=== PATIENT | female | born 1965 | race African-American/Black ===

== ENCOUNTER → 2016-03-22 | Outpatient (CLI) | payer OTHER ==
--- NOTE | 2016-03-24 09:43 | MM ---
Reason for exam: screening (asymptomatic). Last mammogram was performed 1 year and 1 month ago. History: Patient is postmenopausal. Taking hormonal contraceptives for 2 years. Physical Findings: A clinical breast exam by your physician is recommended on an annual basis and results should be correlated with mammographic findings. MG Screening Mammo w CAD Bilateral CC and MLO view(s) were taken. Prior study comparison: February 24, 2015, bilateral MG screening mammo w CAD. May 21, 2013, bilateral digital screening mammo w/CAD. The breast tissue is heterogeneously dense. This may lower the sensitivity of mammography. Stable nodule left breast. No significant changes when compared with prior studies. ASSESSMENT: Benign, BI-RAD 2 RECOMMENDATION: Routine screening mammogram of both breasts in 1 year.
== END | disposition home or self-care (01) ==
LOC: RADMAMWWP 10:51
PROVIDERS: ATTEND Obstetrics & Gynecology
DX: Z12.31 Encounter for screening mammogram for malignant neoplasm of breast (principal)

== ENCOUNTER → 2016-05-25 | Outpatient (CLI) | payer OTHER ==
[2016-05-25 13:43] LABS: Basophils % (A) 1 %; CHCM 28.9; Eosinophils % (A) 1 %; HCT 42.6 % (34.0-46.0); HDW 2.45; HGB 12.5 gm/dL (11.4-16.0); Hypochromasia Marked; Luc # (Auto) 0.17; Luc % (Auto) 4; Lymphocytes # (A) 1.2 k/uL (1.0-4.8); Lymphocytes % (A) 28 %; MCH 24.6 pg (25.0-35.0); MCHC 29.4 g/dL (31.0-37.0); MCV 83.7 fL (80.0-100.0); Mean Platelet Volume 6.4; Monocytes # (A) 0.3 k/uL (0-1.0); Monocytes % (A) 7 %; Neutrophils # (A) 2.7 k/uL (1.3-7.7); Neutrophils % (A) 60 %; RBC 5.09 m/uL (3.80-5.40); RDW 13.6 % (11.5-15.5); WBC 4.5 k/uL (3.8-10.6); WBC (Perox) 4.64
[2016-05-25 13:55] LABS: ALT 41 U/L (9-52); AST 37 U/L (14-36)
== END | disposition home or self-care (01) ==
LOC: LABMAIN 12:52
PROVIDERS: ATTEND Dermatology
DX: B35.1 Tinea unguium (principal)
CPT/HCPCS: 36415; 84450; 84460; 85025

== ENCOUNTER → 2016-07-06 | Outpatient (CLI) | payer OTHER ==
[2016-07-06 13:42] LABS: Basophils % (A) 0 %; CHCM 29.2; Eosinophils % (A) 1 %; HDW 2.47; Hypochromasia Marked; Luc # (Auto) 0.15; Luc % (Auto) 3; Lymphocytes # (A) 1.4 k/uL (1.0-4.8); Lymphocytes % (A) 27 %; MCH 24.5 pg (25.0-35.0); MCHC 29.6 g/dL (31.0-37.0); MCV 82.7 fL (80.0-100.0); Mean Platelet Volume 6.2; Monocytes # (A) 0.4 k/uL (0-1.0); Monocytes % (A) 7 %; Neutrophils # (A) 3.3 k/uL (1.3-7.7); Neutrophils % (A) 62 %; RBC 5.32 m/uL (3.80-5.40); RDW 13.1 % (11.5-15.5); WBC 5.3 k/uL (3.8-10.6); WBC (Perox) 5.23
[2016-07-06 13:50] LABS: ALT 53 U/L (9-52); AST 46 U/L (14-36)
== END | disposition home or self-care (01) ==
LOC: LABMAIN 12:14
PROVIDERS: ATTEND Nurse Practitioner Family
DX: B35.1 Tinea unguium (principal); L65.8 Other specified nonscarring hair loss; L70.0 Acne vulgaris
CPT/HCPCS: 36415; 84450; 84460; 85025

== ENCOUNTER 2016-08-15 20:42 | Observation (INO) | payer OTHER ==
[2016-08-15] MEDS ORDERED: ONDANSETRON 4 MG/2 ML VIAL IVP STA (21:18)
[2016-08-15] MEDS ORDERED: MECLIZINE 12.5 MG TAB PO STA (21:18)
[2016-08-15] MEDS ORDERED: SODIUM CHLORIDE 0.9% 1,000 ML IV STA (21:18)
[2016-08-15] MEDS ORDERED: LORazepam 2 MG/ML SYRINGE IV STA (21:18)
--- NOTE | 2016-08-15 21:18 | ED ---
Dizziness HPI - General Source: patient, RN notes reviewed, old records reviewed Mode of arrival: wheelchair Limitations: no limitations <Jerrica Box - Last Filed: 08/16/16 00:18> <Angelo Kumar - Last Filed: 08/16/16 01:07> - General Chief Complaint: Dizziness Stated Complaint: Heart racing, Dizziness Time Seen by Provider: 08/15/16 21:05 - History of Present Illness Initial Comments: This is a 51-year-old female presenting to the emergency Department chief complaint of 1 day of dizziness and lightheadedness. She also reports that she' s been vomiting. She also states that she feels like her heart is racing. She states that she has some chest discomfort. She denies any fevers or chills. She reports that yesterday she did feel like she would have the initial start of a sinus infection. She states that she did take some Tylenol headache and pain. Patient states that she was feeling somewhat better earlier this morning and then it recurred again tonight. Patient has had a lot of recent stressors in her life including the loss of her son from a tragic accident. Patient's thinks that this could be related to the amount of stress that she's been under. (Jerrica Box) - Related Data Home Medications Medication Instructions Recorded Confirmed No Known Home Medications [No 08/15/16 08/15/16 Known Home Medications] Allergies Allergy/AdvReac Type Severity Reaction Status Date / Time No Known Allergies Allergy Verified 08/15/16 21:23 Review of Systems ROS Other: All systems not noted in ROS Statement are negative. <Jerrica Box - Last Filed: 08/16/16 00:18> ROS Other: All systems not noted in ROS Statement are negative. <Angelo Kumar - Last Filed: 08/16/16 01:07> ROS Statement: Those systems with pertinent positive or pertinent negative responses have been documented in the HPI. Past Medical History Past Medical History: GERD/Reflux, Osteoarthritis (OA) Additional Past Medical History / Comment(s): bilateral knee pain History of Any Multi-Drug Resistant Organisms: None Reported Past Surgical History: Appendectomy, Orthopedic Surgery Additional Past Surgical History / Comment(s): 07/31/15 Laparoscopic Anna Fundoplication. 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 Absent: scleral icterus, conjunctival injection, periorbital swelling ENT exam: Present: normal exam, mucous membranes moist Neck exam: Present: normal inspection. Absent: tenderness, meningismus, lymphadenopathy Respiratory exam: Present: normal lung sounds bilaterally. Absent: respiratory distress, wheezes, rales, rhonchi, stridor Cardiovascular Exam: Present: regular rate, normal rhythm, normal heart sounds. Absent: systolic murmur, diastolic murmur, rubs, gallop, clicks GI/Abdominal exam: Present: soft, normal bowel sounds. Absent: distended, tenderness, guarding, rebound, rigid Extremities exam: Present: normal inspection, full ROM, normal capillary refill. Absent: tenderness, pedal edema, joint swelling, calf tenderness Back exam: Present: normal inspection Neurological exam: Present: alert, oriented X3, CN II-XII intact Psychiatric exam: Present: normal affect, normal mood Skin exam: Present: warm, dry, intact, normal color. Absent: rash <Jerrica Box - Last Filed: 08/16/16 00:18> General appearance: alert, in no apparent distress, anxious Head exam: Present: atraumatic, normocephalic, normal inspection Eye exam: Present: normal appearance, PERRL, EOMI. Absent: scleral icterus, conjunctival injection, periorbital swelling ENT exam: Present: normal exam, mucous membranes moist Neck exam: Present: normal inspection. Absent: tenderness, meningismus, lymphadenopathy Respiratory exam: Present: normal lung sounds bilaterally. Absent: respiratory distress, wheezes, rales, rhonchi, stridor Cardiovascular Exam: Present: regular rate, normal rhythm, normal heart sounds. Absent: systolic murmur, diastolic murmur, rubs, gallop, clicks GI/Abdominal exam: Present: soft, normal bowel sounds. Absent: distended, tenderness, guarding, rebound, rigid Extremities exam: Present: normal inspection, full ROM, normal capillary refill. Absent: tenderness, pedal edema, joint swelling, calf tenderness Back exam: Present: normal inspection Neurological exam: Present: alert, oriented X3, CN II-XII intact Psychiatric exam: Present: normal affect, normal mood Skin exam: Present: warm, dry, intact, normal color. Absent: rash <Angelo Kumar - Last Filed: 08/16/16 01:07> - General Exam Comments Initial Comments: 51-year-old female. Patient does appear to be consistent in some discomfort. ( Jerrica Box) Course <Jerrica Box - Last Filed: 08/16/16 00:18> <Angelo Kumar - Last Filed: 08/16/16 01:07> Vital Signs 08/15/16 08/15/16 08/15/16 20:45 22:24 22:54 Temperature 97 F L Pulse Rate 67 85 82 Respiratory 18 16 16 Rate Blood Pressure 138/84 130/78 145/66 O2 Sat by Pulse 100 95 100 Oximetry 08/15/16 08/16/16 23:54 00:47 Temperature 98 F 97.9 F Pulse Rate 85 87 Respiratory 16 16 Rate Blood Pressure 124/66 118/62 O2 Sat by Pulse 99 100 Oximetry - Reevaluation(s) Reevaluation #1: 08/15/16 23:05 is reevaluated at this time. She is feeling still dizzy. She reports that she sees double. Patient does have some horizontal nystagmus with staring. (Jerrica Box) Medical Decision Making - Lab Data Result diagrams: 08/15/16 22:00 08/15/16 22:00 <Jerrica Box - Last Filed: 08/16/16 00:18> - Lab Data Result diagrams: 08/15/16 22:00 08/15/16 22:00 <Angelo Kumar - Last Filed: 08/16/16 01:07> - Medical Decision Making 51 female in the ER for evaluation of palpitations chest pain, patient has normal EKG, normal troponin will be admitted for cardiac observation (Angelo Kumar) - Lab Data Lab Results 08/15/16 08/15/16 08/15/16 Range/Units 22:00 22:00 22:00 WBC 5.8 (3.8-10.6) k/uL RBC 4.51 (3.80-5.40) m/uL Hgb 11.2 L (11.4-16.0) gm/dL Hct 36.2 (34.0-46.0) % MCV 80.4 (80.0-100.0) fL MCH 24.8 L (25.0-35.0) pg MCHC 30.8 L (31.0-37.0) g/dL RDW 13.9 (11.5-15.5) % Plt Count 185 (150-450) k/uL Neutrophils % 66 % Lymphocytes % 24 % Monocytes % 6 % Eosinophils % 2 % Basophils % 0 % Neutrophils # 3.8 (1.3-7.7) k/uL Lymphocytes # 1.4 (1.0-4.8) k/uL Monocytes # 0.3 (0-1.0) k/uL Eosinophils # 0.1 (0-0.7) k/uL Basophils # 0.0 (0-0.2) k/uL Hypochromasia Moderate PT (9.0-12.0) sec INR (<1.1) Sodium 140 (137-145) mmol/L Potassium 4.2 (3.5-5.1) mmol/L Chloride 108 H (98-107) mmol/L Carbon Dioxide 25 (22-30) mmol/L Anion Gap 7 mmol/L BUN 25 H (7-17) mg/dL Creatinine 0.89 (0.52-1.04) mg/dL Est GFR (MDRD) Af Amer >60 (>60 ml/min/1.73 sqM) Est GFR (MDRD) Non-Af >60 (>60 ml/min/1.73 sqM) Glucose 119 H (74-99) mg/dL Plasma Lactic Acid Ugo 0.8 (0.7-2.0) mmol/L Calcium 9.1 (8.4-10.2) mg/dL Total Bilirubin 0.3 (0.2-1.3) mg/dL AST 37 H (14-36) U/L ALT 34 (9-52) U/L Alkaline Phosphatase 67 (38-126) U/L Troponin I (0.000-0.034) ng/mL Total Protein 6.7 (6.3-8.2) g/dL Albumin 3.9 (3.5-5.0) g/dL Urine Color Urine Appearance (Clear) Urine pH (5.0-8.0) Ur Specific [place] (1.001-1.035) Urine Protein (Negative) Urine Glucose (UA) (Negative) Urine Ketones (Negative) Urine Blood (Negative) Urine Nitrite (Negative) Urine Bilirubin (Negative) Urine Urobilinogen (<2.0) mg/dL Ur Leukocyte Esterase (Negative) Urine RBC (0-5) /hpf Urine WBC (0-5) /hpf 08/15/16 08/15/16 08/15/16 Range/Units 22:00 22:00 22:00 WBC (3.8-10.6) k/uL RBC (3.80-5.40) m/uL Hgb (11.4-16.0) gm/dL Hct (34.0-46.0) % MCV (80.0-100.0) fL MCH (25.0-35.0) pg MCHC (31.0-37.0) g/dL RDW (11.5-15.5) % Plt Count (150-450) k/uL Neutrophils % % Lymphocytes % % Monocytes % % Eosinophils % % Basophils % % Neutrophils # (1.3-7.7) k/uL Lymphocytes # (1.0-4.8) k/uL Monocytes # (0-1.0) k/uL Eosinophils # (0-0.7) k/uL Basophils # (0-0.2) k/uL Hypochromasia PT 10.2 (9.0-12.0) sec INR 1.0 (<1.1) Sodium (137-145) mmol/L Potassium (3.5-5.1) mmol/L Chloride (98-107) mmol/L Carbon Dioxide (22-30) mmol/L Anion Gap mmol/L BUN (7-17) mg/dL Creatinine (0.52-1.04) mg/dL Est GFR (MDRD) Af Amer (>60 ml/min/1.73 sqM) Est GFR (MDRD) Non-Af (>60 ml/min/1.73 sqM) Glucose (74-99) mg/dL Plasma Lactic Acid Ugo (0.7-2.0) mmol/L Calcium (8.4-10.2) mg/dL Total Bilirubin (0.2-1.3) mg/dL AST (14-36) U/L ALT (9-52) U/L Alkaline Phosphatase (38-126) U/L Troponin I <0.012 (0.000-0.034) ng/mL Total Protein (6.3-8.2) g/dL Albumin (3.5-5.0) g/dL Urine Color Yellow Urine Appearance Clear (Clear) Urine pH 6.5 (5.0-8.0) Ur Specific [place] 1.018 (1.001-1.035) Urine Protein Negative (Negative) Urine Glucose (UA) Negative (Negative) Urine Ketones Negative (Negative) Urine Blood Moderate H (Negative) Urine Nitrite Negative (Negative) Urine Bilirubin Negative (Negative) Urine Urobilinogen <2.0 (<2.0) mg/dL Ur Leukocyte Esterase Negative (Negative) Urine RBC 53 H (0-5) /hpf Urine WBC 1 (0-5) /hpf 08/15/16 21:56 EKG shows normal sinus rhythm. No evidence of atrial or ventricular arrhythmias. Endocrine 60 beats per minute. NM normal 94 ms. QRS ratio 80 ms. QT/QTc is 400/425 ms. No evidence of ST elevation or T-wave inversion. No evidence of atrial or ventricular arrhythmias. (Jerrica Box) Critical Care Time Critical Care Time: Yes Total Critical Care Time: 31 <Angelo Kumar - Last Filed: 08/16/16 01:07> Disposition Time of Disposition: 00:19 <Jerrica Box - Last Filed: 08/16/16 00:18> <Angelo Kumar - Last Filed: 08/16/16 01:07> Clinical Impression: Chest pain, Dizziness Disposition: ADMITTED IP TO THIS HOSP Condition: Good Instructions: Dizziness (ED) Referrals: Jasbir Smalls MD [Primary Care Provider] - 1-2 days
[2016-08-15 22:16] LABS: Basophils % (A) 0 %; CH 24.6; CHCM 30.8; Eosinophils # (A) 0.1 k/uL (0-0.7); Eosinophils % (A) 2 %; HCT 36.2 % (34.0-46.0); HDW 2.66; HGB 11.2 gm/dL (11.4-16.0); Hypochromasia Moderate; Luc # (Auto) 0.15; Luc % (Auto) 3; Lymphocytes # (A) 1.4 k/uL (1.0-4.8); Lymphocytes % (A) 24 %; MCH 24.8 pg (25.0-35.0); MCHC 30.8 g/dL (31.0-37.0); MCV 80.4 fL (80.0-100.0); Mean Platelet Volume 6.8; Monocytes # (A) 0.3 k/uL (0-1.0); Monocytes % (A) 6 %; Neutrophils # (A) 3.8 k/uL (1.3-7.7); Neutrophils % (A) 66 %; RBC 4.51 m/uL (3.80-5.40); RDW 13.9 % (11.5-15.5); WBC 5.8 k/uL (3.8-10.6); WBC (Perox) 5.59
[2016-08-15 22:18] LABS: Prothrombin Time 10.2 sec (9.0-12.0)
[2016-08-15 22:20] LABS: ALT 34 U/L (9-52); AST 37 U/L (14-36); Alkaline Phosphatase 67 U/L (38-126); Anion Gap 7 mmol/L; Blood Urea Nitrogen 25 mg/dL (7-17); Calcium 9.1 mg/dL (8.4-10.2); Carbon Dioxide 25 mmol/L (22-30); Chloride 108 mmol/L (98-107); Glucose 119 mg/dL (74-99); Non-African American GFR(MDRD) >60 (>60 ml/min/1.73 sqM); Potassium 4.2 mmol/L (3.5-5.1); Sodium 140 mmol/L (137-145); Total Bilirubin 0.3 mg/dL (0.2-1.3); Total Protein 6.7 g/dL (6.3-8.2)
[2016-08-15 22:25] VITALS: RESP 16
[2016-08-15 22:41] LABS: Appearance,Urine Clear (Clear); Bilirubin,Urine Negative (Negative); Glucose,Urine (UA) Negative (Negative); Ketones,Urine Negative (Negative); Leukocyte Esterase,Urine Negative (Negative); Nitrite,Urine Negative (Negative); PH, Urine 6.5 (5.0-8.0); Particle Count 611; Protein,Urine Negative (Negative); RBC,Urine 53 /hpf (0-5); Specific Gravity,Urine 1.018 (1.001-1.035); UA Billing (MACRO vs. MICRO) MICRO; Urobilinogen,Urine <2.0 mg/dL (<2.0); WBC,Urine 1 /hpf (0-5)
--- NOTE | 2016-08-15 22:52 | XR ---
EXAM: XR Chest, 2 Views CLINICAL HISTORY: Reason: Pain TECHNIQUE: Frontal and lateral views of the chest. COMPARISON: 04/09/15 FINDINGS: Lungs: Low lung volumes. Lungs are otherwise clear. Pleural space: Unremarkable. No pneumothorax. Heart: Unremarkable. No cardiomegaly. Mediastinum: Unremarkable. Bones/joints: Unremarkable. IMPRESSION: No acute findings.
[2016-08-16] MEDS ORDERED: ASPIRIN 325 MG TAB PO STA (00:18)
[2016-08-16] MEDS ORDERED: ACETAMINOPHEN TAB 325 MG TAB PO PRN (00:19)
[2016-08-16] MEDS ORDERED: NALOXONE 0.4 MG/ML 1 ML VIAL IV PRN (00:19)
[2016-08-16] MEDS ORDERED: IBUPROFEN 400 MG TAB PO PRN (00:19)
[2016-08-16] MEDS ORDERED: ONDANSETRON 4 MG/2 ML VIAL IVP PRN (00:19)
[2016-08-16] MEDS ORDERED: SODIUM CHLORIDE 0.9% 1,000 ML IV SCH (00:30)
[2016-08-16 02:01] VITALS: BMI 31.4
[2016-08-16] MEDS ORDERED: guaiFENesin SYRUP 100MG/5ML 200 MG/10 ML CUP PO PRN (02:11)
[2016-08-16 08:16] LABS: Creatine Kinase 412 U/L (30-135)
[2016-08-16 08:27] LABS: Troponin I <0.012 ng/mL (0.000-0.034)
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
[2016-08-16 08:33] LABS: Creatine Kinase MB 2.8 ng/mL (0.0-2.4)
[2016-08-16] MEDS ORDERED: PANTOPRAZOLE 40 MG/10 ML VIAL IV SCH (09:00)
[2016-08-16 10:35] LABS: Creatine Kinase 379 U/L (30-135)
[2016-08-16 10:48] LABS: Creatine Kinase MB 2.4 ng/mL (0.0-2.4); Troponin I <0.012 ng/mL (0.000-0.034)
[2016-08-16 12:27] VITALS: BP 118/61; PULSE 65; TEMP 98.4
[2016-08-16] MEDS ORDERED: MECLIZINE 12.5 MG TAB PO PRN (12:27)
--- NOTE | 2016-08-16 12:58 | ECHOF ---
Referral Reason:Chest pain and cardiomyopathy MEASUREMENTS -------- HEIGHT: 175.3 cm WEIGHT: 96.2 kg BP: 130/60 IVSd: 0.9 cm (0.6 - 1.1) LVIDd: 4.4 cm (3.9 - 5.3) LVPWd: 1.0 cm (0.6 - 1.1) IVSs: 1.4 cm LVIDs: 2.5 cm LVPWs: 1.7 cm LAESV Index (A-L): 29.79 ml/m Ao Diam: 3.4 cm (2.0 - 3.7) AV Cusp: 2.2 cm (1.5 - 2.6) LA Diam: 3.0 cm (2.7 - 3.8) MV EXCURSION: 13.883 mm (> 18.000) MV EF SLOPE: 104 mm/s (70 - 150) EPSS: 0.2 cm MV E Freeman: 0.76 m/s MV DecT: 296 ms MV A [place]: 0.85 m/s MV E/A Ratio: 0.89 RAP: 5.00 mmHg RVSP: 28.93 mmHg FINDINGS -------- Sinus rhythm. This was a technically good study. Left ventricular wall thickness is normal. Overall left ventricular systolic function is normal with, an EF between 55 - 60 %. The right ventricle is normal in size and function. LA is midly dilated 29-33ml/m2. The right atrium is normal in size. The aortic valve is trileaflet, and appears structurally normal. No aortic stenosis or regurgitation. Mild mitral regurgitation is present. Mild tricuspid regurgitation present. The right ventricular systolic pressure, as measured by Doppler, is 28.93mmHg. Pulmonic valve appears structurally normal. The aortic root size is normal. The pericardium is normal. CONCLUSIONS -------- 1. Sinus rhythm. 2. Mild tricuspid regurgitation present. 3. The right ventricular systolic pressure, as measured by Doppler, is 28.93mmHg. 4. Pulmonic valve appears structurally normal. 5. The aortic root size is normal. 6. The pericardium is normal. 7. This was a technically good study. 8. Left ventricular wall thickness is normal. 9. Overall left ventricular systolic function is normal with, an EF between 55 - 60 %. 10. The right ventricle is normal in size and function. 11. LA is midly dilated 29-33ml/m2. 12. The right atrium is normal in size. 13. The aortic valve is trileaflet, and appears structurally normal. No aortic stenosis or regurgitation. 14. Mild mitral regurgitation is present. DEVELOPMENTAL THERAPIST: Kimberly Garcia RDCS
--- NOTE | 2016-08-24 10:19 | HP ---
COMBINATION H&P AND DISCHARGE SUMMARY CHIEF COMPLAINTS: Chest pain and dizziness. HISTORY OF PRESENT ILLNESS: This 51-year-old woman with a past medical history of multiple medical problems such as GERD, DJD, was admitted with chest pain, dizziness. The patient is also undergoing several stressors. The patient also was vomiting, with multiple symptomatology. The patient had a headache as well. There is no history of any fever, rigor or chills. No history of loss of consciousness, seizures. No hematochezia, melena. PAST MEDICAL HISTORY: 1. GERD. 2. DJD. 3. History of bilateral knee pain. MEDICATIONS: None. ALLERGIES: NONE. FAMILY HISTORY: No history of heart disease or strokes in the family. SOCIAL HISTORY: No history of smoking. No history of alcohol intake. REVIEW OF SYSTEMS: ENT: No diminished hearing. No diminished vision. CARDIOVASCULAR SYSTEM: No angina. RESPIRATORY SYSTEM: As mentioned earlier. GI: As mentioned earlier. : No dysuria, retention. NERVOUS SYSTEM: No numbness, weakness. ALLERGY/IMMUNOLOGY: No asthma, hayfever. MUSCULOSKELETAL: As mentioned earlier. HEMATOLOGY/ONCOLOGY: No history of anemia. ENDOCRINE: No history of diabetes or hypothyroidism. CONSTITUTIONAL: As mentioned earlier. DERMATOLOGIC: Negative. RHEUMATOLOGIC: Negative. PSYCHIATRY: As mentioned earlier. PHYSICAL EXAMINATION: Patient is alert and oriented x3. Pulse is 69, blood pressure 130/87 respiration 20, temperature normal, pulse ox 97% on room air. HEENT: Conjunctivae normal. NECK: No jugular venous congestion. CARDIAC: S1, S2 muffled. RESPIRATORY: Breath sounds diminished at the bases. No rhonchi. No crackles. ABDOMEN: Soft. Non-tender. No mass palpable. LEGS: No edema. No swelling. NERVOUS SYSTEM: Higher functions as mentioned earlier. Cranial nerves 2 through 12 grossly intact. Moves all 4 limbs. No signs of cerebellar dysfunction. No focal motor neurologic deficit. LYMPHATICS: No lymph node palpable in neck, axillae or groin. SKIN: Normal. JOINTS: No active deforming arthropathy. LABS: WBC 5.8, hemoglobin 11.2. Creatine kinase 412. Troponins are normal. ASSESSMENT: 1. Chest pain, possibly musculoskeletal, possibly reflux esophagitis. 2. Dizziness. 3. History of degenerative joint disease. 4. History of gastroesophageal reflux disease. 5. Appendectomy. RECOMMENDATIONS AND DISCUSSION: In this 51-year-old woman who presented with multiple medical problems, we will monitor the patient closely. Cardiology has recommended discharge at this time. No evidence of any acute coronary event. Recommend outpatient followup with Cardiology. Otherwise, Antivert has been recommended. See order for further details. Prognosis guarded. Closely follow with primary physician. [place]
== END 2016-08-16 15:25 | disposition home or self-care (01) ==
LOC: EC 20:42 → 3OBS 08-16 01:07
PROVIDERS: ADMIT Internal Medicine; ATTEND Internal Medicine
DX: R07.89 Other chest pain (principal); R42 Dizziness and giddiness; R00.2 Palpitations; R51 Headache; R11.2 Nausea with vomiting, unspecified; R20.0 Anesthesia of skin; K21.0 Gastro-esophageal reflux disease with esophagitis; M19.90 Unspecified osteoarthritis, unspecified site
CPT/HCPCS: 96361 ×2; 96375 ×2; 96374; 99291; 36415; 93005; 93306; 80053; 82550; 82553; 83605; 84484 ×2; 85025; 85610; 81001; 71020; G0378; J2060; J2405; C9113

== ENCOUNTER 2018-02-19 16:48 | Inpatient (IN) | payer BC, OTHER ==
[2018-02-19] MEDS ORDERED: ONDANSETRON 4 MG/2 ML VIAL IVP STA (17:18)
[2018-02-19] MEDS ORDERED: SODIUM CHLORIDE 0.9% 1,000 ML IV STA (17:18)
[2018-02-19] MEDS ORDERED: DIAZEPAM 5 MG/ML 2 ML INJ IVP STA (17:18)
--- NOTE | 2018-02-19 17:26 | ED ---
Dizziness HPI <Blake Jones - Last Filed: 02/19/18 19:16> - General Source: patient Mode of arrival: wheelchair Limitations: no limitations <Marimar Gonzales - Last Filed: 02/19/18 19:24> - General Chief Complaint: Dizziness Stated Complaint: Dizzy, Heartburn Time Seen by Provider: 02/19/18 17:10 - History of Present Illness Initial Comments: 53-year-old female patient presents to the emergency department today with complaints of dizziness, chest pain, racing heart, and headache. Patient states that for the last 2 days she has had dizziness at rest, she states the dizziness is worse when she stands or bends forward. States it feels like the room is spinning. She has been nauseated and did have several episodes of dry heaves. She denies any ear pain, nasal congestion, sore throat, cough. States that she has been having chest pain on and off for the last year since her son . States she feels it is related to anxiety. She does report some intermittent shortness of breath with this. States she is having a frontal headache but denies any blurred vision or double vision. Denies any numbness or tingling to her extremities. Denies any weakness to extremities. Patient denies any recent rash, fever, chills, abdominal pain, diarrhea, constipation, back pain, hematuria, dysuria, urinary urgency, urinary frequency, or any other complaints. (Marimar Gonzales) - Related Data Home Medications Medication Instructions Recorded Confirmed Calcium Carbonate [Tums] 500 mg PO BID PRN 02/19/18 02/19/18 Ibuprofen [Motrin Ib] 400 mg PO Q6H PRN 02/19/18 02/19/18 [place]-3 Fatty Acids/Fish Oil [Fish 1 cap PO DAILY 02/19/18 02/19/18 Oil 1,000 mg Softgel] Allergies Allergy/AdvReac Type Severity Reaction Status Date / Time No Known Allergies Allergy Verified 02/19/18 17:39 Review of Systems ROS Other: All systems not noted in ROS Statement are negative. <Blake Jones - Last Filed: 02/19/18 19:16> ROS Other: All systems not noted in ROS Statement are negative. <Marimar Gonzales - Last Filed: 02/19/18 19:24> ROS Statement: Those systems with pertinent positive or pertinent negative responses have been documented in the HPI. Past Medical History Past Medical History: GERD/Reflux, Osteoarthritis (OA), Syncope Additional Past Medical History / Comment(s): bilateral knee pain History of Any Multi-Drug Resistant Organisms: None Reported Past Surgical History: Appendectomy, Orthopedic Surgery Additional Past Surgical History / Comment(s): 07/31/15 Laparoscopic Anna Fundoplication. 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 Vital signs upon presentation are temperature 97.9F, pulse 61, respirations 16, blood pressure 141/86, pulse ox 100% on room air.) Eye exam: Present: normal appearance, PERRL, EOMI. Absent: scleral icterus, conjunctival injection, periorbital swelling ENT exam: Present: normal exam, normal oropharynx, mucous membranes moist Respiratory exam: Present: normal lung sounds bilaterally. Absent: respiratory distress, wheezes, rales, rhonchi, stridor Cardiovascular Exam: Present: regular rate, normal rhythm, normal heart sounds. Absent: systolic murmur, diastolic murmur, rubs, gallop, clicks GI/Abdominal exam: Present: soft, normal bowel sounds. Absent: distended, tenderness, guarding, rebound, rigid Neurological exam: Present: alert, oriented X3, CN II-XII intact Psychiatric exam: Present: normal affect, normal mood Skin exam: Present: warm, dry, intact, normal color. Absent: rash <Marimar Gonzales - Last Filed: 02/19/18 19:24> Course <Blake Jones - Last Filed: 02/19/18 19:16> <Marimar Gonzales - Last Filed: 02/19/18 19:24> Vital Signs 02/19/18 02/19/18 17:02 18:14 Temperature 97.9 F Pulse Rate 61 63 Respiratory 16 18 Rate Blood Pressure 141/86 131/80 O2 Sat by Pulse 100 100 Oximetry - Reevaluation(s) Reevaluation #1: 02/19/18 19:16 N P supervision: I proceeded [id number] evaluation the patient did discuss the findings with her. She has had chest pain "for some time" today she has midsternal chest pain somewhat sharp in nature. No cough or phlegm production no fevers chills or sweats. She will be admitted for evaluation of chest pain. EKG was reviewed showing no acute findings. The case is discussed with Dr. rosado who is covering Dr. Smalls (Blake Jones) EKG Findings - EKG Comments: EKG Findings:: EKG obtained at 1753 shows normal sinus rhythm with a sinus arrhythmia. Ventricular rate is 63, CO interval 202, QRS duration 96, QTC 414, QTC 423. No evidence of ST elevation or depression. <Marimar Gonzales - Last Filed: 02/19/18 19:24> Medical Decision Making - Lab Data Result diagrams: 02/19/18 17:41 02/19/18 17:41 <Blake Jones - Last Filed: 02/19/18 19:16> - Lab Data Result diagrams: 02/19/18 17:41 02/19/18 17:41 - Radiology Data Radiology results: report reviewed, image reviewed <Marimar Gonzales - Last Filed: 02/19/18 19:24> - Medical Decision Making 53-year-old female patient presented to the emergency department today for complaints of dizziness and chest pain. Physical examination is relatively unremarkable. Pain was not reproducible upon palpation. Patient was quite anxious upon arrival, crying and tearful. Labs reviewed and are unremarkable. Patient was given 5 mg of Valium IV push, upon reevaluation she reports dizziness has resolved however she is still complaining of substernal chest pain. This could be related to anxiety as well however given patient's age and risk factors we'll admit for overnight observation and serial troponins. We will start heparin and consult cardiology. Did discuss findings, results, and plan with the patient, she is agreeable. (Marimar Gonzales) - Lab Data Lab Results 02/19/18 02/19/18 02/19/18 Range/Units 17:41 17:41 17:41 WBC 4.3 (3.8-10.6) k/uL RBC 5.07 (3.80-5.40) m/uL Hgb 12.0 (11.4-16.0) gm/dL Hct 40.1 (34.0-46.0) % MCV 79.0 L (80.0-100.0) fL MCH 23.7 L (25.0-35.0) pg MCHC 30.0 L (31.0-37.0) g/dL RDW 13.5 (11.5-15.5) % Plt Count 144 L (150-450) k/uL Neutrophils % 61 % Lymphocytes % 28 % Monocytes % 6 % Eosinophils % 1 % Basophils % 0 % Neutrophils # 2.6 (1.3-7.7) k/uL Lymphocytes # 1.2 (1.0-4.8) k/uL Monocytes # 0.3 (0-1.0) k/uL Eosinophils # 0.1 (0-0.7) k/uL Basophils # 0.0 (0-0.2) k/uL Hypochromasia Marked PT (9.0-12.0) sec INR (<1.2) APTT (22.0-30.0) sec Sodium 139 (137-145) mmol/L Potassium 4.4 (3.5-5.1) mmol/L Chloride 107 (98-107) mmol/L Carbon Dioxide 26 (22-30) mmol/L Anion Gap 6 mmol/L BUN 20 H (7-17) mg/dL Creatinine 0.80 (0.52-1.04) mg/dL Est GFR (CKD-EPI)AfAm >90 (>60 ml/min/1.73 sqM) Est GFR (CKD-EPI)NonAf 84 (>60 ml/min/1.73 sqM) Glucose 100 H (74-99) mg/dL Calcium 9.7 (8.4-10.2) mg/dL Magnesium 2.0 (1.6-2.3) mg/dL Total Bilirubin 0.3 (0.2-1.3) mg/dL AST 31 (14-36) U/L ALT 34 (9-52) U/L Alkaline Phosphatase 52 (38-126) U/L Total Creatine Kinase 254 H (30-135) U/L CK-MB (CK-2) <0.2 (0.0-2.4) ng/mL CK-MB (CK-2) Rel Index Troponin I (0.000-0.034) ng/mL Total Protein 7.2 (6.3-8.2) g/dL Albumin 4.1 (3.5-5.0) g/dL Urine Color Urine Appearance (Clear) Urine pH (5.0-8.0) Ur Specific [place] (1.001-1.035) Urine Protein (Negative) Urine Glucose (UA) (Negative) Urine Ketones (Negative) Urine Blood (Negative) Urine Nitrite (Negative) Urine Bilirubin (Negative) Urine Urobilinogen (<2.0) mg/dL Ur Leukocyte Esterase (Negative) Urine RBC (0-5) /hpf Urine WBC (0-5) /hpf Ur Squamous Epith Cells (0-4) /hpf Urine Bacteria (None) /hpf Urine Mucus (None) /hpf 02/19/18 02/19/18 02/19/18 Range/Units 17:41 17:41 18:43 WBC (3.8-10.6) k/uL RBC (3.80-5.40) m/uL Hgb (11.4-16.0) gm/dL Hct (34.0-46.0) % MCV (80.0-100.0) fL MCH (25.0-35.0) pg MCHC (31.0-37.0) g/dL RDW (11.5-15.5) % Plt Count (150-450) k/uL Neutrophils % % Lymphocytes % % Monocytes % % Eosinophils % % Basophils % % Neutrophils # (1.3-7.7) k/uL Lymphocytes # (1.0-4.8) k/uL Monocytes # (0-1.0) k/uL Eosinophils # (0-0.7) k/uL Basophils # (0-0.2) k/uL Hypochromasia PT 10.0 (9.0-12.0) sec INR 0.9 (<1.2) APTT 22.9 (22.0-30.0) sec Sodium (137-145) mmol/L Potassium (3.5-5.1) mmol/L Chloride (98-107) mmol/L Carbon Dioxide (22-30) mmol/L Anion Gap mmol/L BUN (7-17) mg/dL Creatinine (0.52-1.04) mg/dL Est GFR (CKD-EPI)AfAm (>60 ml/min/1.73 sqM) Est GFR (CKD-EPI)NonAf (>60 ml/min/1.73 sqM) Glucose (74-99) mg/dL Calcium (8.4-10.2) mg/dL Magnesium (1.6-2.3) mg/dL Total Bilirubin (0.2-1.3) mg/dL AST (14-36) U/L ALT (9-52) U/L Alkaline Phosphatase (38-126) U/L Total Creatine Kinase (30-135) U/L CK-MB (CK-2) (0.0-2.4) ng/mL CK-MB (CK-2) Rel Index Troponin I <0.012 (0.000-0.034) ng/mL Total Protein (6.3-8.2) g/dL Albumin (3.5-5.0) g/dL Urine Color Light Yellow Urine Appearance Clear (Clear) Urine pH 6.0 (5.0-8.0) Ur Specific [place] 1.015 (1.001-1.035) Urine Protein Negative (Negative) Urine Glucose (UA) Negative (Negative) Urine Ketones Negative (Negative) Urine Blood Negative (Negative) Urine Nitrite Negative (Negative) Urine Bilirubin Negative (Negative) Urine Urobilinogen <2.0 (<2.0) mg/dL Ur Leukocyte Esterase Moderate H (Negative) Urine RBC 2 (0-5) /hpf Urine WBC <1 (0-5) /hpf Ur Squamous Epith Cells 2 (0-4) /hpf Urine Bacteria Rare H (None) /hpf Urine Mucus Rare H (None) /hpf - Radiology Data Two-view x-ray of the chest is obtained. Report was reviewed in its entirety. Impression by Dr. Elias shows no active cardiopulmonary disease. No change. (Marimar Gonzales) Disposition <Blake Jones - Last Filed: 02/19/18 19:16> Decision to Admit Reason: Admit from EC Decision Date: 02/19/18 Decision Time: 19:24 <Marimar Gonzales - Last Filed: 02/19/18 19:24> Clinical Impression: Chest pain Disposition: ADMITTED IP TO THIS [facility] Condition: Serious Referrals: Jasbir Smalls MD [Primary Care Provider] - 1-2 days
[2018-02-19 18:00] LABS: Basophils % (A) 0 %; Eosinophils # (A) 0.1 k/uL (0-0.7); Eosinophils % (A) 1 %; HCT 40.1 % (34.0-46.0); Hypochromasia Marked; Lymphocytes # (A) 1.2 k/uL (1.0-4.8); Lymphocytes % (A) 28 %; MCH 23.7 pg (25.0-35.0); Mean Platelet Volume 6.3; Monocytes # (A) 0.3 k/uL (0-1.0); Monocytes % (A) 6 %; Neutrophils # (A) 2.6 k/uL (1.3-7.7); Neutrophils % (A) 61 %; Platelet Count 144 k/uL (150-450); RBC 5.07 m/uL (3.80-5.40); RDW 13.5 % (11.5-15.5); WBC 4.3 k/uL (3.8-10.6)
[2018-02-19 18:10] LABS: INR 0.9 (<1.2); Partial Thromboplastin Time 22.9 sec (22.0-30.0)
[2018-02-19 18:13] LABS: Creatine Kinase 254 U/L (30-135)
[2018-02-19 18:15] LABS: ALT 34 U/L (9-52); AST 31 U/L (14-36); Albumin 4.1 g/dL (3.5-5.0); Alkaline Phosphatase 52 U/L (38-126); Anion Gap 6 mmol/L; Blood Urea Nitrogen 20 mg/dL (7-17); Calcium 9.7 mg/dL (8.4-10.2); Carbon Dioxide 26 mmol/L (22-30); Chloride 107 mmol/L (98-107); Glucose 100 mg/dL (74-99); Potassium 4.4 mmol/L (3.5-5.1); Sodium 139 mmol/L (137-145); Total Bilirubin 0.3 mg/dL (0.2-1.3); Total Protein 7.2 g/dL (6.3-8.2)
--- NOTE | 2018-02-19 18:19 | XR ---
EXAMINATION TYPE: XR chest 2V DATE OF EXAM: 02/19/2018 COMPARISON: 08/15/2016 HISTORY: Dizziness TECHNIQUE: Frontal and lateral views of the chest are obtained. FINDINGS: There is no heart failure nor confluent pneumonic infiltrate. Costophrenic angles are mamadou r. Bony thorax is intact. IMPRESSION: No active cardiopulmonary disease. No change.
[2018-02-19 18:23] LABS: Creatine Kinase MB <0.2 ng/mL (0.0-2.4)
[2018-02-19 19:00] LABS: Appearance,Urine Clear (Clear); Bacteria,Urine Rare /hpf; Bilirubin,Urine Negative (Negative); Blood,Urine Negative (Negative); Color,Urine Light Yellow; Glucose,Urine (UA) Negative (Negative); Ketones,Urine Negative (Negative); Leukocyte Esterase,Urine Moderate (Negative); Mucus,Urine Rare /hpf; Nitrite,Urine Negative (Negative); Protein,Urine Negative (Negative); RBC,Urine 2 /hpf (0-5); Specific Gravity,Urine 1.015 (1.001-1.035); Squamous Epithelial Cell,Urine 2 /hpf (0-4); Urobilinogen,Urine <2.0 mg/dL (<2.0); WBC,Urine <1 /hpf (0-5)
[2018-02-19] MEDS ORDERED: NITROGLYCERIN SL TABS 0.4 MG TAB SUBLINGUAL PRN (19:15)
[2018-02-19] MEDS ORDERED: SODIUM CHLORIDE 0.9% 1,000 ML IV SCH (19:15)
[2018-02-19] MEDS ORDERED: HEPARIN SOD,PORK IN 0.45% NACL 25,000 UNIT in 0.45% NACL 1 250ML.BAG IV SCH (19:15)
[2018-02-19] MEDS ORDERED: HEPARIN SODIUM,PORCINE 5,000 UNIT/ML 1 ML VIAL IV ONE (19:15)
[2018-02-19 21:12] VITALS: BMI 31.6
[2018-02-19] MEDS ORDERED: LORazepam 0.5 MG TAB PO PRN (21:29)
[2018-02-19] MEDS ORDERED: MELATONIN 5 MG TABLET PO SCH (21:30)
[2018-02-19] MEDS ORDERED: CALCIUM CARBONATE 500 MG CHEWABLE PO PRN (21:45)
[2018-02-19] MEDS ORDERED: ACETAMINOPHEN TAB 500 MG TAB PO PRN (21:46)
[2018-02-19] MEDS ORDERED: ALPRAZolam 0.25 MG TAB PO PRN (21:46)
[2018-02-19] MEDS ORDERED: TEMAZEPAM 15 MG CAP PO PRN (21:46)
--- NOTE | 2018-02-19 22:23 | HP ---
HISTORY AND PHYSICAL I am covering for Dr. Smalls. DATE OF SERVICE: 02/19/2018 CHIEF COMPLAINT: Chest pain. HISTORY OF PRESENT ILLNESS: This 53-year-old woman with a past medical history of multiple medical problems, including GERD surgery, previous history of DJD, history of syncope, bilateral knee pain, being followed by Dr. Smalls in the outpatient setting, was under tremendous stress. The patient's son passed recently apparently. The patient was complaining of chest pain which radiated from the upper part to the lower part which was heavy in character, with some dizziness, nausea and vomiting. The patient came to [facility] and was admitted for further evaluation and treatment. There is no history of any fever, rigor or chills. No history of headache, loss of consciousness, seizures at this time. PAST MEDICAL HISTORY: 1. History of GERD surgery. 2. History of DJD. 3. History of syncope. 4. Bilateral knee pain. 5. DJD. 6. Laparoscopic Anna fundoplication. HOME MEDICATIONS: 1. Vitamin E one p.o. daily. 2. Fish oil 1 p.o. daily. 3. Motrin 400 mg q.6 p.r.n. 4. Tums 500 mg b.i.d. ALLERGIES: NONE. FAMILY HISTORY: No history heart disease or strokes in the family. SOCIAL HISTORY: No history of smoking. No history of alcohol intake. REVIEW OF SYSTEMS: ENT: No diminished hearing. No diminished vision. CARDIOVASCULAR SYSTEM: As mentioned earlier. RESPIRATORY SYSTEM: As mentioned earlier. GI: As mentioned earlier. : No dysuria or retention. NERVOUS SYSTEM: No numbness, weakness. ALLERGY/IMMUNOLOGY: No asthma, hayfever. MUSCULOSKELETAL: As mentioned earlier. HEMATOLOGY/ONCOLOGY: No history of anemia. ENDOCRINE: No history of diabetes, hypothyroidism. CONSTITUTIONAL: As mentioned earlier. DERMATOLOGY: Negative. RHEUMATOLOGY: Negative. PSYCHIATRY: As mentioned earlier. PHYSICAL EXAMINATION: Patient alert and oriented x3. Pulse 58, blood pressure 133/84, respiration 16, temperature 97.4, pulse ox 99% on room air. HEENT: Conjunctivae normal. NECK: No jugular venous distention. CARDIOVASCULAR SYSTEM: S1, S2 muffled. RESPIRATORY SYSTEM: Breath sounds diminished at the bases. No rhonchi. No crackles. ABDOMEN: Soft, non-tender. No mass palpable. LEGS: No edema. No swelling. NERVOUS SYSTEM: Higher functions as mentioned earlier. Moves all 4 limbs. No focal motor or sensory deficit. LYMPHATICS: No lymph node palpable in neck, axillae or groin. SKIN: No ulcer, rash, bleeding. LABS: WBC 4.3, hemoglobin 12. Sodium 139, potassium 4.4. ASSESSMENT: 1. Chest pain, possible unstable angina, possible gastroesophageal reflux disease. 2. History of gastroesophageal reflux disease as well as Anna fundoplication. 3. Degenerative joint disease. 4. History of syncope. 5. History of bilateral knee pain. 6. Social stressors. RECOMMENDATIONS AND DISCUSSION: In this 53-year-old woman who presented with multiple complex medical issues., we will monitor the patient closely, continue the current medications, proton pump inhibitors. Cardiology and surgery consultations. Guarded prognosis because of multiple complex medical issues. Further recommendations to follow. MMODL / IJN: [id number] /
[2018-02-19] MEDS: PANTOPRAZOLE 40 MG/10 ML VIAL IVP SCH (22:24)
[2018-02-19] MEDS: HYDROcodone/APAP 5-325MG 1 EACH TAB PO PRN (22:49)
[2018-02-20 00:09] LABS: Creatine Kinase 239 U/L (30-135)
[2018-02-20 00:23] LABS: Creatine Kinase MB 0.9 ng/mL (0.0-2.4); Troponin I <0.012 ng/mL (0.000-0.034)
[2018-02-20 08:17] VITALS: RESP 16
[2018-02-20 08:21] LABS: Basophils % (A) 0 %; Eosinophils # (A) 0.1 k/uL (0-0.7); Eosinophils % (A) 2 %; HCT 41.4 % (34.0-46.0); HGB 12.2 gm/dL (11.4-16.0); Hypochromasia Marked; Lymphocytes # (A) 1.3 k/uL (1.0-4.8); Lymphocytes % (A) 37 %; MCH 23.8 pg (25.0-35.0); MCHC 29.4 g/dL (31.0-37.0); MCV 80.9 fL (80.0-100.0); Mean Platelet Volume 7.3; Monocytes # (A) 0.2 k/uL (0-1.0); Monocytes % (A) 6 %; Neutrophils # (A) 1.8 k/uL (1.3-7.7); Neutrophils % (A) 52 %; Platelet Count 133 k/uL (150-450); RBC 5.12 m/uL (3.80-5.40); RDW 13.7 % (11.5-15.5); WBC 3.5 k/uL (3.8-10.6)
[2018-02-20 08:26] LABS: Anion Gap 7 mmol/L; Blood Urea Nitrogen 15 mg/dL (7-17); Calcium 9.1 mg/dL (8.4-10.2); Carbon Dioxide 25 mmol/L (22-30); Chloride 112 mmol/L (98-107); Cholesterol 192 mg/dL (<200); Glucose 87 mg/dL (74-99); HDL Cholesterol 57 mg/dL (40-60); LDL Cholesterol,Calculated 130 mg/dL (0-99); Potassium 4.5 mmol/L (3.5-5.1); Sodium 144 mmol/L (137-145); Triglycerides 24 mg/dL (<150)
[2018-02-20 08:42] LABS: Creatine Kinase 218 U/L (30-135)
[2018-02-20 08:56] LABS: Troponin I <0.012 ng/mL (0.000-0.034)
[2018-02-20] MEDS ORDERED: ASPIRIN 325 MG TAB PO SCH (09:00)
--- NOTE | 2018-02-20 10:45 | P.CRDCN ---
History of Present Illness Consult date: 02/20/18 Requesting physician: Keith Alvarez Consult reason: chest pain Chief complaint: Chest pain History of present illness: This is a pleasant 53-year-old -[place] female with no prior documented history of hypertension, no diabetes, no hyperlipidemia, nonsmoker. She does have history of GERD and hiatal hernia for which she underwent surgery approximately [address] Fuentes. Approximately a year ago, she unfortunately lost her son who had a motorcycle accident. His been dealing with a lot of stress recently and has been grieving. She presents to the hospital on this occasion with symptoms of chest discomfort, patient also states that she's had significant dizziness lately. According to the patient if she turns her head one way or the other or bends forward she becomes extremely dizzy and feels like the room is spinning around her. This makes her also quite nauseated although she's had no episodes of any vomiting. Over this past year since her son has passed she does get intermittent chest discomfort, she states that the pain reminds her of what she had prior to her surgery for her hiatal hernia and GERD. Patient was in the hospital on August 2016, she had an echocardiogram with Doppler study performed at that time which revealed an ejection fraction of 55-60%. Chest x-ray this admission did not reveal any active cardiopulmonary disease. EKG shows a normal sinus rhythm with no acute changes. Blood cell count 3.5, hemoglobin 12.2, platelet count 133. Sodium 144 , potassium 4.5, BUN 15, creatinine 0.8. Troponins have been negative 3. Cholesterol 192, LDL 130, HDL 57, triglycerides 24. Blood pressure this morning 107/67 with a heart rate in the 50s, 100% on room air. She is afebrile. The time of my examination this morning, patient is quite teary, has significant tenderness in the mid epigastric area. Past Medical History Past Medical History: GERD/Reflux, Osteoarthritis (OA), Syncope Additional Past Medical History / Comment(s): bilateral knee pain History of Any Multi-Drug Resistant Organisms: None Reported Past Surgical History: Appendectomy, Orthopedic Surgery Additional Past Surgical History / Comment(s): 07/31/15 Laparoscopic Anna Fundoplication. 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, EGDs Past Anesthesia/Blood Transfusion Reactions: No Reported Reaction Smoking Status: Never smoker - Past Family History Mother Family Medical History: No Reported History Medications and Allergies Home Medications Medication Instructions Recorded Confirmed Type Calcium Carbonate [Tums] 500 mg PO BID PRN 02/19/18 02/19/18 History Ibuprofen [Motrin Ib] 400 mg PO Q6H PRN 02/19/18 02/19/18 History [place]-3 Fatty Acids/Fish Oil [Fish 1 cap PO DAILY 02/19/18 02/19/18 History Oil 1,000 mg Softgel] Vitamin E 1 tab PO DAILY 02/19/18 02/19/18 History Allergies Allergy/AdvReac Type Severity Reaction Status Date / Time No Known Allergies Allergy Verified 02/19/18 21:02 Physical Exam Vitals: Vital Signs Temp Pulse Pulse Resp BP BP Pulse Ox 02/20/18 08:00 98.2 F 52 L 16 107/67 100 02/20/18 04:00 98.2 F 59 L 18 118/68 99 02/20/18 03:31 18 02/19/18 23:26 18 02/19/18 23:11 98.4 F 69 18 95/53 99 02/19/18 20:00 97.4 F L 58 L 18 133/84 99 02/19/18 19:49 97.9 F 02/19/18 19:40 60 18 142/96 100 02/19/18 18:14 63 18 131/80 100 02/19/18 17:02 97.9 F 61 16 141/86 100 Intake and Output 02/19/18 02/20/18 02/20/18 22:59 06:59 14:59 Other: # Voids 1 1 Weight 97 kg PHYSICAL EXAMINATION: GENERAL: 53-year-old -[place] female in no acute distress at the time of my examination HEENT: Head is atraumatic, normocephalic. Pupils equal, round. Sclera anicteric. Conjunctiva are clear. Mucous membranes of the mouth are moist. Neck is supple. There is no elevated jugular venous pressure. No carotid bruit is heard. HEART EXAMINATION: Heart S1, S2 normal. No murmur or gallop heard. CHEST EXAMINATION: Lungs are clear to auscultation and precussion. Positive chest wall tenderness is noted on palpation at the mid epigastric area . ABDOMEN: Soft, nontender. Bowel sounds are heard. No organomegaly noted. EXTREMITIES: 2+ peripheral pulses with no evidence of peripheral edema and no calf tenderness noted. NEUROLOGIC patient is awake, alert and oriented 3 . . Results 02/20/18 07:13 02/20/18 07:13 Cardiac Enzymes 02/19/18 02/19/18 02/19/18 Range/Units 17:41 17:41 17:41 AST 31 (14-36) U/L CK-MB (CK-2) <0.2 (0.0-2.4) ng/mL Troponin I <0.012 (0.000-0.034) ng/mL 02/19/18 02/20/18 Range/Units 23:34 07:13 AST (14-36) U/L CK-MB (CK-2) 0.9 1.0 (0.0-2.4) ng/mL Troponin I <0.012 <0.012 (0.000-0.034) ng/mL Coagulation 02/19/18 02/20/18 Range/Units 17:41 07:44 PT 10.0 (9.0-12.0) sec APTT 22.9 51.3 H (22.0-30.0) sec Lipids 02/20/18 Range/Units 07:13 Triglycerides 24 (<150) mg/dL Cholesterol 192 (<200) mg/dL HDL Cholesterol 57 (40-60) mg/dL CBC 02/19/18 02/20/18 Range/Units 17:41 07:13 WBC 4.3 3.5 L (3.8-10.6) k/uL RBC 5.07 5.12 (3.80-5.40) m/uL Hgb 12.0 12.2 (11.4-16.0) gm/dL Hct 40.1 41.4 (34.0-46.0) % Plt Count 144 L 133 L (150-450) k/uL Comprehensive Metabolic Panel 02/19/18 02/20/18 Range/Units 17:41 07:13 Sodium 139 144 (137-145) mmol/L Potassium 4.4 4.5 (3.5-5.1) mmol/L Chloride 107 112 H (98-107) mmol/L Carbon Dioxide 26 25 (22-30) mmol/L BUN 20 H 15 (7-17) mg/dL Creatinine 0.80 0.80 (0.52-1.04) mg/dL Glucose 100 H 87 (74-99) mg/dL Calcium 9.7 9.1 (8.4-10.2) mg/dL AST 31 (14-36) U/L ALT 34 (9-52) U/L Alkaline Phosphatase 52 (38-126) U/L Total Protein 7.2 (6.3-8.2) g/dL Albumin 4.1 (3.5-5.0) g/dL Current Medications Generic Name Dose Route Start Last Admin Trade Name Freq PRN Reason Stop Dose Admin Acetaminophen 500 mg 02/19/18 21:46 02/20/18 02:29 Tylenol Tab PO 500 mg Q6HR PRN Administration Fever and/ or MILD Pain Hydrocodone Bitart/Acetaminophen 1 each 02/19/18 21:46 02/19/18 22:49 [place] 5-325 PO 1 each Q6HR PRN Administration MODERATE Pain Aspirin 325 mg 02/20/18 09:00 Aspirin PO DAILY ADRIANNA Calcium Carbonate/Glycine 500 mg 02/19/18 21:45 Tums PO BID PRN GI UPSET Heparin Sodium/Sodium Chloride 250 mls @ 9.99 mls/hr 02/19/18 19:15 02/19/18 19:37 25,000 unit/ Sodium Chloride IV 10.3 units/kg/hr .Q24H ADRIANNA 9.99 mls/hr Administration Protocol 10.3 UNITS/KG/HR Sodium Chloride 1,000 mls @ 20 mls/hr 02/19/18 19:15 02/19/18 19:35 Saline 0.9% IV 20 mls/hr .Q24H ADRIANNA Administration Lorazepam 0.5 mg 02/19/18 21:29 Ativan PO TID PRN Anxiety Melatonin 5 mg 02/19/18 21:30 02/19/18 21:46 Melatonin PO 5 mg HS ADRIANNA Administration Nitroglycerin 0.4 mg 02/19/18 19:15 Nitrostat SUBLINGUAL Q5M PRN Chest Pain Pantoprazole Sodium 40 mg 02/19/18 22:00 02/19/18 22:24 Protonix IVP 40 mg BID ADRIANNA Administration Temazepam 15 mg 02/19/18 21:46 02/20/18 02:33 Restoril PO 15 mg HS PRN Administration Insomnia Intake and Output 02/19/18 02/20/18 02/20/18 22:59 06:59 14:59 Other: # Voids 1 1 Weight 97 kg 02/20/18 07:13 02/20/18 07:13 EKG Interpretations (text) EKG shows normal sinus rhythm with no acute changes Assessment and Plan Plan: Assessment and plan #1 chest pain, atypical for acute coronary syndrome. Significant chest wall tenderness at the mid epigastric area. She does have history of laparoscopic Anna fundoplication 2 years ago. Troponins are negative 3. EKG shows normal sinus rhythm with no acute changes. #2 dizziness, suggestive of possible vertigo #3 history of GERD #4 significant social stressors Plan We will repeat an echocardiogram with Doppler study. Although the patient's pain is very atypical for acute coronary syndrome we would recommend that she undergo stress testing. Also recommend starting the patient on some Antivert for her symptoms of dizziness suggestive of vertigo. Further recommendations to follow. DNP note has been reviewed, I agree with a documented findings and plan of care. Patient was seen and examined.
[2018-02-20] MEDS ORDERED: MECLIZINE 12.5 MG TAB PO SCH (11:00)
[2018-02-20 12:20] VITALS: BP 115/75; PULSE 56; TEMP 97.7
--- NOTE | 2018-02-20 12:22 | P.GSCN ---
History of Present Illness Consult date: 02/20/18 Reason for Consult: GERD History of present illness: This a 53-year-old female known to myself. Patient has a history of hiatal hernia and reflux. Patient was admitted to the hospital for workup of chest pain. She states that she may be going home today. Her GERD has been a chronic problem. Past Medical History Past Medical History: GERD/Reflux, Osteoarthritis (OA), Syncope Additional Past Medical History / Comment(s): bilateral knee pain History of Any Multi-Drug Resistant Organisms: None Reported Past Surgical History: Appendectomy, Orthopedic Surgery Additional Past Surgical History / Comment(s): 07/31/15 Laparoscopic Anna Fundoplication. 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, EGDs Past Anesthesia/Blood Transfusion Reactions: No Reported Reaction Smoking Status: Never smoker - Past Family History Mother Family Medical History: No Reported History Medications and Allergies Home Medications Medication Instructions Recorded Confirmed Type Calcium Carbonate [Tums] 500 mg PO BID PRN 02/19/18 02/19/18 History Ibuprofen [Motrin Ib] 400 mg PO Q6H PRN 02/19/18 02/19/18 History [place]-3 Fatty Acids/Fish Oil [Fish 1 cap PO DAILY 02/19/18 02/19/18 History Oil 1,000 mg Softgel] Vitamin E 1 tab PO DAILY 02/19/18 02/19/18 History Acetaminophen Tab [Tylenol] 500 mg PO Q6HR PRN tab 02/20/18 Rx Pantoprazole Sodium [Protonix] 40 mg PO BID #60 tablet. 02/20/18 Rx Allergies Allergy/AdvReac Type Severity Reaction Status Date / Time No Known Allergies Allergy Verified 02/19/18 21:02 Surgical - Exam Vital Signs Temp Pulse Resp BP Pulse Ox 97.9 F 61 16 141/86 100 02/19/18 17:02 02/19/18 17:02 02/19/18 17:02 02/19/18 17:02 02/19/18 17:02 - General well developed, well nourished, no distress - Eyes PERRL - ENT normal pinna - Neck no masses - Respiratory normal expansion - Cardiovascular Rhythm: regular - Abdomen Abdomen: soft, non tender Results - Labs 02/20/18 07:13 02/20/18 07:13 Abnormal Lab Results - Last 24 Hours (Table) 02/19/18 02/19/18 02/19/18 Range/Units 17:41 17:41 17:41 WBC (3.8-10.6) k/uL MCV 79.0 L (80.0-100.0) fL MCH 23.7 L (25.0-35.0) pg MCHC 30.0 L (31.0-37.0) g/dL Plt Count 144 L (150-450) k/uL APTT (22.0-30.0) sec Chloride (98-107) mmol/L BUN 20 H (7-17) mg/dL Glucose 100 H (74-99) mg/dL Total Creatine Kinase 254 H (30-135) U/L LDL Cholesterol, Calc (0-99) mg/dL Ur Leukocyte Esterase (Negative) Urine Bacteria (None) /hpf Urine Mucus (None) /hpf 02/19/18 02/19/18 02/20/18 Range/Units 18:43 23:34 07:13 WBC (3.8-10.6) k/uL MCV (80.0-100.0) fL MCH (25.0-35.0) pg MCHC (31.0-37.0) g/dL Plt Count (150-450) k/uL APTT (22.0-30.0) sec Chloride (98-107) mmol/L BUN (7-17) mg/dL Glucose (74-99) mg/dL Total Creatine Kinase 239 H 218 H (30-135) U/L LDL Cholesterol, Calc (0-99) mg/dL Ur Leukocyte Esterase Moderate H (Negative) Urine Bacteria Rare H (None) /hpf Urine Mucus Rare H (None) /hpf 02/20/18 02/20/18 02/20/18 Range/Units 07:13 07:13 07:44 WBC 3.5 L (3.8-10.6) k/uL MCV (80.0-100.0) fL MCH 23.8 L (25.0-35.0) pg MCHC 29.4 L (31.0-37.0) g/dL Plt Count 133 L (150-450) k/uL APTT 51.3 H (22.0-30.0) sec Chloride 112 H (98-107) mmol/L BUN (7-17) mg/dL Glucose (74-99) mg/dL Total Creatine Kinase (30-135) U/L LDL Cholesterol, Calc 130 H (0-99) mg/dL Ur Leukocyte Esterase (Negative) Urine Bacteria (None) /hpf Urine Mucus (None) /hpf Diabetes panel 02/19/18 02/20/18 Range/Units 17:41 07:13 Sodium 139 144 (137-145) mmol/L Potassium 4.4 4.5 (3.5-5.1) mmol/L Chloride 107 112 H (98-107) mmol/L Carbon Dioxide 26 25 (22-30) mmol/L BUN 20 H 15 (7-17) mg/dL Creatinine 0.80 0.80 (0.52-1.04) mg/dL Glucose 100 H 87 (74-99) mg/dL Calcium 9.7 9.1 (8.4-10.2) mg/dL AST 31 (14-36) U/L ALT 34 (9-52) U/L Alkaline Phosphatase 52 (38-126) U/L Total Protein 7.2 (6.3-8.2) g/dL Albumin 4.1 (3.5-5.0) g/dL Triglycerides 24 (<150) mg/dL HDL Cholesterol 57 (40-60) mg/dL Calcium panel 02/19/18 02/20/18 Range/Units 17:41 07:13 Calcium 9.7 9.1 (8.4-10.2) mg/dL Albumin 4.1 (3.5-5.0) g/dL Pituitary panel 02/19/18 02/20/18 Range/Units 17:41 07:13 Sodium 139 144 (137-145) mmol/L Potassium 4.4 4.5 (3.5-5.1) mmol/L Chloride 107 112 H (98-107) mmol/L Carbon Dioxide 26 25 (22-30) mmol/L BUN 20 H 15 (7-17) mg/dL Creatinine 0.80 0.80 (0.52-1.04) mg/dL Glucose 100 H 87 (74-99) mg/dL Calcium 9.7 9.1 (8.4-10.2) mg/dL Adrenal panel 02/19/18 02/20/18 Range/Units 17:41 07:13 Sodium 139 144 (137-145) mmol/L Potassium 4.4 4.5 (3.5-5.1) mmol/L Chloride 107 112 H (98-107) mmol/L Carbon Dioxide 26 25 (22-30) mmol/L BUN 20 H 15 (7-17) mg/dL Creatinine 0.80 0.80 (0.52-1.04) mg/dL Glucose 100 H 87 (74-99) mg/dL Calcium 9.7 9.1 (8.4-10.2) mg/dL Total Bilirubin 0.3 (0.2-1.3) mg/dL AST 31 (14-36) U/L ALT 34 (9-52) U/L Alkaline Phosphatase 52 (38-126) U/L Total Protein 7.2 (6.3-8.2) g/dL Albumin 4.1 (3.5-5.0) g/dL Assessment and Plan Assessment: History of GERD. Patient will undergo esophagram and EGD. This may be done as an inpatient or an outpatient depending on her discharge status. If she is discharged home today. She will see myself in the office next week.
[2018-02-20] MEDS: HYDROcodone/APAP 5-325MG 1 EACH TAB PO PRN (12:28)
[2018-02-20] MEDS: PANTOPRAZOLE 40 MG/10 ML VIAL IVP SCH (12:28)
--- NOTE | 2018-02-21 10:03 | DS ---
DISCHARGE SUMMARY DATE OF SERVICE: 02/20/2018 FINAL DIAGNOSES: 1. Chest pain, possible gastroesophageal reflux disease, myocardial infarction ruled. 2. Gastroesophageal reflux disease as well as Anan fundoplication. 3. Degenerative joint disease. 4. History of syncope. 5. History of bilateral knee pain. 6. Social stressor. HISTORY OF PRESENT ILLNESS: This 53-year-old woman with past medical history of multiple medical problems, presented with chest pain, myocardial infarction ruled out. Cardiology saw the patient and recommended followup. Dr. Porras for surgery also saw the patient and recommended outpatient followup. On exam, vital signs are stable. Cardiovascular: S1, S2. Abdomen soft. Nervous system: No focal deficits. DIET: Cardiac. FOLLOWUP: Follow up with Dr. Smalls in 1-2 days, follow up with Dr. Porras as recommended. Follow up with cardiology as recommended. MEDICATIONS ARE: 1. Tums 500 mg b.i.d. p.r.n. 2. Motrin 400 mg p.r.n. 3. [place]-3 1 p.o. daily. 4. Vitamin E 100 daily. 5. Tylenol 500 mg q.6h p.r.n. 6. Protonix 40 mg p.o. b.i.d. Patient discharged in stable condition with guarded prognosis. MMODL / IJN: [id number] /
--- NOTE | 2018-02-21 17:02 | ECHOF ---
Referral Reason:chest pain MEASUREMENTS -------- HEIGHT: 175.3 cm WEIGHT: 96.6 kg BP: 118/68 RVIDd: 3.0 cm (< 3.3) IVSd: 1.4 cm (0.6 - 1.1) LVIDd: 3.9 cm (3.9 - 5.3) LVPWd: 1.4 cm (0.6 - 1.1) IVSs: 1.6 cm LVIDs: 2.9 cm LVPWs: 1.6 cm LA Diam: 3.8 cm (2.7 - 3.8) LAESV Index (A-L): 30.91 ml/m Ao Diam: 3.0 cm (2.0 - 3.7) AV Cusp: 1.4 cm (1.5 - 2.6) EPSS: 1.0 cm MV E Freeman: 0.68 m/s MV DecT: 236 ms MV A Freeman: 0.70 m/s MV E/A Ratio: 0.98 RAP: 5.00 mmHg RVSP: 19.81 mmHg MV EF SLOPE: 47.50 mm/s (70 - 150) MV EXCURSION: 0.86 cm (> 18.000) FINDINGS -------- Sinus rhythm. This was a technically good study. The left ventricular size is normal. There is moderate concentric left ventricular hypertrophy. O verall left ventricular systolic function is normal with, an EF between 60 - 65 %. The right ventricle is normal in size. LA is midly dilated 29-33ml/m2. The right atrium is normal in size. Aneurysmal Interatrial septum. The aortic valve is trileaflet and appears structurally normal. There is trace to mild mitral regurgitation. Mild tricuspid regurgitation present. Right ventricular systolic pressure is normal at < 35 mmHg. Trace/mild (physiologic) pulmonic regurgitation. The aortic root size is normal. Normal inferior vena cava with normal inspiratory collapse consistent with estimated right atrial pre ssure of 5 mmHg. The inferior vena cava is mildly dilated. There is no pericardial effusion. CONCLUSIONS -------- 1. Sinus rhythm. 2. This was a technically good study. 3. The left ventricular size is normal. 4. There is moderate concentric left ventricular hypertrophy. 5. Overall left ventricular systolic function is normal with, an EF between 60 - 65 %. 6. The right ventricle is normal in size. 7. LA is midly dilated 29-33ml/m2. 8. The right atrium is normal in size. 9. Aneurysmal Interatrial septum. 10. The aortic valve is trileaflet and appears structurally normal. 11. There is trace to mild mitral regurgitation. 12. Mild tricuspid regurgitation present. 13. Right ventricular systolic pressure is normal at < 35 mmHg. 14. Trace/mild (physiologic) pulmonic regurgitation. 15. The aortic root size is normal. 16. Normal inferior vena cava with normal inspiratory collapse consistent with estimated right atrial pressure of 5 mmHg. 17. The inferior vena cava is mildly dilated. 18. There is no pericardial effusion. RACK PUNCHER: KARLO Deluna
== END 2018-02-20 14:56 | disposition home or self-care (01) | DRG 392 ==
LOC: EC 16:48 → OBSVTOIN 19:24 → 1SOBS 19:24 → UNDODISOB 02-20 14:56
PROVIDERS: ADMIT Internal Medicine; ATTEND Internal Medicine
DX: K21.9 Gastro-esophageal reflux disease without esophagitis (principal); F43.29 Adjustment disorder with other symptoms; M19.90 Unspecified osteoarthritis, unspecified site; M25.561 Pain in right knee; M25.562 Pain in left knee; M20.001 Unspecified deformity of right finger(s); R42 Dizziness and giddiness; Z79.899 Other long term (current) drug therapy; Z90.49 Acquired absence of other specified parts of digestive tract
CPT/HCPCS: 36415; 71046; 80048; 80053; 80061; 81001; 82550; 82553; 83735; 84484; 85025; 85610; 85730; 93005; 93306; 96361; 96365; 96375; 96376; 99285

== ENCOUNTER → 2018-03-01 | Outpatient (CLI) | payer BC ==
--- NOTE | 2018-03-01 10:40 | FL ---
EXAMINATION TYPE: FL barium swallow DATE OF EXAM: 03/01/2018 CLINICAL HISTORY: Gastroesophageal reflux, persistent after Anna fundoplication in 2016. TECHNIQUE: A single contrast esophagram is performed utilizing air and barium. A total of 1 minute and 29 seconds of fluoroscopic time was utilized during procedure. 34 fluoroscopic images were saved. COMPARISON: None FINDINGS: There is a new small persistent hiatal hernia seen throughout the examination with distal e sophageal and gastric fundal right lateral small diverticula. There is moderate gastroesophageal refl ux from the hiatal hernia sac to the midthoracic esophagus without Valsalva maneuver. Focal narrowing at the Anna fundoplication site is seen that is nonobstructive. No tertiary contractions are seen on the examination. The patient swallowed contrast without difficulty. IMPRESSION: Small hiatal hernia as well as small gastric and distal esophageal diverticula with narro wing of the prior Anna fundoplication site all contributing to moderate gastroesophageal reflux.
== END | disposition home or self-care (01) ==
LOC: RADFLWHC 09:27
PROVIDERS: ATTEND Surgery
DX: K44.9 Diaphragmatic hernia without obstruction or gangrene (principal); K21.9 Gastro-esophageal reflux disease without esophagitis; K22.2 Esophageal obstruction; Q39.6 Congenital diverticulum of esophagus
CPT/HCPCS: 74220

== ENCOUNTER 2018-03-08 09:55 | Day surgery (SDC) | payer BC ==
[2018-03-05 08:21] VITALS: BMI 31.1
[~2018-03-08 09:55] MED LIST: LACTATED RINGERS 1,000 ML IV SCH
[2018-03-08 10:15] VITALS: TEMP 97.4
[2018-03-08] MEDS ORDERED: LIDOCAINE 1% 20 ML VIAL (10MG/ML) FOR IV START INTRADERMA ONE (10:30)
[2018-03-08] MEDS ORDERED: PROPOFOL 10 MG/ML 20 ML VIAL IV ONE (11:47)
--- NOTE | 2018-03-08 11:49 | P.GSHP ---
History of Present Illness H&P Date: 03/08/18 Chief Complaint: GERD This is a 53-year-old female who has complaints. Dysphagia. Patient presents today for EGD. Past Medical History Past Medical History: GERD/Reflux, Osteoarthritis (OA), Syncope Additional Past Medical History / Comment(s): bilateral knee pain. was obv -02/20/18 for chest pain History of Any Multi-Drug Resistant Organisms: None Reported Past Surgical History: Appendectomy, Hernia Repair, Orthopedic Surgery Additional Past Surgical History / Comment(s): 07/31/15 Laparoscopic Anna Fundoplication. 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, EGDs Past Anesthesia/Blood Transfusion Reactions: No Reported Reaction Smoking Status: Never smoker - Past Family History Mother Family Medical History: No Reported History Medications and Allergies Home Medications Medication Instructions Recorded Confirmed Type Calcium Carbonate [Tums] 500 mg PO BID PRN 02/19/18 03/08/18 History Ibuprofen [Motrin Ib] 400 mg PO Q6H PRN 02/19/18 03/08/18 History [place]-3 Fatty Acids/Fish Oil [Fish 1 cap PO DAILY 02/19/18 03/08/18 History Oil 1,000 mg Softgel] Vitamin E 1 tab PO DAILY 02/19/18 03/08/18 History Acetaminophen Tab [Tylenol] 500 mg PO Q6HR PRN tab 02/20/18 03/08/18 Rx Pantoprazole Sodium [Protonix] 40 mg PO BID #60 tablet. 02/20/18 03/08/18 Rx Allergies Allergy/AdvReac Type Severity Reaction Status Date / Time No Known Allergies Allergy Verified 03/05/18 08:17 Surgical - Exam Vital Signs Temp Pulse Resp BP Pulse Ox 97.4 F L 67 18 136/80 97 03/08/18 10:14 03/08/18 10:14 03/08/18 10:14 03/08/18 10:14 03/08/18 10:14 - General well developed, no distress - Eyes PERRL - ENT normal pinna - Neck no masses - Respiratory normal expansion - Cardiovascular Rhythm: regular - Abdomen Abdomen: soft, non tender Assessment and Plan Assessment: GERD. We'll perform EGD.
--- NOTE | 2018-03-08 12:00 | P.OP ---
Date of Procedure: 03/08/18 Preoperative Diagnosis: GERD Dysphagia Postoperative Diagnosis: Antral gastritis Hiatal hernia Esophagitis Procedure(s) Performed: EGD Anesthesia: MAC Surgeon: Duke Porras Pathology: other (Antrum, esophagus) Condition: stable Disposition: PACU Description of Procedure: The patient's placed on the endoscopy table in the lateral position. She received IV sedation. The gastroscope placed oropharynx passed in the esophagus into the stomach. Scope was then placed through the pylorus. The first and second portion of the duodenum appeared normal. The scope was then brought back the antrum this. Mildly inflamed. A biopsies performed. The scope was then retroflexed the remainder of the stomach appeared normal. There was a hiatal hernia seen. The GE junction was at 38 7 is. The distal esophagus appeared inflamed and a biopsies performed. The proximal esophagus appeared normal. Scope was withdrawn for patient.
[2018-03-08 12:23] VITALS: BP 137/85
[2018-03-08 13:16] VITALS: PULSE 65; RESP 16
== END 2018-03-08 13:03 | disposition home or self-care (01) ==
LOC: ORWHC2ENDO 09:55
PROVIDERS: ATTEND Surgery
DX: K29.50 Unspecified chronic gastritis without bleeding (principal); K21.0 Gastro-esophageal reflux disease with esophagitis; K44.9 Diaphragmatic hernia without obstruction or gangrene; M19.90 Unspecified osteoarthritis, unspecified site; Z79.899 Other long term (current) drug therapy
CPT/HCPCS: 88305; 43239; J2704

== ENCOUNTER 2018-03-22 08:00 | Inpatient (IN) | payer BC ==
[~2018-03-22 08:00] MED LIST changes: +DEXAMETHASONE SOD PHOSPHATE 10 MG/ML 1 ML VIAL IV ONE; +HEPARIN SODIUM,PORCINE 5,000 UNIT/ML 1 ML VIAL SQ ONE; +HYDROmorphone 0.5 MG/0.5 ML SYRINGE IVP PRN; -LACTATED RINGERS 1,000 ML IV SCH; +MIDAZOLAM (PF) 2 MG/2 ML VIAL IV PRN; +ONDANSETRON 4 MG/2 ML VIAL IVP ONE; +SCOPOLAMINE 1.5MG/72HR PATCH TRANSDERM ONE; +ceFAZolin IN SWFI 2 GM/20 ML SYRINGE IVP ONE
[2018-03-22] MEDS ORDERED: LIDOCAINE 1% 20 ML VIAL (10MG/ML) FOR IV START INTRADERMA ONE (09:54)
[2018-03-22] MEDS: LACTATED RINGERS 1,000 ML IV SCH (09:55)
--- NOTE | 2018-03-22 10:22 | P.GSHP ---
History of Present Illness H&P Date: 03/22/18 Chief Complaint: GERD, hiatal hernia This a 53-year-old female who is developed recurrent GERD symptoms due to a recurrent hiatal hernia. Patient is today for laparoscopic repair of recurrent hiatal hernia. Past Medical History Past Medical History: Chest Pain / Angina, GERD/Reflux, Osteoarthritis (OA) Additional Past Medical History / Comment(s): bilateral knee pain History of Any Multi-Drug Resistant Organisms: None Reported Past Surgical History: Appendectomy, Orthopedic Surgery Additional Past Surgical History / Comment(s): 07/31/15 Laparoscopic Anna Fundoplication. 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 Past Anesthesia/Blood Transfusion Reactions: No Reported Reaction Past Psychological History: No Psychological Hx Reported Smoking Status: Never smoker Past Alcohol Use History: None Reported Past Drug Use History: None Reported - Past Family History Mother Family Medical History: No Reported History Medications and Allergies Home Medications Medication Instructions Recorded Confirmed Type Calcium Carbonate [Tums] 500 mg PO BID PRN 02/19/18 03/22/18 History [place]-3 Fatty Acids/Fish Oil [Fish 1 cap PO DAILY 02/19/18 03/22/18 History Oil 1,000 mg Softgel] Acetaminophen Tab [Tylenol] 500 mg PO Q6HR PRN tab 02/20/18 03/22/18 Rx ALPRAZolam [Xanax] 0.5 mg PO DAILY 03/17/18 03/22/18 History Biotin 20,000 mcg PO DAILY 03/17/18 03/22/18 History Melatonin. 1 tab PO HS 03/17/18 03/22/18 History Multivitamins, Thera [Multivitamin 1 tab PO DAILY 03/17/18 03/22/18 History (formulary)] Naproxen(Unknown Dose) 1 tab PO DAILY PRN 03/17/18 03/22/18 History Phentermine HCl 37.5 mg PO AC-BRKFST 03/17/18 03/22/18 History Allergies Allergy/AdvReac Type Severity Reaction Status Date / Time No Known Allergies Allergy Verified 03/22/18 09:46 Surgical - Exam Vital Signs Temp Pulse Resp BP Pulse Ox 97.8 F 72 17 134/78 100 03/22/18 09:50 03/22/18 09:50 03/22/18 09:50 03/22/18 09:50 03/22/18 09:50 - General well developed, well nourished, no distress - Eyes PERRL - ENT normal pinna - Neck no masses - Respiratory normal expansion - Cardiovascular Rhythm: regular - Abdomen Abdomen: soft, non tender Assessment and Plan Assessment: GERD Recurrent hiatal hernia We'll perform laparoscopic hiatal hernia repair.
[2018-03-22] MEDS ORDERED: ROCURONIUM BROMIDE 10 MG/ML 10 ML VIAL IV ONE (10:45)
[2018-03-22] MEDS ORDERED: GLYCOPYRROLATE 0.2 MG/ML 2 ML VIAL ONE (10:45)
[2018-03-22] MEDS ORDERED: LIDOCAINE 1% INJ 10MG/ML (20 ML MDV) ONE (10:45)
[2018-03-22] MEDS ORDERED: HYDROmorphone (PF) 1 MG/ML ONE (10:45)
[2018-03-22] MEDS ORDERED: SUCCINYLCHOLINE CHLORIDE 100 MG/5 ML SYR IV ONE (10:45)
[2018-03-22] MEDS ORDERED: NEOSTIGMINE 1 MG/ML 10 ML VIAL ONE (10:45)
[2018-03-22] MEDS ORDERED: PROPOFOL 10 MG/ML 20 ML VIAL IV ONE (10:45)
[2018-03-22] MEDS ORDERED: KETOROLAC 30 MG/ML 1 ML VIAL ONE (10:45)
[2018-03-22] MEDS ORDERED: fentaNYL (PF) 50 MCG/ML 2 ML AMP ONE (10:45)
[2018-03-22] MEDS ORDERED: MIDAZOLAM 2 MG/2 ML VIAL ONE (10:45)
[2018-03-22] MEDS ORDERED: BUPIVACAIN-EPI 0.5%-1:200,000 30 ML VIAL SQ ONE (11:04)
--- NOTE | 2018-03-22 12:03 | P.OP ---
Date of Procedure: 03/22/18 Preoperative Diagnosis: GERD. Dysphagia Postoperative Diagnosis: GERD Dysphagia Procedure(s) Performed: Laparoscopic repair of recurrent hiatal hernia. Laparoscopic 180 fundoplication Laparoscopic lysis of adhesions Anesthesia: YOLIS Surgeon: Duke Porras Pathology: none sent Condition: stable Disposition: PACU Description of Procedure: The patient's placed on the operative table in supine position. She received Lasix. Her abdomen was prepped and draped in usual sterile fashion. The skin incision sites were anesthetized 1% local Xylocaine. Using 11 blade the skin was incised in the left periumbilical area. Using a 5 mm optical trocar under direct visualization the peritoneal cavity is entered. The abdomen was then insufflated. After adequate insufflation the laparoscope placed back into the peritoneal cavity. Next a 5 mm trochars placed in the left upper quadrant, right upper quadrant, right lateral and left lateral position. The left lateral lobe liver was retracted. There were adhesions to the stomach and the liver and these were lysed using sharp dissection. The fundoplication wrap was taken down using sharp dissection. Care was taken to identify and preserve the gastric wall. The recurrent hiatal hernia was visualized. Using Harmonic scissors and sharp dissection the hiatus was dissected. A complete 360 dissection of the hiatus was performed. The esophagus was mobilized brought back into the peritoneal cavity. The crural defect was repaired using 2-0 Ethibond suture. A 58-Yemeni bougie dilator was placed in the esophagus to ensure that the crura was not too tight. Next 180 fundoplication wrap was performed. This was secured with 2-0 Ethibond suture. There is no evidence of any injury to the stomach or esophagus. The rug clipper scope was then removed. The abdomen was desufflated. The liver retractor was removed. The skin was closed with interrupted 3-0 Monocryl suture. Dermabond was applied. Patient was sent to recovery in stable condition.
[2018-03-22] MEDS ORDERED: LACTATED RINGERS 1,000 ML IV ONE ×2 (12:30)
[2018-03-22] MEDS: METOCLOPRAMIDE 5 MG/ML 2 ML VIAL IVP SCH ×3 (14:16→23:31)
[2018-03-22] MEDS: D5-0.45% NACL WITH KCL 20MEQ/L 1,000 ML IV SCH ×2 (15:03→23:31)
[2018-03-22] MEDS: HYDROmorphone 1 MG/ML 1 ML SYRINGE IVP PRN ×2 (16:08→23:30)
[2018-03-23] MEDS: LACTATED RINGERS 1,000 ML IV SCH (05:40)
[2018-03-23] MEDS: D5-0.45% NACL WITH KCL 20MEQ/L 1,000 ML IV SCH ×2 (05:57→14:01)
[2018-03-23] MEDS: METOCLOPRAMIDE 5 MG/ML 2 ML VIAL IVP SCH ×2 (05:58→11:43)
[2018-03-23 07:40] VITALS: BP 118/66; PULSE 67; RESP 14; TEMP 97.9
--- NOTE | 2018-03-23 08:43 | FL ---
Single contrast esophagram EXAMINATION TYPE: FL esophagus cervic/pharynx DATE OF EXAM: 03/23/2018 8:37 AM COMPARISON: NONE 39 sec fluoro 5 images submitted. CLINICAL HISTORY: Status post Stephane fundoplication The patient ingested contrast without difficulty or delay. Noted are changes of Stephane fundoplicatio n. There is no evidence for leak or obstruction. Small amount of residual contrast within the distal esophagus. IMPRESSION: Post-surgical change of Stephane fundoplication without evidence for leak or obstruction.
[2018-03-23] MEDS ORDERED: ENOXAPARIN 40 MG/0.4 ML SYRINGE SQ SCH (09:00)
[2018-03-23] MEDS: HYDROmorphone 1 MG/ML 1 ML SYRINGE IVP PRN (09:36)
[2018-03-23 11:22] VITALS: BMI 31.0
[2018-03-23] MEDS ORDERED: HYDROcodone/APAP 7.5-325MG 1 EACH TAB PO PRN (11:34)
[2018-03-23] MEDS ORDERED: HYDROmorphone 0.5 MG/0.5 ML SYRINGE IVP PRN (11:36)
--- NOTE | 2018-03-23 14:32 | P.DS ---
Providers Date of admission: 03/22/18 09:27 Expected date of discharge: 03/23/18 Attending physician: Duke Porras Consults: 03/22/18 11:54 Consult Physician Routine Consulting Provider: Jasbir Smalls Consult Reason/Comments: Medical management Do you want consulting provider notified?: Yes Primary care physician: Jasbir Smalls Hospital Course: 53-year-old -Thai female who underwent laparoscopic repair of recurrent hiatal hernia and laparoscopic 180 fundoplication with lysis of adhesions. The patient is doing well postoperatively without any immediate complications. Her pain is tolerable. She is tolerating clear liquid diet. Her vital signs are stable. She is stable for discharge home today. Please see EMR for further hospital course details. DISCHARGE DIAGNOSIS: 1. GERD 2. Recurrent hiatal hernia 3. Status post laparoscopic repair of recurrent hiatal hernia and laparoscopic 180 fundoplication with lysis of adhesions Nurse practitioner note has been reviewed by physician. Signing provider agrees with the documented findings, assessment, and plan of care. Plan - Discharge Summary Discharge Rx Participant: Yes New Discharge Prescriptions: No Action Calcium Carbonate [Tums] 500 mg PO BID PRN PRN Reason: GI UPSET [place]-3 Fatty Acids/Fish Oil [Fish Oil 1,000 mg Softgel] 1 cap PO DAILY Acetaminophen Tab [Tylenol] 500 mg PO Q6HR PRN tab PRN Reason: Fever and/ or MILD Pain Multivitamins, Thera [Multivitamin (formulary)] 1 tab PO DAILY Melatonin. 1 tab PO HS Biotin 20,000 mcg PO DAILY Naproxen(Unknown Dose) 1 tab PO DAILY PRN PRN Reason: Pain ALPRAZolam [Xanax] 0.5 mg PO DAILY Phentermine HCl 37.5 mg PO AC-BRKFST Discharge Medication List Calcium Carbonate [Tums] 500 mg PO BID PRN 02/19/18 [History] [place]-3 Fatty Acids/Fish Oil [Fish Oil 1,000 mg Softgel] 1 cap PO DAILY [History] Acetaminophen Tab [Tylenol] 500 mg PO Q6HR PRN tab 02/20/18 [Rx] ALPRAZolam [Xanax] 0.5 mg PO DAILY 03/17/18 [History] Biotin 20,000 mcg PO DAILY 03/17/18 [History] Melatonin. 1 tab PO HS 03/17/18 [History] Multivitamins, Thera [Multivitamin (formulary)] 1 tab PO DAILY 03/17/18 [History ] Naproxen(Unknown Dose) 1 tab PO DAILY PRN 03/17/18 [History] Phentermine HCl 37.5 mg PO AC-BRKFST 03/17/18 [History]
== END 2018-03-23 15:20 | disposition home or self-care (01) | DRG 328 ==
LOC: 2ORMAIN 09:27 → 4SSUR 12:13
PROVIDERS: ADMIT Surgery; ATTEND Surgery
PROC: 0BQT4ZZ Repair Diaphragm, Percutaneous Endoscopic Approach (ICD-10-PCS; principal; 2018-03-22 10:40)
DX: K44.9 Diaphragmatic hernia without obstruction or gangrene (principal); K21.9 Gastro-esophageal reflux disease without esophagitis; R13.10 Dysphagia, unspecified; M19.90 Unspecified osteoarthritis, unspecified site; Z79.899 Other long term (current) drug therapy; Z90.49 Acquired absence of other specified parts of digestive tract
CPT/HCPCS: 74210

== ENCOUNTER 2018-08-25 17:35 | Emergency (ER) | payer BC ==
[2018-08-25 17:41] VITALS: TEMP 98.3
[2018-08-25] MEDS ORDERED: ONDANSETRON 4 MG/2 ML VIAL IVP STA (18:16)
[2018-08-25] MEDS ORDERED: LORazepam 2 MG/ML INJ IV STA ×2 (18:16→20:10)
[2018-08-25 18:40] LABS: Basophils % (A) 0 %; Eosinophils # (A) 0.1 k/uL (0-0.7); Eosinophils % (A) 2 %; HCT 41.2 % (34.0-46.0); HGB 12.7 gm/dL (11.4-16.0); Hypochromasia Slight; Lymphocytes # (A) 1.2 k/uL (1.0-4.8); Lymphocytes % (A) 28 %; MCH 24.1 pg (25.0-35.0); MCHC 30.8 g/dL (31.0-37.0); MCV 78.3 fL (80.0-100.0); Mean Platelet Volume 6.5; Monocytes # (A) 0.3 k/uL (0-1.0); Monocytes % (A) 7 %; Neutrophils # (A) 2.5 k/uL (1.3-7.7); Neutrophils % (A) 60 %; Platelet Count 201 k/uL (150-450); RBC 5.26 m/uL (3.80-5.40); RDW 14.2 % (11.5-15.5); WBC 4.2 k/uL (3.8-10.6)
[2018-08-25 18:46] LABS: Albumin 4.4 g/dL (3.5-5.0); Calcium 9.9 mg/dL (8.4-10.2); Magnesium 2.1 mg/dL (1.6-2.3); Potassium 4.1 mmol/L (3.5-5.1); Total Bilirubin 0.3 mg/dL (0.2-1.3); Total Protein 7.5 g/dL (6.3-8.2)
[2018-08-25 18:48] LABS: INR 0.9 (<1.2); Partial Thromboplastin Time 22.8 sec (22.0-30.0); Prothrombin Time 9.9 sec (9.0-12.0)
--- NOTE | 2018-08-25 18:50 | XR ---
EXAMINATION TYPE: XR chest 2V DATE OF EXAM: 08/25/2018 COMPARISON: 02/19/2018 HISTORY: Chest tightness TECHNIQUE: Frontal and lateral views of the chest are obtained. FINDINGS: Heart and mediastinum are normal. Lungs are clear. Diaphragm is normal. Bony thorax appear s normal. There are chest leads. IMPRESSION: Normal chest. No adverse change compared to old exam.
--- NOTE | 2018-08-25 19:00 | ED ---
General Adult HPI - General Chief complaint: Chest Pain Stated complaint: dizziness, nausea, heart racing Time Seen by Provider: 08/25/18 17:40 Source: patient, RN notes reviewed Mode of arrival: wheelchair Limitations: no limitations - History of Present Illness Initial comments: This is a 53-year-old female presents emergency department stating that she's been extremely depressed and anxious ever since her son almost 2 years ago. Patient states over the last couple of weeks symptoms of gotten much worse she can't stop crying. Patient states she can't see her grand children from that son because it depresses her so much she can't stop crying. Patient states she has a lot of nausea and she feels lightheaded on occasion. Patient states when she gets like this sometimes she feels like she can't get a full breath and she has to breathe fast. Patient denies any actual chest pressure or pain she says sometimes it does feel little tight but not currently. Patient denies any abdominal pain patient denies any vomiting. Patient denies any recent fever or chills. Patient denies any headache patient denies numbness or weakness. - Related Data Home Medications Medication Instructions Recorded Confirmed Phentermine HCl 37.5 mg PO AC-BRKFST 03/17/18 08/25/18 Celecoxib [CeleBREX] 200 mg PO DAILY 08/25/18 08/25/18 Terbinafine [LamISIL] 250 mg PO DAILY 08/25/18 08/25/18 Allergies Allergy/AdvReac Type Severity Reaction Status Date / Time No Known Allergies Allergy Verified 08/25/18 19:04 Review of Systems ROS Statement: Those systems with pertinent positive or pertinent negative responses have been documented in the HPI. ROS Other: All systems not noted in ROS Statement are negative. Past Medical History Past Medical History: Chest Pain / Angina, GERD/Reflux, Osteoarthritis (OA) Additional Past Medical History / Comment(s): bilateral knee pain History of Any Multi-Drug Resistant Organisms: None Reported Past Surgical History: Appendectomy, Orthopedic Surgery Additional Past Surgical History / Comment(s): 07/31/15 Laparoscopic Anna Fundoplication. 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 Past Anesthesia/Blood Transfusion Reactions: No Reported Reaction Past Psychological History: No Psychological Hx Reported Smoking Status: Never smoker Past Alcohol Use History: None Reported Past Drug Use History: None Reported - Past Family History Mother Family Medical History: No Reported History General Exam - General Exam Comments Initial Comments: GENERAL: Patient is well-developed and well-nourished. Patient is nontoxic and well- hydrated and patient is very anxious and tearful throughout the interview ENT: Neck is soft and supple. No significant lymphadenopathy is noted. Oropharynx is clear. Moist mucous membranes. Neck has full range of motion without eliciting any pain. EYES: The sclera were anicteric and conjunctiva were pink and moist. Extraocular movements were intact and pupils were equal round and reactive to light. Eyelids were unremarkable. PULMONARY: Unlabored respirations. Good breath sounds bilaterally. No audible rales rhonchi or wheezing was noted. CARDIOVASCULAR: There is a regular rate and rhythm without any murmurs gallops or rubs. ABDOMEN: Soft and nontender with normal bowel sounds. SKIN: Skin is clear with no lesions or rashes and otherwise unremarkable. NEUROLOGIC: Patient is alert and oriented x3. Cranial nerves II through XII are grossly intact. Motor and sensory are also intact. Normal speech, volume and content. Symmetrical smile. MUSCULOSKELETAL: Normal extremities with adequate strength and full range of motion. LYMPHATICS: No significant lymphadenopathy is noted PSYCHIATRIC: Patient states she is depressed and very anxious and tearful. Patient is not suicidal Limitations: no limitations Course Vital Signs 08/25/18 08/25/18 17:38 18:41 Temperature 98.3 F Pulse Rate 61 64 Respiratory 16 18 Rate Blood Pressure 146/98 147/91 O2 Sat by Pulse 100 100 Oximetry Medical Decision Making - Medical Decision Making EKG shows normal sinus rhythm at 66 bpm OR interval 170 QRS is under QT interval 396 QTC is 4:15. Patient's EKG shows no ST segment elevation or depression or T wave abnormalities are noted. Patient got 1 of Ativan stated she felt considerably better and she was asking for something for her lower back pain which she always has. Patient states she will follow-up with Dr. Smalls for her anxiety. - Lab Data Result diagrams: 08/25/18 18:01 08/25/18 18:01 Lab Results 08/25/18 08/25/18 08/25/18 Range/Units 18:01 18:01 18:01 WBC 4.2 (3.8-10.6) k/uL RBC 5.26 (3.80-5.40) m/uL Hgb 12.7 (11.4-16.0) gm/dL Hct 41.2 (34.0-46.0) % MCV 78.3 L (80.0-100.0) fL MCH 24.1 L (25.0-35.0) pg MCHC 30.8 L (31.0-37.0) g/dL RDW 14.2 (11.5-15.5) % Plt Count 201 (150-450) k/uL Neutrophils % 60 % Lymphocytes % 28 % Monocytes % 7 % Eosinophils % 2 % Basophils % 0 % Neutrophils # 2.5 (1.3-7.7) k/uL Lymphocytes # 1.2 (1.0-4.8) k/uL Monocytes # 0.3 (0-1.0) k/uL Eosinophils # 0.1 (0-0.7) k/uL Basophils # 0.0 (0-0.2) k/uL Hypochromasia Slight PT 9.9 (9.0-12.0) sec INR 0.9 (<1.2) APTT 22.8 (22.0-30.0) sec Sodium 140 (137-145) mmol/L Potassium 4.1 (3.5-5.1) mmol/L Chloride 105 (98-107) mmol/L Carbon Dioxide 24 (22-30) mmol/L Anion Gap 11 mmol/L BUN 18 H (7-17) mg/dL Creatinine 0.88 (0.52-1.04) mg/dL Est GFR (CKD-EPI)AfAm 86 (>60 ml/min/1.73 sqM) Est GFR (CKD-EPI)NonAf 75 (>60 ml/min/1.73 sqM) Glucose 84 (74-99) mg/dL Calcium 9.9 (8.4-10.2) mg/dL Magnesium 2.1 (1.6-2.3) mg/dL Total Bilirubin 0.3 (0.2-1.3) mg/dL AST 35 (14-36) U/L ALT 32 (9-52) U/L Alkaline Phosphatase 72 (38-126) U/L Troponin I (0.000-0.034) ng/mL Total Protein 7.5 (6.3-8.2) g/dL Albumin 4.4 (3.5-5.0) g/dL 08/25/18 Range/Units 18:01 WBC (3.8-10.6) k/uL RBC (3.80-5.40) m/uL Hgb (11.4-16.0) gm/dL Hct (34.0-46.0) % MCV (80.0-100.0) fL MCH (25.0-35.0) pg MCHC (31.0-37.0) g/dL RDW (11.5-15.5) % Plt Count (150-450) k/uL Neutrophils % % Lymphocytes % % Monocytes % % Eosinophils % % Basophils % % Neutrophils # (1.3-7.7) k/uL Lymphocytes # (1.0-4.8) k/uL Monocytes # (0-1.0) k/uL Eosinophils # (0-0.7) k/uL Basophils # (0-0.2) k/uL Hypochromasia PT (9.0-12.0) sec INR (<1.2) APTT (22.0-30.0) sec Sodium (137-145) mmol/L Potassium (3.5-5.1) mmol/L Chloride (98-107) mmol/L Carbon Dioxide (22-30) mmol/L Anion Gap mmol/L BUN (7-17) mg/dL Creatinine (0.52-1.04) mg/dL Est GFR (CKD-EPI)AfAm (>60 ml/min/1.73 sqM) Est GFR (CKD-EPI)NonAf (>60 ml/min/1.73 sqM) Glucose (74-99) mg/dL Calcium (8.4-10.2) mg/dL Magnesium (1.6-2.3) mg/dL Total Bilirubin (0.2-1.3) mg/dL AST (14-36) U/L ALT (9-52) U/L Alkaline Phosphatase (38-126) U/L Troponin I <0.012 (0.000-0.034) ng/mL Total Protein (6.3-8.2) g/dL Albumin (3.5-5.0) g/dL Disposition Clinical Impression: Anxiety Disposition: HOME SELF-CARE Condition: Good Instructions (If sedation given, give patient instructions): Anxiety (ED) Is patient prescribed a controlled substance at d/c from ED?: No Referrals: Jasbir Smalls MD [Primary Care Provider] - 1-2 days Time of Disposition: 20:10
[2018-08-25] MEDS ORDERED: KETOROLAC 60 MG/2 ML VIAL IVP STA (20:10)
[2018-08-25 20:31] VITALS: BP 151/88; PULSE 78; RESP 15
== END 2018-08-25 20:51 | disposition home or self-care (01) ==
LOC: EC 17:35
DX: F41.9 Anxiety disorder, unspecified (principal); F32.9 Major depressive disorder, single episode, unspecified; R42 Dizziness and giddiness; M54.5 Low back pain; R11.0 Nausea; M19.90 Unspecified osteoarthritis, unspecified site; Z79.899 Other long term (current) drug therapy
CPT/HCPCS: 99285; 96374; 96375 ×2; 96376; 36415; 93005; 80053; 83735; 84484; 85025; 85610; 85730; 71046; J2060; J2405; J1885

== ENCOUNTER → 2018-08-31 | Outpatient (CLI) | payer BC ==
--- NOTE | 2018-09-01 11:09 | MM ---
Reason for exam: screening (asymptomatic). Last mammogram was performed 2 years and 5 months ago. History: Patient is postmenopausal. Taking hormonal contraceptives for 2 years. Physical Findings: A clinical breast exam by your physician is recommended on an annual basis and results should be correlated with mammographic findings. MG Screening Mammo w CAD Bilateral CC and MLO view(s) were taken. Prior study comparison: March 22, 2016, bilateral MG screening mammo w CAD. February 24, 2015, bilateral MG screening mammo w CAD. The breast tissue is heterogeneously dense. This may lower the sensitivity of mammography. There is chronic nodularity in the right breast. No significant changes when compared with prior studies. ASSESSMENT: Benign, BI-RAD 2 RECOMMENDATION: Routine screening mammogram of both breasts in 1 year.
== END | disposition home or self-care (01) ==
LOC: RADMAMWWP 09:07
PROVIDERS: ATTEND Family Medicine
DX: Z12.31 Encounter for screening mammogram for malignant neoplasm of breast (principal)
CPT/HCPCS: 77067

== ENCOUNTER → 2018-11-15 | Outpatient (CLI) | payer BC | END | disposition home or self-care (01) | LOC: LABWHC1 08:38 | PROVIDERS: ATTEND Dermatology | DX: L70.0 Acne vulgaris (principal); B35.1 Tinea unguium; L65.8 Other specified nonscarring hair loss | CPT/HCPCS: 36415; 84702 ==

== ENCOUNTER 2019-01-12 11:24 | Emergency (ER) | payer BC ==
[2019-01-12] MEDS ORDERED: SODIUM CHLORIDE 0.9% 1,000 ML IV STA ×2 (12:14)
[2019-01-12] MEDS ORDERED: ONDANSETRON 4 MG/2 ML VIAL IVP STA (12:14)
[2019-01-12] MEDS ORDERED: KETOROLAC 30 MG/ML 1 ML VIAL IVP STA (12:14)
--- NOTE | 2019-01-12 12:20 | ED ---
Abdominal Pain HPI - General Chief Complaint: Abdominal Pain Stated Complaint: rt sided abd pain Time Seen by Provider: 01/12/19 11:40 Source: patient, RN notes reviewed, old records reviewed Mode of arrival: ambulatory Limitations: no limitations - History of Present Illness Initial Comments: Patient is a 54-year-old female presents emergency department today with chief complaint of generalized abdominal pain since yesterday. Patient reports that she woke up complaining of worsening pain towards the right side. She's had a history of appendectomy when she was younger. Patient states that she's had no changes in urination. She does report constipation. She denies any vomiting but complains of nausea. Patient states that she's had no other complaints. - Related Data Home Medications Medication Instructions Recorded Confirmed Phentermine HCl 37.5 mg PO AC-BRKFST 03/17/18 01/12/19 Biotin 10,000 mcg PO DAILY 01/12/19 01/12/19 Celecoxib [CeleBREX] 200 mg PO DAILY 01/12/19 01/12/19 Cyclobenzaprine [Flexeril] 10 mg PO TID 01/12/19 01/12/19 ISOtretinoin [Claravis] 40 mg PO DAILY 01/12/19 01/12/19 Melatonin Gummy(Unknown Dose) 1 tab PO HS 01/12/19 01/12/19 Multivitamin [Multivitamins Adult 1 tab PO DAILY 01/12/19 01/12/19 Gummies] [place]-3S/Dha/Epa/Fish Oil/D3 [Fish 1 tab PO DAILY 01/12/19 01/12/19 Oil Gummies] Allergies Allergy/AdvReac Type Severity Reaction Status Date / Time No Known Allergies Allergy Verified 01/12/19 16:35 Review of Systems ROS Statement: Those systems with pertinent positive or pertinent negative responses have been documented in the HPI. ROS Other: All systems not noted in ROS Statement are negative. Past Medical History Past Medical History: Chest Pain / Angina, GERD/Reflux, Osteoarthritis (OA) Additional Past Medical History / Comment(s): bilateral knee pain History of Any Multi-Drug Resistant Organisms: None Reported Past Surgical History: Appendectomy, Orthopedic Surgery Additional Past Surgical History / Comment(s): 07/31/15 Laparoscopic Anna Fundoplication. 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 Past Anesthesia/Blood Transfusion Reactions: No Reported Reaction Past Psychological History: No Psychological Hx Reported Smoking Status: Never smoker Past Alcohol Use History: None Reported Past Drug Use History: None Reported - Past Family History Mother Family Medical History: No Reported History General Exam - General Exam Comments Initial Comments: 54-year-old female. Alert and oriented. No distress. Limitations: no limitations General appearance: alert, in no apparent distress Head exam: Present: atraumatic, normocephalic, normal inspection Eye exam: Present: normal appearance, PERRL, EOMI. Absent: scleral icterus, conjunctival injection, periorbital swelling ENT exam: Present: normal exam, mucous membranes moist Neck exam: Present: normal inspection. Absent: tenderness, meningismus, lymphadenopathy Respiratory exam: Present: normal lung sounds bilaterally. Absent: respiratory distress, wheezes, rales, rhonchi, stridor Cardiovascular Exam: Present: regular rate, normal rhythm, normal heart sounds. Absent: systolic murmur, diastolic murmur, rubs, gallop, clicks GI/Abdominal exam: Present: soft, tenderness (RUQ pain), normal bowel sounds. Absent: distended, guarding, rebound, rigid Extremities exam: Present: normal inspection, full ROM, normal capillary refill. Absent: tenderness, pedal edema, joint swelling, calf tenderness Back exam: Present: normal inspection, full ROM Neurological exam: Present: alert, oriented X3, CN II-XII intact Psychiatric exam: Present: normal affect, normal mood Skin exam: Present: warm, dry, intact, normal color Course Vital Signs 01/12/19 01/12/19 01/12/19 11:31 12:32 14:06 Temperature 97.8 F Pulse Rate 66 75 Respiratory 18 16 18 Rate Blood Pressure 158/105 165/107 O2 Sat by Pulse 96 100 Oximetry 01/12/19 16:51 Temperature 97.0 F L Pulse Rate 76 Respiratory 18 Rate Blood Pressure 146/96 O2 Sat by Pulse 98 Oximetry Medical Decision Making - Medical Decision Making This patient's a 54-year-old female, presents emergency room today for right- sided abdominal pain. Symptoms worsening today, but Starting last night. She complianed of intermittent constipation. She notes some right-sided abdominal tenderness, and initial exam to me concern for some guarding. Computed tomography scan was ordered. This showed concern for stone in the gallbladder neck. There is evidence of appendicitis. Motor was reviewed and unremarkable. She is a mildly elevated lipase at 148. Patient's had an ultrasound of her gallbladder. There is no sign of gallbladder wall thickening or retained stones. I discussed the seems the Patient is having dramatic biliary colic. Discussed the Patient follow-up with surgeon that she is quite anxious to go home. Patient states she was quite hungry and wanted to eat multiple times while in emergency department. I discussed that this is appropriate for her to follow-up with her primary care doctor and drops return if there is any fever or chills or worsening complaints. Patient is agreeable to treatment plan. - Lab Data Result diagrams: 01/12/19 11:51 01/12/19 11:51 Lab Results 01/12/19 01/12/19 01/12/19 Range/Units 11:51 11:51 11:51 WBC 4.0 (3.8-10.6) k/uL RBC 5.51 H (3.80-5.40) m/uL Hgb 13.3 (11.4-16.0) gm/dL Hct 43.9 (34.0-46.0) % MCV 79.7 L (80.0-100.0) fL MCH 24.2 L (25.0-35.0) pg MCHC 30.3 L (31.0-37.0) g/dL RDW 13.5 (11.5-15.5) % Plt Count 169 (150-450) k/uL Neutrophils % 61 % Lymphocytes % 26 % Monocytes % 8 % Eosinophils % 1 % Basophils % 1 % Neutrophils # 2.5 (1.3-7.7) k/uL Lymphocytes # 1.1 (1.0-4.8) k/uL Monocytes # 0.3 (0-1.0) k/uL Eosinophils # 0.0 (0-0.7) k/uL Basophils # 0.0 (0-0.2) k/uL Hypochromasia Slight PT 9.8 (9.0-12.0) sec INR 0.9 (<1.2) APTT 22.4 (22.0-30.0) sec Sodium 141 (137-145) mmol/L Potassium 4.3 (3.5-5.1) mmol/L Chloride 105 (98-107) mmol/L Carbon Dioxide 29 (22-30) mmol/L Anion Gap 7 mmol/L BUN 19 H (7-17) mg/dL Creatinine 0.76 (0.52-1.04) mg/dL Est GFR (CKD-EPI)AfAm >90 (>60 ml/min/1.73 sqM) Est GFR (CKD-EPI)NonAf 89 (>60 ml/min/1.73 sqM) Glucose 81 (74-99) mg/dL Calcium 10.7 H (8.4-10.2) mg/dL Total Bilirubin 0.4 (0.2-1.3) mg/dL AST 44 H (14-36) U/L ALT 46 (9-52) U/L Alkaline Phosphatase 60 (38-126) U/L Total Protein 8.0 (6.3-8.2) g/dL Albumin 4.7 (3.5-5.0) g/dL Amylase 158 H (30-110) U/L Lipase 54 (23-300) U/L Urine Color Urine Appearance (Clear) Urine pH (5.0-8.0) Ur Specific [place] (1.001-1.035) Urine Protein (Negative) Urine Glucose (UA) (Negative) Urine Ketones (Negative) Urine Blood (Negative) Urine Nitrite (Negative) Urine Bilirubin (Negative) Urine Urobilinogen (<2.0) mg/dL Ur Leukocyte Esterase (Negative) 01/12/19 Range/Units 11:51 WBC (3.8-10.6) k/uL RBC (3.80-5.40) m/uL Hgb (11.4-16.0) gm/dL Hct (34.0-46.0) % MCV (80.0-100.0) fL MCH (25.0-35.0) pg MCHC (31.0-37.0) g/dL RDW (11.5-15.5) % Plt Count (150-450) k/uL Neutrophils % % Lymphocytes % % Monocytes % % Eosinophils % % Basophils % % Neutrophils # (1.3-7.7) k/uL Lymphocytes # (1.0-4.8) k/uL Monocytes # (0-1.0) k/uL Eosinophils # (0-0.7) k/uL Basophils # (0-0.2) k/uL Hypochromasia PT (9.0-12.0) sec INR (<1.2) APTT (22.0-30.0) sec Sodium (137-145) mmol/L Potassium (3.5-5.1) mmol/L Chloride (98-107) mmol/L Carbon Dioxide (22-30) mmol/L Anion Gap mmol/L BUN (7-17) mg/dL Creatinine (0.52-1.04) mg/dL Est GFR (CKD-EPI)AfAm (>60 ml/min/1.73 sqM) Est GFR (CKD-EPI)NonAf (>60 ml/min/1.73 sqM) Glucose (74-99) mg/dL Calcium (8.4-10.2) mg/dL Total Bilirubin (0.2-1.3) mg/dL AST (14-36) U/L ALT (9-52) U/L Alkaline Phosphatase (38-126) U/L Total Protein (6.3-8.2) g/dL Albumin (3.5-5.0) g/dL Amylase (30-110) U/L Lipase (23-300) U/L Urine Color Yellow Urine Appearance Clear (Clear) Urine pH 7.0 (5.0-8.0) Ur Specific [place] 1.016 (1.001-1.035) Urine Protein Negative (Negative) Urine Glucose (UA) Negative (Negative) Urine Ketones Negative (Negative) Urine Blood Negative (Negative) Urine Nitrite Negative (Negative) Urine Bilirubin Negative (Negative) Urine Urobilinogen <2.0 (<2.0) mg/dL Ur Leukocyte Esterase Negative (Negative) 01/12/19 13:04 EKG shows normal sinus rhythm, right atrial enlargement. Borderline EKG. Ventricular rate of 66 bpm. I will 184 ms. QS duration is 80 ms. QT QTc is 400/419 ms. - Radiology Data Radiology results: report reviewed CT shows possible gallstone at the neck of the gallbladder. Right renal cyst noted. I Dr. Johnson. Ultrasound of the gallbladder shows limited exam. No gallstones seen. No dilated ducts. Right renal cortical cyst. No adverse changes compared old exam. Nonspecific abdomen. Disposition Clinical Impression: Biliary colic Disposition: HOME SELF-CARE Condition: Good Instructions (If sedation given, give patient instructions): Biliary Colic (ED), Abdominal Pain (ED) Additional Instructions: Patient should have Motrin and Tylenol for pain. Avoid fatty greasy foods. Follow-up with surgeon. Return if there is any fevers or worsening pain. Is patient prescribed a controlled substance at d/c from ED?: No Referrals: Jasbir Smalls MD [Primary Care Provider] - 1-2 days Gianna Weiner MD [STAFF PHYSICIAN] - 1-2 days Time of Disposition: 16:49
[2019-01-12 12:38] LABS: Appearance,Urine Clear (Clear); Bilirubin,Urine Negative (Negative); Blood,Urine Negative (Negative); Color,Urine Yellow; Glucose,Urine (UA) Negative (Negative); Ketones,Urine Negative (Negative); Leukocyte Esterase,Urine Negative (Negative); Nitrite,Urine Negative (Negative); Protein,Urine Negative (Negative); Specific Gravity,Urine 1.016 (1.001-1.035); Urobilinogen,Urine <2.0 mg/dL (<2.0)
[2019-01-12 12:39] LABS: Basophils % (A) 1 %; Eosinophils % (A) 1 %; HCT 43.9 % (34.0-46.0); HGB 13.3 gm/dL (11.4-16.0); Hypochromasia Slight; Lymphocytes # (A) 1.1 k/uL (1.0-4.8); Lymphocytes % (A) 26 %; MCH 24.2 pg (25.0-35.0); MCHC 30.3 g/dL (31.0-37.0); MCV 79.7 fL (80.0-100.0); Mean Platelet Volume 6.4; Monocytes # (A) 0.3 k/uL (0-1.0); Monocytes % (A) 8 %; Neutrophils # (A) 2.5 k/uL (1.3-7.7); Neutrophils % (A) 61 %; Platelet Count 169 k/uL (150-450); RBC 5.51 m/uL (3.80-5.40); RDW 13.5 % (11.5-15.5)
[2019-01-12 12:46] LABS: ALT 46 U/L (9-52); AST 44 U/L (14-36); African American GFR (CKD) >90 (>60 ml/min/1.73 sqM); Albumin 4.7 g/dL (3.5-5.0); Alkaline Phosphatase 60 U/L (38-126); Amylase 158 U/L (30-110); Anion Gap 7 mmol/L; Blood Urea Nitrogen 19 mg/dL (7-17); Calcium 10.7 mg/dL (8.4-10.2); Carbon Dioxide 29 mmol/L (22-30); Chloride 105 mmol/L (98-107); Glucose 81 mg/dL (74-99); INR 0.9 (<1.2); Non-African American GFR(CKD) 89 (>60 ml/min/1.73 sqM); Partial Thromboplastin Time 22.4 sec (22.0-30.0); Potassium 4.3 mmol/L (3.5-5.1); Prothrombin Time 9.8 sec (9.0-12.0); Sodium 141 mmol/L (137-145); Total Bilirubin 0.4 mg/dL (0.2-1.3)
--- NOTE | 2019-01-12 13:07 | XR ---
EXAMINATION TYPE: XR KUB DATE OF EXAM: 01/12/2019 COMPARISON: None INDICATION: Abdomen pain lower abdomen TECHNIQUE: Single view abdomen upright view FINDINGS: There is a normal bowel gas pattern. Psoas margins are normal. No organomegaly is present. No free air is evident. No differential air-fluid levels are present. Scoliosis with convexity to the right is evident. IMPRESSION: 1. Nonspecific abdomen.
[2019-01-12 14:07] VITALS: RESP 18
--- NOTE | 2019-01-12 15:23 | CT ---
EXAMINATION TYPE: CT abdomen pelvis w con DATE OF EXAM: 01/12/2019 COMPARISON: None INDICATION: Right lower abdominal pain DLP: 1170 mGycm, Automated exposure control for dose reduction was used. CONTRAST: 100 mL of Isovue 300. Study performed without Oral Contrast TECHNIQUE: Axial images were obtained from above the diaphragm to the pubic rami in the axial plane a t 5 mm thick sections. Reconstructed images are reviewed on the computer in the coronal plane. FINDINGS: Limited CT sections are obtained the lung bases. The lung bases are clear. CT ABDOMEN: Liver: Normal Spleen: Normal Pancreas: Normal Adrenal glands: The adrenal glands are normal. Gallbladder: Small gallstones not excluded from the gallbladder neck. Series 201 image 20 Kidneys: No masses are evident. No hydronephrosis is present. There is a cyst on the anterior right mid to lower pole kidney measuring 1.6 cm and 9 Hounsfield units. Delayed images were obtained thro ugh the kidneys, which remain unremarkable. Aorta: Vascular calcification is within the aorta. Inferior vena cava: Normal. CT PELVIS: Loops of bowel within the abdomen and pelvis are normal. There are loops of bowel which are incom pletely distended or lack oral contrast limiting their evaluation. Appendix: Normal as visualized. Urinary bladder: Normal. Genitourinary structures: Uterus appears unremarkable. Adnexal regions are clear. No free fluid is wi thin the pelvis. Osseous structures: No suspicious lytic or sclerotic lesions. Facet degenerative changes present thro ugh the lower lumbar spine. Some scalloping of the lumbar spine and posterior ulloa may be present. D egenerative disc changes are within the lumbar spine region. IMPRESSIONS: 1. Possible gallstone at the neck of the gallbladder. 2. Right renal cyst.
--- NOTE | 2019-01-12 16:39 | US ---
EXAMINATION TYPE: US gallbladder DATE OF EXAM: 01/12/2019 COMPARISON: CT & US March 21, 2015 CLINICAL HISTORY: pain. Pt states ABD pain EXAM MEASUREMENTS: Liver Length: 14.8 cm Gallbladder Wall: 0.2 cm CBD: 0.4 cm Right Kidney: 9.9 x 4.2 x 4.2 cm Limited exam, pt unable to take breath in and hold it Pancreas: 2mm duct visualized, tail obscured by overlying bowel gas Liver: Limited visualized portions appeared wnl Gallbladder: Unable to visualize possible gallstones seen on CT, pt unable to take breath in and hol d it, difficult to visualize, GB wall not thickened Evidence for sonographic Rajput's sign: Yes CBD: wnl Right Kidney: Cyst mid= 2.1 x 1.4 x 1.4 cm IMPRESSION: Limited exam. No gallstones seen. No dilated ducts. Small right renal cortical cyst. No adverse lares e compared to old exam.
[2019-01-12 16:52] VITALS: BP 146/96; PULSE 76; TEMP 97
== END 2019-01-12 16:57 | disposition home or self-care (01) ==
LOC: EC 11:24
DX: K80.50 Calculus of bile duct without cholangitis or cholecystitis without obstruction (principal); K37 Unspecified appendicitis; R74.8 Abnormal levels of other serum enzymes; I25.2 Old myocardial infarction; M19.90 Unspecified osteoarthritis, unspecified site; K21.9 Gastro-esophageal reflux disease without esophagitis; Z79.899 Other long term (current) drug therapy; Z98.890 Other specified postprocedural states
CPT/HCPCS: 36415; 93005; 80053; 82150; 83690; 85025; 85610; 85730; 81003; 74018; 76705; 74177; 99285; 96374; 96375; 96361 ×4; J2405; J1885; Q9967

== ENCOUNTER 2019-03-10 08:04 | Day surgery (SDC) | payer BC ==
[2019-03-08 11:12] VITALS: BMI 30.2
--- NOTE | 2019-03-09 17:58 | P.GSHP ---
History of Present Illness H&P Date: 03/10/19 CHIEF COMPLAINT: GERD and colon screen HISTORY OF PRESENT ILLNESS: The patient is a 54-year-old female who presents with gastroesophageal reflux disease and need for colon screen. Upper and lower endoscopy were offered for further evaluation and management. PAST MEDICAL HISTORY: Please see list. PAST SURGICAL HISTORY: Please see list. MEDICATIONS: Please see list. ALLERGIES: Please see list. SOCIAL HISTORY: No illicit drug use FAMILY HISTORY: No reports of Crohn disease or ulcerative colitis. REVIEW OF ORGAN SYSTEMS: CONSTITUTIONAL: No reports of fevers or chills. GI: Denies any blood in stools or constipation. PHYSICAL EXAM: VITAL SIGNS: Stable GENERAL: Well-developed pleasant in no acute distress. HEENT: No scleral icterus. Extraocular movements grossly intact. Moist buccal mucosa. NECK: Supple without lymphadenopathy. CHEST: Unlabored respirations. Equal bilateral excursions. CARDIOVASCULAR: Regular rate and rhythm. Distal 2+ pulses. ABDOMEN: Soft, nondistended. MUSCULOSKELETAL: No clubbing, cyanosis, or edema. ASSESSMENT: 1. Gastroesophageal reflux disease 2. Colon screen. PLAN: 1. Recommend proceeding with an upper and lower endoscopy Past Medical History Past Medical History: GERD/Reflux, Osteoarthritis (OA) Additional Past Medical History / Comment(s): states abdominal pain, frequent constipation History of Any Multi-Drug Resistant Organisms: None Reported Past Surgical History: Appendectomy, Orthopedic Surgery Additional Past Surgical History / Comment(s): 07/31/15 Laparoscopic Anna Fun doplication. 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 Past Anesthesia/Blood Transfusion Reactions: No Reported Reaction Past Psychological History: No Psychological Hx Reported Additional Psychological History / Comment(s): . Smoking Status: Never smoker Past Alcohol Use History: None Reported Past Drug Use History: None Reported - Past Family History Mother Family Medical History: No Reported History Medications and Allergies Home Medications Medication Instructions Recorded Confirmed Type Phentermine HCl 37.5 mg PO AC-BRKFST 03/17/18 03/08/19 History Biotin 10,000 mcg PO DAILY 01/12/19 03/08/19 History Melatonin Gummy(Unknown Dose) 1 tab PO HS 01/12/19 03/08/19 History Multivitamin [Multivitamins Adult 1 tab PO DAILY 01/12/19 03/08/19 History Gummies] [place]-3S/Dha/Epa/Fish Oil/D3 [Fish 1 tab PO DAILY 01/12/19 03/08/19 History Oil Gummies] Allergies Allergy/AdvReac Type Severity Reaction Status Date / Time No Known Allergies Allergy Verified 03/08/19 11:08
[~2019-03-10 08:04] MED LIST changes: -DEXAMETHASONE SOD PHOSPHATE 10 MG/ML 1 ML VIAL IV ONE; -HEPARIN SODIUM,PORCINE 5,000 UNIT/ML 1 ML VIAL SQ ONE; -HYDROmorphone 0.5 MG/0.5 ML SYRINGE IVP PRN; +LACTATED RINGERS 1,000 ML IV SCH; +LIDOCAINE 1% 20 ML VIAL (10MG/ML) FOR IV START INTRADERMA PRN; -MIDAZOLAM (PF) 2 MG/2 ML VIAL IV PRN; -ONDANSETRON 4 MG/2 ML VIAL IVP ONE; -SCOPOLAMINE 1.5MG/72HR PATCH TRANSDERM ONE; -ceFAZolin IN SWFI 2 GM/20 ML SYRINGE IVP ONE
[2019-03-10 08:40] VITALS: TEMP 97.6
[2019-03-10] MEDS ORDERED: LIDOCAINE 1% INJ 10MG/ML (20 ML MDV) ONE (08:44)
[2019-03-10] MEDS ORDERED: PROPOFOL 10 MG/ML 20 ML VIAL IV ONE (08:44)
[2019-03-10] MEDS ORDERED: GLYCOPYRROLATE 0.2 MG/ML 2 ML VIAL ONE (08:44)
--- NOTE | 2019-03-10 09:01 | P.PCN ---
Date of Procedure: 03/10/19 Description of Procedure: PREOPERATIVE DIAGNOSIS: Gastroesophageal reflux disease. History of Anna fundoplasty POSTOPERATIVE DIAGNOSIS: Gastroesophageal reflux disease. History of Anna fundoplasty Superficial gastric ulcers, acute gastritis Recurrent diaphragmatic hiatal hernia OPERATION: Esophagogastroduodenoscopy with biopsies along antrum. SURGEON: Gianna Weiner MD ANESTHESIA: MAC. INDICATIONS: The patient is a 54-year-old female who presents with a history of reflux disease. Benefits and risks of the procedure were described. Informed consent was obtained. DESCRIPTION: The patient was brought into the endoscopy suite and laid in the left lateral decubitus position. An Olympus gastroscope was passed along the posterior oropharynx down to the distal esophagus where the squamocolumnar junction was encountered at 36 cm from the incisors. The stomach was entered and no bile reflux was found. Additional findings are listed below. Biopsies with cold forceps were obtained of the antrum. The first through third portion of the duodenum was examined and unremarkable. Retroflexion of the scope confirmed Hill grade 2 lower esophageal valve. The squamocolumnar junction demonstrated LA grade B erosive esophagitis. The stomach was desufflated. The patient tolerated the procedure well. FINDINGS: Squamocolumnar junction 36 cm from the incisors. Diaphragmatic hiatus at 38 cm. Hiatal hernia, 2 cm Hill grade 2 lower esophageal valve. LA grade B erosive esophagitis. No active duodenitis. Acute superficial gastric ulcers and gastritis RECOMMENDATIONS: Proton pump inhibitor for 2 weeks
--- NOTE | 2019-03-10 09:19 | P.PCN ---
Date of Procedure: 03/10/19 Description of Procedure: PREOPERATIVE DIAGNOSIS: Colonoscopy screening, first POSTOPERATIVE DIAGNOSIS: Colonoscopy screening, first Diverticulosis, scattered. OPERATION: Colonoscopy to the ileocecal valve and appendiceal orifice. SURGEON: Gianna Weiner MD. ANESTHESIA: MAC. INDICATIONS: The patient is a 54-year-old female who presents for her first colonoscopy screening. Benefits and risks were described and informed consent was obtained. DESCRIPTION OF PROCEDURE: The patient had undergone Suprep. She had been brought into the operating room and laid in the left lateral decubitus position. After adequate intravenous sedation, the rectum was examined with 2% lidocaine jelly. No external hemorrhoids were encountered. The rectal tone was within normal limits. No lesions were palpated in the rectal vault. An Olympus colonoscope was advanced until the ileocecal valve and appendiceal orifice were clearly viewed. The prep was excellent with clear visualization of the mucosal folds. The scope was removed with visualization of each mucosal fold. Scattered diverticulosis was encountered. No colonic polyps were found. No evidence of focal colitis was found. Retroflexion of the scope demonstrated grade 1 internal hemorrhoids without active bleeding or inflammation. The colon was desufflated. The patient had tolerated the procedure well. Withdrawal time was over 6 minutes. FINDINGS: Aronchick preparation quality scale 1 (1-5) Internal hemorrhoids, grade 1 No external prolapsed hemorrhoids. No arteriovenous malformations. No adenomatous polyps. No focal colitis. Scattered diverticulosis RECOMMENDATIONS: Lower endoscopy in 10 years, 2030 or Cologaurd Plan - Discharge Summary Discharge Rx Participant: No New Discharge Prescriptions: New Omeprazole [PriLOSEC] 40 mg PO DAILY #14 cap No Action Phentermine HCl 37.5 mg PO AC-BRKFST [place]-3S/Dha/Epa/Fish Oil/D3 [Fish Oil Gummies] 1 tab PO DAILY Melatonin Gummy(Unknown Dose) 1 tab PO HS Biotin 10,000 mcg PO DAILY Multivitamin [Multivitamins Adult Gummies] 1 tab PO DAILY Discharge Medication List Phentermine HCl 37.5 mg PO AC-BRKFST 03/17/18 [History] Biotin 10,000 mcg PO DAILY 01/12/19 [History] Melatonin Gummy(Unknown Dose) 1 tab PO HS 01/12/19 [History] Multivitamin [Multivitamins Adult Gummies] 1 tab PO DAILY 01/12/19 [History] [place]-3S/Dha/Epa/Fish Oil/D3 [Fish Oil Gummies] 1 tab PO DAILY 01/12/19 [History] Omeprazole [PriLOSEC] 40 mg PO DAILY #14 cap 03/10/19 [Rx] Follow up Appointment(s)/Referral(s): Gianna Weiner MD [STAFF PHYSICIAN] - 03/22/19 Patient Instructions/Handouts: Peptic Ulcer (DC), Hiatal Hernia (DC), Diverticulosis Diet (GEN), Diverticulosis (DC) Activity/Diet/Wound Care/Special Instructions: Repeat colonoscopy in 10 years, 2030 Discharge Disposition: HOME SELF-CARE
[2019-03-10 09:32] VITALS: PULSE 93
[2019-03-10 10:00] VITALS: BP 126/74; RESP 18
== END 2019-03-10 10:14 | disposition home or self-care (01) ==
LOC: ORWHC2ENDO 08:04
PROVIDERS: ATTEND Surgery Plastic and Reconstructive Surgery
DX: Z12.11 Encounter for screening for malignant neoplasm of colon (principal); K57.90 Diverticulosis of intestine, part unspecified, without perforation or abscess without bleeding; K64.0 First degree hemorrhoids; K29.50 Unspecified chronic gastritis without bleeding; K44.9 Diaphragmatic hernia without obstruction or gangrene; K29.00 Acute gastritis without bleeding; K21.0 Gastro-esophageal reflux disease with esophagitis; M19.90 Unspecified osteoarthritis, unspecified site; Z90.49 Acquired absence of other specified parts of digestive tract; Z98.890 Other specified postprocedural states; Z79.899 Other long term (current) drug therapy; Z89.021 Acquired absence of right finger(s)
CPT/HCPCS: 88305; 43239; J2001; J2704; G0121

== ENCOUNTER 2019-04-25 19:43 | Emergency (ER) | payer BC ==
[2019-04-25] MEDS ORDERED: KETOROLAC 30 MG/ML 1 ML VIAL IVP STA (20:57)
[2019-04-25] MEDS ORDERED: ONDANSETRON 4 MG/2 ML VIAL IVP STA (20:57)
[2019-04-25] MEDS ORDERED: SODIUM CHLORIDE 0.9% 1,000 ML IV ONE (20:57)
--- NOTE | 2019-04-25 21:18 | ED ---
Fever HPI - General Chief Complaint: Fever Stated Complaint: body aches/chills Time Seen by Provider: 04/25/19 20:40 Source: patient, RN notes reviewed, old records reviewed Mode of arrival: ambulatory Limitations: no limitations - History of Present Illness Initial Comments: Patient 4 rolled female presents emergency today with 3 days of fevers chills b josé aches. He complained of back pain. She denies any cough or runny nose. She states that her body just aches. She denies any travel history. She does run a daycare. She denies any history of sick contacts at her daycare. Patient reports that she's had no other significant complaints. - Related Data Home Medications Medication Instructions Recorded Confirmed Phentermine HCl 37.5 mg PO AC-BRKFST 03/17/18 03/10/19 Biotin 10,000 mcg PO DAILY 01/12/19 03/10/19 Melatonin Gummy(Unknown Dose) 1 tab PO HS 01/12/19 03/10/19 Multivitamin [Multivitamins Adult 1 tab PO DAILY 01/12/19 03/10/19 Gummies] [place]-3S/Dha/Epa/Fish Oil/D3 [Fish 1 tab PO DAILY 01/12/19 03/10/19 Oil Gummies] Previous Rx's Medication Instructions Recorded Omeprazole [PriLOSEC] 40 mg PO DAILY #14 cap 03/10/19 Allergies Allergy/AdvReac Type Severity Reaction Status Date / Time No Known Allergies Allergy Verified 04/25/19 19:46 Review of Systems ROS Statement: Those systems with pertinent positive or pertinent negative responses have been documented in the HPI. ROS Other: All systems not noted in ROS Statement are negative. Past Medical History Past Medical History: GERD/Reflux, Osteoarthritis (OA) Additional Past Medical History / Comment(s): states abdominal pain, frequent constipation History of Any Multi-Drug Resistant Organisms: None Reported Past Surgical History: Appendectomy, Orthopedic Surgery Additional Past Surgical History / Comment(s): 07/31/15 Laparoscopic Anna Fundoplication. 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 Past Anesthesia/Blood Transfusion Reactions: No Reported Reaction Past Psychological History: No Psychological Hx Reported Smoking Status: Never smoker Past Alcohol Use History: None Reported Past Drug Use History: None Reported - Past Family History Mother Family Medical History: No Reported History General Exam - General Exam Comments Initial Comments: 54 rolled female. Alert and oriented. No distress. Limitations: no limitations General appearance: alert, in no apparent distress Head exam: Present: atraumatic, normocephalic, normal inspection Eye exam: Present: normal appearance, PERRL, EOMI. Absent: scleral icterus, conjunctival injection, periorbital swelling ENT exam: Present: normal exam, mucous membranes moist Neck exam: Present: normal inspection. Absent: tenderness, meningismus, lymp hadenopathy Respiratory exam: Present: normal lung sounds bilaterally. Absent: respiratory distress, wheezes, rales, rhonchi, stridor Cardiovascular Exam: Present: regular rate, normal rhythm, normal heart sounds. Absent: systolic murmur, diastolic murmur, rubs, gallop, clicks GI/Abdominal exam: Present: soft, normal bowel sounds. Absent: distended, tenderness, guarding, rebound, rigid Extremities exam: Present: normal inspection, full ROM, normal capillary refill. Absent: tenderness, pedal edema, joint swelling, calf tenderness Back exam: Present: normal inspection Neurological exam: Present: alert, oriented X3, CN II-XII intact Psychiatric exam: Present: normal affect, normal mood Skin exam: Present: warm, dry, intact, normal color. Absent: rash Course Vital Signs 04/25/19 04/25/19 04/25/19 19:46 22:06 23:49 Temperature 100.7 F H 100.9 F H 98.9 F Pulse Rate 53 L 90 86 Respiratory 22 18 20 Rate Blood Pressure 142/89 125/55 116/62 O2 Sat by Pulse 100 97 100 Oximetry Medical Decision Making - Medical Decision Making 54-year-old female presents with fever chills body aches for symptoms to 3 days. Clinical concern for viral syndrome. She is given IV fluids, Toradol. She does report she has improvement of her pains and aches and dentures and down. Patient has negative influenza swab. Patient's labwork was reviewed and otherwise unremarkable. Chest x-ray shows atelectasis but no pneumonia. She denies any other significant symptoms besides fever and aches. Discussed that Patient needs follow-up with her primary care doctor. Discussed alternate Motrin and Tylenol. All questions answered. - Lab Data Result diagrams: 04/25/19 21:15 04/25/19 21:15 Lab Results 04/25/19 04/25/19 04/25/19 Range/Units 20:46 21:15 21:15 WBC 9.5 (3.8-10.6) k/uL RBC 5.18 (3.80-5.40) m/uL Hgb 12.5 (11.4-16.0) gm/dL Hct 41.3 (34.0-46.0) % MCV 79.6 L (80.0-100.0) fL MCH 24.1 L (25.0-35.0) pg MCHC 30.3 L (31.0-37.0) g/dL RDW 13.3 (11.5-15.5) % Plt Count 182 (150-450) k/uL Neutrophils % 83 % Lymphocytes % 8 % Monocytes % 5 % Eosinophils % 1 % Basophils % 0 % Neutrophils # 7.9 H (1.3-7.7) k/uL Lymphocytes # 0.8 L (1.0-4.8) k/uL Monocytes # 0.5 (0-1.0) k/uL Eosinophils # 0.1 (0-0.7) k/uL Basophils # 0.0 (0-0.2) k/uL Hypochromasia Moderate Sodium (137-145) mmol/L Potassium (3.5-5.1) mmol/L Chloride (98-107) mmol/L Carbon Dioxide (22-30) mmol/L Anion Gap mmol/L BUN (7-17) mg/dL Creatinine (0.52-1.04) mg/dL Est GFR (CKD-EPI)AfAm (>60 ml/min/1.73 sqM) Est GFR (CKD-EPI)NonAf (>60 ml/min/1.73 sqM) Glucose (74-99) mg/dL Calcium (8.4-10.2) mg/dL AST (14-36) U/L ALT (4-34) U/L Urine Color Yellow Urine Appearance Clear (Clear) Urine pH 6.5 (5.0-8.0) Ur Specific [place] 1.019 (1.001-1.035) Urine Protein Negative (Negative) Urine Glucose (UA) Negative (Negative) Urine Ketones Negative (Negative) Urine Blood Trace H (Negative) Urine Nitrite Negative (Negative) Urine Bilirubin Negative (Negative) Urine Urobilinogen <2.0 (<2.0) mg/dL Ur Leukocyte Esterase Negative (Negative) Urine RBC 3 (0-5) /hpf Urine WBC <1 (0-5) /hpf Ur Squamous Epith Cells 2 (0-4) /hpf Urine Mucus Rare H (None) /hpf Influenza Type A RNA Not Detected (Not Detectd) Influenza Type B (PCR) Not Detected (Not Detectd) 04/25/19 Range/Units 21:15 WBC (3.8-10.6) k/uL RBC (3.80-5.40) m/uL Hgb (11.4-16.0) gm/dL Hct (34.0-46.0) % MCV (80.0-100.0) fL MCH (25.0-35.0) pg MCHC (31.0-37.0) g/dL RDW (11.5-15.5) % Plt Count (150-450) k/uL Neutrophils % % Lymphocytes % % Monocytes % % Eosinophils % % Basophils % % Neutrophils # (1.3-7.7) k/uL Lymphocytes # (1.0-4.8) k/uL Monocytes # (0-1.0) k/uL Eosinophils # (0-0.7) k/uL Basophils # (0-0.2) k/uL Hypochromasia Sodium 134 L (137-145) mmol/L Potassium 5.0 (3.5-5.1) mmol/L Chloride 103 (98-107) mmol/L Carbon Dioxide 21 L (22-30) mmol/L Anion Gap 10 mmol/L BUN 18 H (7-17) mg/dL Creatinine 0.69 (0.52-1.04) mg/dL Est GFR (CKD-EPI)AfAm >90 (>60 ml/min/1.73 sqM) Est GFR (CKD-EPI)NonAf >90 (>60 ml/min/1.73 sqM) Glucose 96 (74-99) mg/dL Calcium 9.6 (8.4-10.2) mg/dL AST 53 H (14-36) U/L ALT 35 H (4-34) U/L Urine Color Urine Appearance (Clear) Urine pH (5.0-8.0) Ur Specific [place] (1.001-1.035) Urine Protein (Negative) Urine Glucose (UA) (Negative) Urine Ketones (Negative) Urine Blood (Negative) Urine Nitrite (Negative) Urine Bilirubin (Negative) Urine Urobilinogen (<2.0) mg/dL Ur Leukocyte Esterase (Negative) Urine RBC (0-5) /hpf Urine WBC (0-5) /hpf Ur Squamous Epith Cells (0-4) /hpf Urine Mucus (None) /hpf Influenza Type A RNA (Not Detectd) Influenza Type B (PCR) (Not Detectd) - Radiology Data Radiology results: report reviewed Mild subsegmental atelectasis in the right lung base is new compared old exam. Normal heart. Disposition Clinical Impression: Myalgia, Fever, Back pain Disposition: HOME SELF-CARE Condition: Good Instructions (If sedation given, give patient instructions): Fever in Adults (ED) Additional Instructions: Alternate Motrin and Tylenol for fever and pain. Follow-up with your primary care physician for reevaluation. Return to the ED if any alarming signs or symptoms occur. Is patient prescribed a controlled substance at d/c from ED?: No Referrals: Jasbir Smalls MD [Primary Care Provider] - 1-2 days Time of Disposition: 23:17
[2019-04-25 21:27] LABS: Basophils % (A) 0 %; Eosinophils # (A) 0.1 k/uL (0-0.7); Eosinophils % (A) 1 %; HCT 41.3 % (34.0-46.0); HGB 12.5 gm/dL (11.4-16.0); Hypochromasia Moderate; Lymphocytes # (A) 0.8 k/uL (1.0-4.8); Lymphocytes % (A) 8 %; MCH 24.1 pg (25.0-35.0); MCHC 30.3 g/dL (31.0-37.0); MCV 79.6 fL (80.0-100.0); Mean Platelet Volume 7.5; Monocytes # (A) 0.5 k/uL (0-1.0); Monocytes % (A) 5 %; Neutrophils # (A) 7.9 k/uL (1.3-7.7); Neutrophils % (A) 83 %; Platelet Count 182 k/uL (150-450); RBC 5.18 m/uL (3.80-5.40); RDW 13.3 % (11.5-15.5); WBC 9.5 k/uL (3.8-10.6)
[2019-04-25 21:30] LABS: Appearance,Urine Clear (Clear); Bilirubin,Urine Negative (Negative); Blood,Urine Trace (Negative); Color,Urine Yellow; Glucose,Urine (UA) Negative (Negative); Ketones,Urine Negative (Negative); Leukocyte Esterase,Urine Negative (Negative); Mucus,Urine Rare /hpf; Nitrite,Urine Negative (Negative); PH, Urine 6.5 (5.0-8.0); Protein,Urine Negative (Negative); RBC,Urine 3 /hpf (0-5); Specific Gravity,Urine 1.019 (1.001-1.035); Squamous Epithelial Cell,Urine 2 /hpf (0-4); Urobilinogen,Urine <2.0 mg/dL (<2.0); WBC,Urine <1 /hpf (0-5)
[2019-04-25 21:37] LABS: ALT 35 U/L (4-34); AST 53 U/L (14-36); African American GFR (CKD) >90 (>60 ml/min/1.73 sqM); Anion Gap 10 mmol/L; Blood Urea Nitrogen 18 mg/dL (7-17); Calcium 9.6 mg/dL (8.4-10.2); Carbon Dioxide 21 mmol/L (22-30); Chloride 103 mmol/L (98-107); Glucose 96 mg/dL (74-99); Non-African American GFR(CKD) >90 (>60 ml/min/1.73 sqM); Sodium 134 mmol/L (137-145)
[2019-04-25] MEDS ORDERED: methylPREDNISolone SOD SUCCI 125 MG/2 ML VIAL IV STA (21:48)
[2019-04-25] MEDS ORDERED: ACETAMINOPHEN TAB 500 MG TAB PO STA (21:48)
--- NOTE | 2019-04-25 23:00 | XR ---
EXAMINATION TYPE: XR chest 2V DATE OF EXAM: 04/25/2019 COMPARISON: 08/25/2018 HISTORY: Chest tightness. Short of breath TECHNIQUE: 2 views FINDINGS: There is some mild atelectasis right lung base. Heart and mediastinum are normal. There is no heart failure. Bony thorax is intact. Pulmonary vascularity is normal. IMPRESSION: Mild subsegmental atelectasis right lung base is new compared to old exam. Normal heart.
[2019-04-25 23:50] VITALS: BP 116/62; PULSE 86; RESP 20; TEMP 98.9
== END 2019-04-25 23:49 | disposition home or self-care (01) ==
LOC: EC 19:43
DX: M79.10 Myalgia, unspecified site (principal); M54.9 Dorsalgia, unspecified; R50.9 Fever, unspecified; J98.11 Atelectasis; Z79.899 Other long term (current) drug therapy
CPT/HCPCS: 36415; 80048; 84450; 84460; 85025; 81001; 87502; 71046; 99284; 96374; 96375 ×2; 96361 ×3; J2930; J2405; J1885

== ENCOUNTER 2019-11-04 15:22 | Observation (INO) | payer BC ==
--- NOTE | 2019-11-04 15:45 | ED ---
Chest Pain HPI - General Chief Complaint: Chest Pain Stated Complaint: AFIB Chest pain Time Seen by Provider: 11/04/19 15:22 Source: patient, EMS, RN notes reviewed Mode of arrival: EMS Limitations: no limitations - History of Present Illness Initial Comments: This is a 54-year-old female who is brought in by EMS from her doctor's office with complaints of palpitations and chest pain. She states she woke up with it this morning. She was evaluated by her doctor found to be in atrial flutter/fibrillation. She states she felt dizzy lightheaded upon waking in the pain this morning felt shaky. Her rate was up to 140s. It apparently was noted be intermittent on monitor. No complaints fevers chills nausea vomiting no shortness breath no other modifying factors at this time. No new medications no changes in any medications no drugs. No alcohol. No history of thyroid disease. She states she has had something like this a long time ago. She also states she's been having more frequent urination. MD Complaint: chest pain, other - Related Data Home Medications Medication Instructions Recorded Confirmed Phentermine HCl 37.5 mg PO AC-BRKFST 03/17/18 11/04/19 Biotin 10,000 mcg PO DAILY 01/12/19 11/04/19 Multivitamin [Multivitamins Adult 1 tab PO DAILY 01/12/19 11/04/19 Gummies] Cholecalciferol [Vitamin D3 (25 1,000 unit PO DAILY 11/04/19 11/04/19 Mcg = 1000 Iu)] Fish Oil/Dha/Epa [Fish Oil 1,200 1 cap PO DAILY 11/04/19 11/04/19 mg Fish Oil] Ibuprofen [Motrin] 600 mg PO AC-TID PRN 11/04/19 11/04/19 Pregabalin [Lyrica] 75 mg PO BID 11/04/19 11/04/19 Vitamin B Complex 1 cap PO DAILY 11/04/19 11/04/19 Vitamin C/Biotin [Hair, Skin and 1 tab PO DAILY 11/04/19 11/04/19 Nails] Allergies Allergy/AdvReac Type Severity Reaction Status Date / Time No Known Allergies Allergy Verified 11/04/19 16:19 Review of Systems ROS Statement: Those systems with pertinent positive or pertinent negative responses have been documented in the HPI. ROS Other: All systems not noted in ROS Statement are negative. EKG Findings - EKG Results: EKG: interpreted by CHASE, sinus rhythm (Sinus rhythm a 75. Interval 164 QRS 86 QT since QTC 358/399 nonspecific septal configuration) Past Medical History Past Medical History: GERD/Reflux, Osteoarthritis (OA) Additional Past Medical History / Comment(s): states abdominal pain, frequent constipation History of Any Multi-Drug Resistant Organisms: None Reported Past Surgical History: Appendectomy, Orthopedic Surgery Additional Past Surgical History / Comment(s): 07/31/15 Laparoscopic Anna Fundoplication. 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 Past Anesthesia/Blood Transfusion Reactions: No Reported Reaction Past Psychological History: No Psychological Hx Reported Past Alcohol Use History: None Reported Past Drug Use History: None Reported - Past Family History Mother Family Medical History: No Reported History General Exam - General Exam Comments Initial Comments: This is a well-developed well-nourished awake alert oriented 3 female Limitations: no limitations General appearance: alert, anxious Head exam: Present: atraumatic, normocephalic, normal inspection Eye exam: Present: normal appearance, PERRL, EOMI. Absent: scleral icterus, conjunctival injection, periorbital swelling ENT exam: Present: normal exam, mucous membranes moist Neck exam: Present: normal inspection. Absent: tenderness, meningismus, lymphadenopathy Respiratory exam: Present: normal lung sounds bilaterally. Absent: respiratory distress, wheezes, rales, rhonchi, stridor Cardiovascular Exam: Present: tachycardia, irregular rhythm. Absent: systolic murmur, diastolic murmur, rubs, gallop, clicks GI/Abdominal exam: Present: soft, normal bowel sounds. Absent: distended, tenderness, guarding, rebound, rigid Extremities exam: Present: normal inspection, full ROM, normal capillary refill. Absent: tenderness, pedal edema, joint swelling, calf tenderness Back exam: Present: normal inspection Neurological exam: Present: alert, oriented X3, CN II-XII intact Psychiatric exam: Present: normal affect, normal mood Skin exam: Present: warm, dry, intact, normal color. Absent: rash Course Vital Signs 11/04/19 11/04/19 11/04/19 15:28 15:36 17:58 Temperature 97.7 F Pulse Rate 86 77 Pulse Rate [ 81 Content Specialist ] Respiratory 18 18 Rate Blood Pressure 142/89 165/87 O2 Sat by Pulse 93 L Oximetry Chest Pain MDM - MDM Imaging shows no acute findings I did reevaluate the patient she did require CT due to the elevated d-dimer which was negative for acute processes. I did discuss findings with the patient family patient be admitted for cardiology evaluation. The case is discussed with Dr. Macias. Disposition Clinical Impression: Chest pain, Paroxysmal atrial fibrillation Disposition: ADMITTED IP TO THIS HOSP Condition: Fair Referrals: Jasbir Smalls MD [Primary Care Provider] - 1-2 days
[2019-11-04 16:09] LABS: Basophils % (A) 0 %; Eosinophils # (A) 0.1 k/uL (0-0.7); Eosinophils % (A) 2 %; HCT 43.1 % (34.0-46.0); HGB 12.9 gm/dL (11.4-16.0); Hypochromasia Moderate; Lymphocytes # (A) 1.2 k/uL (1.0-4.8); Lymphocytes % (A) 26 %; MCH 23.5 pg (25.0-35.0); MCHC 29.9 g/dL (31.0-37.0); MCV 78.6 fL (80.0-100.0); Mean Platelet Volume 6.9; Monocytes # (A) 0.3 k/uL (0-1.0); Monocytes % (A) 6 %; Neutrophils # (A) 2.9 k/uL (1.3-7.7); Neutrophils % (A) 65 %; Platelet Count 156 k/uL (150-450); RBC 5.49 m/uL (3.80-5.40); RDW 13.9 % (11.5-15.5); WBC 4.5 k/uL (3.8-10.6)
[2019-11-04 16:20] LABS: Appearance,Urine Clear (Clear); Bilirubin,Urine Negative (Negative); Blood,Urine Negative (Negative); Color,Urine Colorless; Glucose,Urine (UA) Negative (Negative); Ketones,Urine Negative (Negative); Leukocyte Esterase,Urine Negative (Negative); Nitrite,Urine Negative (Negative); Protein,Urine Negative (Negative); Specific Gravity,Urine 1.004 (1.001-1.035); Urobilinogen,Urine <2.0 mg/dL (<2.0)
--- NOTE | 2019-11-04 16:22 | XR ---
EXAMINATION TYPE: XR chest 2V DATE OF EXAM: 11/04/2019 CLINICAL HISTORY: Chest pain TECHNIQUE: Frontal and lateral views of the chest are obtained. COMPARISON: 04/25/2019 chest radiograph FINDINGS: The cardiomediastinal silhouette is within normal limits for size. Pulmonary vasculature i s normal. There is no focal air space opacity, pleural effusion, or pneumothorax seen. The osseous st ructures are intact. IMPRESSION: No acute cardiopulmonary process.
[2019-11-04 16:29] LABS: Albumin 4.3 g/dL (3.5-5.0); Calcium 9.7 mg/dL (8.4-10.2); Magnesium 2.3 mg/dL (1.6-2.3); Total Bilirubin 0.8 mg/dL (0.2-1.3); Total Protein 7.5 g/dL (6.3-8.2)
[2019-11-04 16:44] LABS: Partial Thromboplastin Time 20.8 sec (22.0-30.0)
[2019-11-04 16:50] LABS: D-Dimer 1.79 mg/L FEU (<0.60)
--- NOTE | 2019-11-04 17:56 | CT ---
EXAMINATION TYPE: CT angio chest DATE OF EXAM: 11/04/2019 COMPARISON: None HISTORY: Chest pain and dizziness CT DLP: 475.2 mGycm Automated exposure control for dose reduction was used. CONTRAST: Performed with IV Contrast, patient injected with 100 mL of Isovue 370. There are 3-D post processed images. The lungs are clear of consolidation. There is no evidence of a pulmonary mass. There is no pleural e ffusion. There are no hilar masses. There is no mediastinal adenopathy. Thoracic aorta is intact. The re is no aneurysm or dissection. There is no evidence of filling defect in the pulmonary arteries. There is enlargement of the spinal canal from T11 through the upper lumbar spine with some concave deformity of the posterior aspect of the vertebral bodies. This could relate to multiple meningoceles. There is no compression fracture. S ternum is intact. The ribs appear intact. IMPRESSION: No evidence of pulmonary embolism. No evidence of acute lung disease. 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
[2019-11-04] MEDS ORDERED: NITROGLYCERIN SL TABS 0.4 MG TAB SUBLINGUAL PRN (19:38)
[2019-11-04] MEDS ORDERED: IBUPROFEN 600 MG TAB PO PRN (19:43)
[2019-11-04] MEDS: SODIUM CHLORIDE 0.9% 1,000 ML IV SCH (21:13)
[2019-11-04] MEDS: PREGABALIN 75 MG CAP PO SCH (21:13)
[2019-11-05 05:26] LABS: Cholesterol 240 mg/dL (<200); HDL Cholesterol 65 mg/dL (40-60); LDL Cholesterol,Calculated 154 mg/dL (0-99); Triglycerides 103 mg/dL (<150)
[2019-11-05] MEDS ORDERED: PHENTERMINE HCL 37.5 MG PO SCH (07:30)
[2019-11-05] MEDS: PREGABALIN 75 MG CAP PO SCH ×2 (08:37→21:51)
[2019-11-05] MEDS: CHOLECALCIFEROL 1,000 UNIT TAB PO SCH (08:37)
[2019-11-05] MEDS: MULTIVITAMINS, THERA 1 EACH TAB PO SCH (08:37)
[2019-11-05] MEDS ORDERED: NON FORMULARY DRUG (Fish Oil/Dha/Epa [Fish Oil 1,200 Mg Fish Oil] 1 EACH Capsule) PO SCH (09:00)
[2019-11-05] MEDS ORDERED: NON FORMULARY DRUG (Vitamin B Complex [Vitamin B Complex] 1 EACH Capsule) PO SCH (09:00)
[2019-11-05] MEDS ORDERED: NON FORMULARY DRUG (Biotin [Biotin] 10,000 MCG Capsule) PO SCH (09:00)
[2019-11-05] MEDS ORDERED: ASPIRIN 325 MG TAB PO SCH (09:00)
[2019-11-05] MEDS ORDERED: NON FORMULARY DRUG (Vitamin C/Biotin [Hair, Skin And Nails] 1 EACH Tab.Chew) PO SCH (09:00)
[2019-11-05] MEDS ORDERED: ASPIRIN 325 MG TAB PO STA (10:08)
[2019-11-05] MEDS: METOPROLOL SUCCINATE (ER) 25 MG TAB.ER.24H PO SCH (10:09)
--- NOTE | 2019-11-05 10:22 | P.CRDCN ---
History of Present Illness Consult date: 11/05/19 History of present illness: CHIEF COMPLAINT: Chest pain HISTORY OF PRESENT ILLNESS: This is a 54-year old female with a past medical history significant for GERD and osteoarthritis. 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 We have been asked to see the patient in consultation for chest pain and atrial fibrillation. Patient examined this morning at the bedside. Patient states she woke up yesterday and was not feeling well. She reports feeling dizzy. She was evaluated by her primary care physician, Dr. Smalls. An EKG was obtained at that time revealing atrial fibrillation. Patient was brought to the emergency room for further evaluation. Patient currently denies shortness of breath. She denies chest pain. She denies any previous history cardiac history. She does report feeling palpitations. DIAGNOSTICS: EKG from PCP office reveals atrial fibrillation. Chest xray no acute cardiopulmonary process. Laboratory data: WBC 4.5. Hemoglobin 12.9. Platelet count 156. D-dimer 1.79. Sodium 141. Potassium 5.0. BUN 15. Creatinine 0.99. Troponin 0.031. 0.012. 0.012. TSH 0.641. Current home cardiac medications include none REVIEW OF SYSTEMS: At the time of my exam: CONSTITUTIONAL: Denies fever or chills. HEENT: Denies blurred vision, vision changes, or eye pain. Denies hemoptysis CARDIOVASCULAR: Denies chest pain, orthopnea, PND. Reports palpitations RESPIRATORY: No shortness of breath. GASTROINTESTINAL: Denies abdominal pain. Denies nausea or vomiting. HEMATOLOGIC: Denies bleeding disorders. GENITOURINARY: Denies any blood in urine. SKIN: Denies pruitis. Denies rash. PHYSICAL EXAM: VITAL SIGNS: Reviewed. GENERAL: Well-developed in no acute distress. HEENT: Head is normocephalic. Pupils are equal, round. Sclerae anicteric. Mucous membranes of the mouth are moist. Neck supple. No JVD or thyromegaly LUNGS: Respirations even and unlabored. Lungs essentially clear to auscultation bilaterally. HEART: Regular rate and rhythm. S1 and S2 heard. ABDOMEN: Soft. Nondistended. Nontender. EXTREMITIES: Normal range of motion. No clubbing or cyanosis. Peripheral pulses intact. No lower extremity edema NEUROLOGIC: Awake and alert. Oriented x 3. ASSESSMENT: New-onset paroxysmal atrial fibrillation with RVR Hyperlipidemia Obesity BMI 41.0 PLAN: Obtain 2-D echo to assess cardiac structure and function Recommend lifestyle modifications for hyperlipidemia. Patient to recheck lipid panel in 3 months. If LDL remains elevated, will consider statin therapy Continue aspirin 325 mg daily Begin Toprol 25 mg daily Further recommendations pending patient's course Nurse practitioner note has been reviewed by physician. Signing provider agrees with the documented findings, assessment, and plan of care. Past Medical History Past Medical History: GERD/Reflux, Osteoarthritis (OA) Additional Past Medical History / Comment(s): states abdominal pain, frequent constipation History of Any Multi-Drug Resistant Organisms: None Reported Past Surgical History: Appendectomy, Orthopedic Surgery Additional Past Surgical History / Comment(s): 07/31/15 Laparoscopic Anna Fundoplication. 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 Past Anesthesia/Blood Transfusion Reactions: No Reported Reaction Past Psychological History: No Psychological Hx Reported Additional Psychological History / Comment(s): . Smoking Status: Never smoker Past Alcohol Use History: None Reported Past Drug Use History: None Reported - Past Family History Mother Family Medical History: No Reported History Medications and Allergies Home Medications Medication Instructions Recorded Confirmed Type Phentermine HCl 37.5 mg PO AC-BRKFST 03/17/18 11/04/19 History Biotin 10,000 mcg PO DAILY 01/12/19 11/04/19 History Multivitamin [Multivitamins Adult 1 tab PO DAILY 01/12/19 11/04/19 History Gummies] Cholecalciferol [Vitamin D3 (25 1,000 unit PO DAILY 11/04/19 11/04/19 History Mcg = 1000 Iu)] Fish Oil/Dha/Epa [Fish Oil 1,200 1 cap PO DAILY 11/04/19 11/04/19 History mg Fish Oil] Ibuprofen [Motrin] 600 mg PO AC-TID PRN 11/04/19 11/04/19 History Pregabalin [Lyrica] 75 mg PO BID 11/04/19 11/04/19 History Vitamin B Complex 1 cap PO DAILY 11/04/19 11/04/19 History Vitamin C/Biotin [Hair, Skin and 1 tab PO DAILY 11/04/19 11/04/19 History Nails] Allergies Allergy/AdvReac Type Severity Reaction Status Date / Time No Known Allergies Allergy Verified 11/04/19 16:19 Physical Exam Vitals: Vital Signs Temp Pulse Pulse Resp BP BP Pulse Ox 11/05/19 07:53 98.5 F 76 16 129/81 100 11/05/19 03:00 98.3 F 74 16 123/75 100 11/04/19 21:00 97.9 F 78 18 121/68 94 L 11/04/19 20:13 97.8 F 72 18 136/84 35 L 11/04/19 17:58 77 18 165/87 11/04/19 15:36 81 11/04/19 15:28 97.7 F 86 18 142/89 93 L Intake and Output 11/04/19 11/05/19 11/05/19 22:59 06:59 14:59 Intake Total 540 Balance 540 Intake: Oral 540 Other: Voiding Method Toilet Toilet # Voids 2 Weight 95.254 kg Results 11/04/19 15:43 11/04/19 15:43 Cardiac Enzymes 11/04/19 11/04/19 11/04/19 Range/Units 15:43 15:43 20:03 AST 50 H (14-36) U/L Troponin I 0.031 <0.012 (0.000-0.034) ng/mL 11/04/19 Range/Units 22:25 AST (14-36) U/L Troponin I <0.012 (0.000-0.034) ng/mL Coagulation 11/04/19 Range/Units 15:43 PT 10.0 (9.0-12.0) sec APTT 20.8 L (22.0-30.0) sec Lipids 11/04/19 Range/Units 15:43 Triglycerides 103 (<150) mg/dL Cholesterol 240 H (<200) mg/dL HDL Cholesterol 65 H (40-60) mg/dL CBC 11/04/19 Range/Units 15:43 WBC 4.5 (3.8-10.6) k/uL RBC 5.49 H (3.80-5.40) m/uL Hgb 12.9 (11.4-16.0) gm/dL Hct 43.1 (34.0-46.0) % Plt Count 156 (150-450) k/uL Comprehensive Metabolic Panel 11/04/19 Range/Units 15:43 Sodium 141 (137-145) mmol/L Potassium 5.0 (3.5-5.1) mmol/L Chloride 109 H (98-107) mmol/L Carbon Dioxide 28 (22-30) mmol/L BUN 15 (7-17) mg/dL Creatinine 0.99 (0.52-1.04) mg/dL Glucose 91 (74-99) mg/dL Calcium 9.7 (8.4-10.2) mg/dL AST 50 H (14-36) U/L ALT 32 (4-34) U/L Alkaline Phosphatase 57 (38-126) U/L Total Protein 7.5 (6.3-8.2) g/dL Albumin 4.3 (3.5-5.0) g/dL Current Medications Generic Name Dose Route Start Last Admin Trade Name Freq PRN Reason Stop Dose Admin Aspirin 325 mg 11/05/19 09:00 11/05/19 08:37 Aspirin 325 Mg Tab PO 325 mg DAILY ADRIANNA Administration Cholecalciferol 1,000 unit 11/05/19 09:00 11/05/19 08:37 Cholecalciferol 1,000 Unit Tab PO 1,000 unit DAILY ADRIANNA Administration Sodium Chloride 1,000 mls @ 20 mls/hr 11/04/19 19:45 11/04/19 21:13 Saline 0.9% IV 20 mls/hr .Q24H ADRIANNA Administration Ibuprofen 600 mg 11/04/19 19:43 Ibuprofen 600 Mg Tab PO AC-TID PRN Pain Multivitamins 1 each 11/05/19 09:00 11/05/19 08:37 Multivitamins, Thera 1 Each Tab PO 1 each DAILY ADRIANNA Administration Nitroglycerin 0.4 mg 11/04/19 19:38 Nitroglycerin Sl Tabs 0.4 Mg Tab SUBLINGUAL Q5M PRN Chest Pain Pregabalin 75 mg 11/04/19 21:00 11/05/19 08:37 Pregabalin 75 Mg Cap PO 75 mg BID ADRIANNA Administration Intake and Output 11/04/19 11/05/19 11/05/19 22:59 06:59 14:59 Intake Total 540 Balance 540 Intake: Oral 540 Other: Voiding Method Toilet Toilet # Voids 2 Weight 95.254 kg 11/04/19 15:43 11/04/19 15:43
--- NOTE | 2019-11-05 13:18 | ECHOF ---
Referral Reason:CP, LV function MEASUREMENTS -------- HEIGHT: 152.4 cm WEIGHT: 95.3 kg BP: RVIDd: 2.7 cm (< 3.3) IVSd: 0.9 cm (0.6 - 1.1) LVIDd: 4.1 cm (3.9 - 5.3) LVPWd: 1.1 cm (0.6 - 1.1) IVSs: 1.6 cm LVIDs: 2.1 cm LVPWs: 1.8 cm LAESV Index (A-L): 22.31 ml/m Ao Diam: 2.5 cm (2.0 - 3.7) AV Cusp: 1.2 cm (1.5 - 2.6) LA Diam: 2.7 cm (2.7 - 3.8) MV E Freeman: 0.46 m/s MV DecT: 149 ms MV A Freeman: 0.55 m/s MV E/A Ratio: 0.84 RAP: 5.00 mmHg RVSP: 14.31 mmHg FINDINGS -------- Undetermined rhythm. This was a technically good study. The left ventricular size is normal. Left ventricular wall thickness is normal. Overall left vent ricular systolic function is normal with, an EF between 55 - 60 %. The diastolic filling pattern is normal for the age of the patient 9.94. The right ventricle is normal in size. The left atrial size is normal. Normal LA size by volume 22+/-6 ml/m2. The right atrial size is normal. Interatrial and interventricular septum intact. The aortic valve is trileaflet and appears structurally normal. The mitral valve is normal. There is trace mitral regurgitation. The tricuspid valve appears structurally normal. Trace tricuspid regurgitation present. Right agustin tricular systolic pressure is normal at < 35 mmHg. There is no pulmonic regurgitation present. The aortic root size is normal. Normal inferior vena cava with normal inspiratory collapse consistent with estimated right atrial pre ssure of 5 mmHg. There is no pericardial effusion. CONCLUSIONS -------- 1. The left ventricular size is normal. 2. Left ventricular wall thickness is normal. 3. Overall left ventricular systolic function is normal with, an EF between 55 - 60 %. 4. The diastolic filling pattern is normal for the age of the patient 9.94 5. There is trace mitral regurgitation. 6. Trace tricuspid regurgitation present. 7. There is no pericardial effusion. ESTATE CONSERVATOR: Kimberly Garcia RDCS
--- NOTE | 2019-11-05 15:10 | P.HPIM ---
History of Present Illness 54-year-old very pleasant female came in with compensative palpitations or chest pressure chest pressure like sensation patient is found to be in atrial fibrillation patient is also comparing of dizziness on and off. Patient symptom s has been going on for on and off for summer some time patient of woke up yesterday feeling bad tired fatigued and found to be in atrial fibrillation. The patient denied any fever chills patient the has been having these symptoms since her son at age 29 about 3 years ago. Patient was very tearful and depressed. Patient denied any shortness of breath presently. Patient was in and out of A. fib and patient was started on metoprolol and patient the is getting an echocardiogram today. Review of Systems REVIEW OF SYSTEMS: CONSTITUTIONAL: No fever, no malaise HEENT: No recent visual problems or hearing problems. Denied any sore throat. CARDIOVASCULAR: No chest pain, orthopnea, PND, no syncope. PULMONARY: No shortness of breath, no cough, no hemoptysis. GASTROINTESTINAL: No diarrhea, no nausea, no vomiting, no abdominal pain. NEUROLOGICAL: No headaches, no weakness, no numbness. HEMATOLOGICAL: Denies any bleeding or petechiae. GENITOURINARY: Denies any burning micturition, frequency, or urgency. MUSCULOSKELETAL/RHEUMATOLOGICAL: Denies any joint pain, swelling, or any muscle pain. ENDOCRINE: Denies any polyuria or polydipsia. The rest of the 14-point review of systems is negative. Past Medical History Past Medical History: GERD/Reflux, Osteoarthritis (OA) Additional Past Medical History / Comment(s): states abdominal pain, frequent constipation History of Any Multi-Drug Resistant Organisms: None Reported Past Surgical History: Appendectomy, Orthopedic Surgery Additional Past Surgical History / Comment(s): 07/31/15 Laparoscopic Anna Fundoplication. 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 Past Anesthesia/Blood Transfusion Reactions: No Reported Reaction Past Psychological History: No Psychological Hx Reported Additional Psychological History / Comment(s): . Smoking Status: Never smoker Past Alcohol Use History: None Reported Past Drug Use History: None Reported - Past Family History Mother Family Medical History: No Reported History Medications and Allergies Home Medications Medication Instructions Recorded Confirmed Type Phentermine HCl 37.5 mg PO AC-BRKFST 03/17/18 11/04/19 History Biotin 10,000 mcg PO DAILY 01/12/19 11/04/19 History Multivitamin [Multivitamins Adult 1 tab PO DAILY 01/12/19 11/04/19 History Gummies] Cholecalciferol [Vitamin D3 (25 1,000 unit PO DAILY 11/04/19 11/04/19 History Mcg = 1000 Iu)] Fish Oil/Dha/Epa [Fish Oil 1,200 1 cap PO DAILY 11/04/19 11/04/19 History mg Fish Oil] Ibuprofen [Motrin] 600 mg PO AC-TID PRN 11/04/19 11/04/19 History Pregabalin [Lyrica] 75 mg PO BID 11/04/19 11/04/19 History Vitamin B Complex 1 cap PO DAILY 11/04/19 11/04/19 History Vitamin C/Biotin [Hair, Skin and 1 tab PO DAILY 11/04/19 11/04/19 History Nails] Allergies Allergy/AdvReac Type Severity Reaction Status Date / Time No Known Allergies Allergy Verified 11/04/19 16:19 Physical Exam Vitals: Vital Signs Temp Pulse Pulse Resp BP BP Pulse Ox 11/05/19 07:53 98.5 F 76 16 129/81 100 11/05/19 03:00 98.3 F 74 16 123/75 100 11/04/19 21:00 97.9 F 78 18 121/68 94 L 11/04/19 20:13 97.8 F 72 18 136/84 35 L 11/04/19 17:58 77 18 165/87 11/04/19 15:36 81 11/04/19 15:28 97.7 F 86 18 142/89 93 L Intake and Output 11/05/19 11/05/19 11/05/19 06:59 14:59 22:59 Intake Total 840 Balance 840 Intake: Intake, IV Titration 120 Amount Sodium Chloride 0.9% 1, 120 000 ml @ 20 mls/hr IV . Q24H [facility] Rx#:[id number] Oral 720 Other: Voiding Method Toilet # Voids 2 3 PHYSICAL EXAMINATION: GENERAL: The patient is alert and oriented x3, not in any acute distress. Well developed, well nourished. HEENT: Pupils are round and equally reacting to light. EOMI. No scleral icterus. No conjunctival pallor. Normocephalic, atraumatic. No pharyngeal erythema. No thyromegaly. CARDIOVASCULAR: S1 and S2 present. No murmurs, rubs, or gallops. PULMONARY: Chest is clear to auscultation, no wheezing or crackles. ABDOMEN: Soft, nontender, nondistended, normoactive bowel sounds. No palpable organomegaly. MUSCULOSKELETAL: No joint swelling or deformity. EXTREMITIES: No cyanosis, clubbing, or pedal edema. NEUROLOGICAL: Gross neurological examination did not reveal any focal deficits. SKIN: No rashes. Results CBC & Chem 7: 11/04/19 15:43 11/04/19 15:43 Labs: Abnormal Lab Results - Last 24 Hours (Table) 11/04/19 11/04/19 11/04/19 Range/Units 15:43 15:43 15:43 RBC 5.49 H (3.80-5.40) m/uL MCV 78.6 L (80.0-100.0) fL MCH 23.5 L (25.0-35.0) pg MCHC 29.9 L (31.0-37.0) g/dL APTT 20.8 L (22.0-30.0) sec D-Dimer 1.79 H (<0.60) mg/L FEU Chloride 109 H (98-107) mmol/L AST 50 H (14-36) U/L Creatine Kinase 235 H (30-135) U/L Cholesterol (<200) mg/dL LDL Cholesterol, Calc (0-99) mg/dL HDL Cholesterol (40-60) mg/dL 11/04/19 Range/Units 15:43 RBC (3.80-5.40) m/uL MCV (80.0-100.0) fL MCH (25.0-35.0) pg MCHC (31.0-37.0) g/dL APTT (22.0-30.0) sec D-Dimer (<0.60) mg/L FEU Chloride (98-107) mmol/L AST (14-36) U/L Creatine Kinase (30-135) U/L Cholesterol 240 H (<200) mg/dL LDL Cholesterol, Calc 154 H (0-99) mg/dL HDL Cholesterol 65 H (40-60) mg/dL Thrombosis Risk Factor Assmnt - Choose All That Apply Each Factor Represents 1 point: Age 41-60 years, Obesity (BMI >25) Thrombosis Risk Factor Assessment Total Risk Factor Score: 2 Thrombosis Risk Factor Assessment Level: Low Risk Assessment and Plan Plan: 1 new-onset atrial fibrillation: Patient is presently rate controlled, patient is in and out of A. fib. On admission patient had rapid and regular rate. Patient was started on beta warren. Patient A. fib and symptoms of fatigue started since her son and whenever she gets anxious and depressed. Patient was started on antidepressant. Can use aspirin patient's chads score is around 0. Echocardiac is being obtained. -Depression and anxiety: Patient will be started on citalopram and the patient will be referred to a psychiatrist. -Mildly elevated LDL, hyperlipidemia: Lisinopril modifications
[2019-11-06] MEDS: SODIUM CHLORIDE 0.9% 1,000 ML IV SCH (01:33)
[2019-11-06 08:03] VITALS: BP 147/71; PULSE 69; RESP 16; TEMP 97.9
[2019-11-06] MEDS: METOPROLOL SUCCINATE (ER) 25 MG TAB.ER.24H PO SCH (08:56)
[2019-11-06] MEDS: CHOLECALCIFEROL 1,000 UNIT TAB PO SCH (08:56)
[2019-11-06] MEDS: MULTIVITAMINS, THERA 1 EACH TAB PO SCH (08:56)
[2019-11-06] MEDS: PREGABALIN 75 MG CAP PO SCH (08:56)
[2019-11-06] MEDS ORDERED: ASPIRIN 325 MG TAB PO SCH (09:00)
[2019-11-06] MEDS ORDERED: CITALOPRAM HYDROBROMIDE 10 MG TAB PO SCH (09:00)
--- NOTE | 2019-11-06 10:11 | P.DS ---
Providers Date of admission: 11/04/19 19:44 Attending physician: Teto Macias Consults: 11/04/19 19:38 Consult Physician Urgent Consulting Provider: Jovani Martin Consult Reason/Comments: Chest pain, paroxysmal atrial fibrillation Do you want consulting provider notified?: Yes Primary care physician: Jasbir Smalls [place] [facility] Course: 54-year-old very pleasant female came in with compensative palpitations or chest pressure chest pressure like sensation patient is found to be in atrial fibrillation patient is also comparing of dizziness on and off. Patient symptoms has been going on for on and off for summer some time patient of woke up yesterday feeling bad tired fatigued and found to be in atrial fibrillation. The patient denied any fever chills patient the has been having these symptoms since her son at age 29 about 3 years ago. Patient was very tearful and depressed. Patient denied any shortness of breath presently. Patient was in and out of A. fib and patient was started on metoprolol and patient the is getting an echocardiogram today. 11/06/2019 Patient was monitored overnight patient heart rate is fairly under control and that echocardiac exam is within normal limits and patient was cleared by cardiology. Patient's chads score is 0 patient will be discharged on 325 mg of aspirin along with the metoprolol sustained release. Patient is on 2 serotonergic medications now patient is on phentermine and the patient and citalopram was added by me for her depression both of which can increase her heart rate patient was made aware of this and advised her to stop phentermine if possible. Patient will be referred to psychiatric because of her depression. PHYSICAL EXAMINATION: GENERAL: The patient is alert and oriented x3, not in any acute distress. Well developed, well nourished. HEENT: Pupils are round and equally reacting to light. EOMI. No scleral icterus. No conjunctival pallor. Normocephalic, atraumatic. No pharyngeal erythema. No thyromegaly. CARDIOVASCULAR: S1 and S2 present. No murmurs, rubs, or gallops. PULMONARY: Chest is clear to auscultation, no wheezing or crackles. ABDOMEN: Soft, nontender, nondistended, normoactive bowel sounds. No palpable organomegaly. MUSCULOSKELETAL: No joint swelling or deformity. EXTREMITIES: No cyanosis, clubbing, or pedal edema. NEUROLOGICAL: Gross neurological examination did not reveal any focal deficits. SKIN: No rashes. -new-onset A. fib depression -Hyperlipidemia: dietary management for hyperlipidemia Patient Condition at Discharge: Fair Plan - Discharge Summary Discharge Rx Participant: No New Discharge Prescriptions: New Aspirin 325 mg PO DAILY #30 tab Citalopram Hydrobromide [CeleXA] 10 mg PO DAILY #30 tab Metoprolol Succinate (ER) [Toprol XL] 25 mg PO DAILY #30 tab.er.24h Continue Phentermine HCl 37.5 mg PO AC-BRKFST Biotin 10,000 mcg PO DAILY Multivitamin [Multivitamins Adult Gummies] 1 tab PO DAILY Vitamin C/Biotin [Hair, Skin and Nails] 1 tab PO DAILY Vitamin B Complex 1 cap PO DAILY Cholecalciferol [Vitamin D3 (25 Mcg = 1000 Iu)] 1,000 unit PO DAILY Pregabalin [Lyrica] 75 mg PO BID Ibuprofen [Motrin] 600 mg PO AC-TID PRN PRN Reason: Pain Fish Oil/Dha/Epa [Fish Oil 1,200 mg Fish Oil] 1 cap PO DAILY Discharge Medication List Phentermine HCl 37.5 mg PO AC-BRKFST 03/17/18 [History] Biotin 10,000 mcg PO DAILY 01/12/19 [History] Multivitamin [Multivitamins Adult Gummies] 1 tab PO DAILY 01/12/19 [History] Cholecalciferol [Vitamin D3 (25 Mcg = 1000 Iu)] 1,000 unit PO DAILY 11/04/19 [History] Fish Oil/Dha/Epa [Fish Oil 1,200 mg Fish Oil] 1 cap PO DAILY 11/04/19 [History] Ibuprofen [Motrin] 600 mg PO AC-TID PRN 11/04/19 [History] Pregabalin [Lyrica] 75 mg PO BID 11/04/19 [History] Vitamin B Complex 1 cap PO DAILY 11/04/19 [History] Vitamin C/Biotin [Hair, Skin and Nails] 1 tab PO DAILY 11/04/19 [History] Aspirin 325 mg PO DAILY #30 tab 11/06/19 [Rx] Citalopram Hydrobromide [CeleXA] 10 mg PO DAILY #30 tab 11/06/19 [Rx] Metoprolol Succinate (ER) [Toprol XL] 25 mg PO DAILY #30 tab.er.24h 11/06/19 [Rx] Follow up Appointment(s)/Referral(s): Jasbir Smalls MD [Primary Care Provider] - 3 Days Jovani Martin MD [STAFF PHYSICIAN] - 1 Week Discharge Disposition: HOME SELF-CARE
--- NOTE | 2019-11-06 11:28 | P.PN ---
Subjective Progress Note Date: 11/06/19 CHIEF COMPLAINT: Chest pain HISTORY OF PRESENT ILLNESS: Patient examined this morning at the bedside. She denies chest pain. Denies shortness of breath. Peguero dizziness has improved. She remains in sinus rhythm. Echocardiogram completed yesterday revealing ejection fraction 55-60%. She is anxious to be discharged home today. PHYSICAL EXAM: VITAL SIGNS: Reviewed. GENERAL: Well-developed in no acute distress. HEENT: Head is normocephalic. Pupils are equal, round. Sclerae anicteric. Mucous membranes of the mouth are moist. Neck supple. No JVD or thyromegaly LUNGS: Respirations even and unlabored. Lungs essentially clear to auscultation bilaterally. HEART: Regular rate and rhythm. S1 and S2 heard. ABDOMEN: Soft. Nondistended. Nontender. EXTREMITIES: Normal range of motion. No clubbing or cyanosis. Peripheral pulses intact. No lower extremity edema NEUROLOGIC: Awake and alert. Oriented x 3. ASSESSMENT: Paroxysmal atrial fibrillation with RVR Hyperlipidemia Obesity BMI 41.0 PLAN: Recommend lifestyle modifications for hyperlipidemia. Patient to recheck lipid panel in 3 months. If LDL remains elevated, will consider statin therapy Continue aspirin and Toprol Patient stable for discharge home from a cardiac standpoint. She is to follow up outpatient with Dr. Martin Nurse practitioner note has been reviewed by physician. Signing provider agrees with the documented findings, assessment, and plan of care. Objective - Vital Signs Vital signs: Vital Signs Temp 97.9 F 11/06/19 07:54 Pulse 69 11/06/19 07:54 Resp 16 11/06/19 07:54 BP 147/71 11/06/19 07:54 Pulse Ox 100 11/06/19 07:54 Intake & Output 11/05/19 11/06/19 11/06/19 18:59 06:59 18:59 Intake Total 840 Balance 840 Intake: Intake, IV Titration 120 Amount Sodium Chloride 0.9% 1, 120 000 ml @ 20 mls/hr IV . Q24H [facility] Rx#:[id number] Oral 720 Other: Voiding Method Toilet Toilet # Voids 3 1 - Labs CBC & Chem 7: 11/04/19 15:43 11/04/19 15:43
== END 2019-11-06 10:51 | disposition home or self-care (01) ==
LOC: EC 15:22 → 3NCARDOBS 19:44
PROVIDERS: ADMIT Internal Medicine; ATTEND Internal Medicine
DX: I48.0 Paroxysmal atrial fibrillation (principal); R07.89 Other chest pain; F32.9 Major depressive disorder, single episode, unspecified; R79.89 Other specified abnormal findings of blood chemistry; I48.92 Unspecified atrial flutter; F41.9 Anxiety disorder, unspecified; R35.0 Frequency of micturition; M19.90 Unspecified osteoarthritis, unspecified site; K21.9 Gastro-esophageal reflux disease without esophagitis; K59.00 Constipation, unspecified; G96.19 Other disorders of meninges, not elsewhere classified; E78.5 Hyperlipidemia, unspecified; E66.9 Obesity, unspecified; Z68.41 Body mass index [BMI] 40.0-44.9, adult; Z79.899 Other long term (current) drug therapy; Z89.021 Acquired absence of right finger(s); Z90.49 Acquired absence of other specified parts of digestive tract
CPT/HCPCS: 93005 ×2; 99285; 36415; 93306; 85379; 83880; 80061; 80053; 84443; 82550; 83735; 84484; 85025; 85610; 85730; 81003; 71046; 71275; G0378 ×3; Q9967

== ENCOUNTER 2021-06-25 13:32 | Observation (INO) | payer BC ==
--- NOTE | 2021-06-25 18:06 | ED ---
GI Bleed HPI - General Chief complaint: GI Bleed Stated complaint: Abd pain, blood in stool Time Seen by Provider: 06/25/21 18:15 Source: patient Mode of arrival: ambulatory Limitations: no limitations - History of Present Illness Initial comments: 56-year-old female with past medical history of reflux, Anna fundoplication presents to the emergency department with rectal bleeding. States that yesterday she started having bright red blood in her stool. She noted it in the toilet and after she wipes. She has some generalized abdominal cramping. No fevers. Denies hematemesis. Denies constipation, diarrhea or melenic stools. No history of peptic ulcer disease. Patient denies to me that she is on blood thinners. Review the patient's chart does report Eliquis as a home medication. No other alleviating, precipitating or modifying factors - Related Data Home Medications Medication Instructions Recorded Confirmed Multivitamin [Multivitamins Adult 1 tab PO DAILY 01/12/19 06/25/21 Gummies] Vitamin C/Biotin [Hair, Skin and 1 tab PO DAILY 11/04/19 06/25/21 Nails Chew] Apixaban [Eliquis] 5 mg PO BID 06/25/21 06/25/21 Cyclobenzaprine [Flexeril] 10 mg PO BID PRN 06/25/21 06/25/21 Flecainide Acetate 100 mg PO BID 06/25/21 06/25/21 Inflavonoid Intensive Care 2 cap PO DAILY 06/25/21 06/25/21 Meclizine [Antivert] 25 mg PO TID PRN 06/25/21 06/25/21 Metoprolol Succinate (ER) [Toprol 50 mg PO DAILY 06/25/21 06/25/21 XL] Pantoprazole Sodium [Protonix] 40 mg PO DAILY 06/25/21 06/25/21 Vitamin B-12 1,000mcg Gummy 1 cap PO DAILY 06/25/21 06/25/21 cycloSPORINE 0.05% OPHTH SOLN 1 applicator BOTH EYES BID 06/25/21 06/25/21 [Restasis] Allergies Allergy/AdvReac Type Severity Reaction Status Date / Time No Known Allergies Allergy Verified 06/25/21 19:22 Review of Systems ROS Statement: Those systems with pertinent positive or pertinent negative responses have been documented in the HPI. ROS Other: All systems not noted in ROS Statement are negative. Past Medical History Past Medical History: GERD/Reflux, Osteoarthritis (OA) Additional Past Medical History / Comment(s): states abdominal pain, frequent constipation History of Any Multi-Drug Resistant Organisms: None Reported Past Surgical History: Appendectomy, Orthopedic Surgery Additional Past Surgical History / Comment(s): 07/31/15 Laparoscopic Anna Fundoplication. 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 Past Anesthesia/Blood Transfusion Reactions: No Reported Reaction Past Psychological History: No Psychological Hx Reported Smoking Status: Never smoker Past Alcohol Use History: None Reported Past Drug Use History: None Reported - Past Family History Mother Family Medical History: No Reported History General Exam Limitations: no limitations General appearance: alert, in no apparent distress Head exam: Present: atraumatic, normocephalic, normal inspection Eye exam: Present: normal appearance, PERRL, EOMI. Absent: scleral icterus, conjunctival injection, periorbital swelling ENT exam: Present: normal exam, mucous membranes moist Neck exam: Present: normal inspection. Absent: tenderness, meningismus, lymphadenopathy Respiratory exam: Present: normal lung sounds bilaterally. Absent: respiratory distress, wheezes, rales, rhonchi, stridor Cardiovascular Exam: Present: regular rate, normal rhythm, normal heart sounds. Absent: systolic murmur, diastolic murmur, rubs, gallop, clicks GI/Abdominal exam: Present: soft, normal bowel sounds. Absent: distended, tenderness, guarding, rebound, rigid Rectal exam: Present: normal inspection, normal rectal tone, heme (+) stool, other (brown stool). Absent: black stool, bloody stool, hemorrhoids, mass Extremities exam: Present: normal inspection, full ROM, normal capillary refill. Absent: tenderness, pedal edema, joint swelling, calf tenderness Back exam: Present: normal inspection Neurological exam: Present: alert, oriented X3, CN II-XII intact Psychiatric exam: Present: normal affect, normal mood Skin exam: Present: warm, dry, intact, normal color. Absent: rash Course Vital Signs 06/25/21 06/25/21 06/25/21 13:42 19:46 22:24 Temperature 98.6 F Pulse Rate 78 75 60 Pulse Rate [ Pulse Oximetery ] Respiratory 18 18 18 Rate Blood Pressure 121/79 112/65 147/86 Blood Pressure [Right Arm] O2 Sat by Pulse 99 97 100 Oximetry 06/25/21 22:46 Temperature Pulse Rate Pulse Rate [ 57 L Pulse Oximetery ] Respiratory 18 Rate Blood Pressure Blood Pressure 158/97 [Right Arm] O2 Sat by Pulse 100 Oximetry Medical Decision Making - Medical Decision Making Upon arrival patient is placed in room 2. A thorough history and physical exam was performed. Rectal exam is performed which does demonstrate a trace amount of brown stool. Laboratory studies are conducted which demonstrated a hemoglobin of 13.7. Occult is positive. CT of the abdomen and pelvis does not demonstrate reason for rectal bleed. Called and spoke with Dr. Porras who agreed to consult on the patient. Spoke with Dr. Gonzalez who agreed to admit the patient. Patient remained in hemodynamically stable condition awaiting a bed on the floor - Lab Data Result diagrams: 06/26/21 05:26 06/26/21 05:26 Lab Results 06/25/21 06/25/21 06/25/21 Range/Units 18:13 18:13 18:13 WBC 4.7 (3.8-10.6) k/uL RBC 5.48 H (3.80-5.40) m/uL Hgb 13.4 (11.4-16.0) gm/dL Hct 45.5 (34.0-46.0) % MCV 83.1 (80.0-100.0) fL MCH 24.5 L (25.0-35.0) pg MCHC 29.5 L (31.0-37.0) g/dL RDW 14.1 (11.5-15.5) % Plt Count 187 (150-450) k/uL MPV 7.3 Neutrophils % 68 % Lymphocytes % 22 % Monocytes % 6 % Eosinophils % 2 % Basophils % 0 % Neutrophils # 3.2 (1.3-7.7) k/uL Lymphocytes # 1.0 (1.0-4.8) k/uL Monocytes # 0.3 (0-1.0) k/uL Eosinophils # 0.1 (0-0.7) k/uL Basophils # 0.0 (0-0.2) k/uL Hypochromasia Marked PT 10.6 (9.0-12.0) sec INR 1.0 (<1.2) Sodium 138 (137-145) mmol/L Potassium 4.9 (3.5-5.1) mmol/L Chloride 105 (98-107) mmol/L Carbon Dioxide 27 (22-30) mmol/L Anion Gap 6 mmol/L BUN 23 H (7-17) mg/dL Creatinine 0.83 (0.52-1.04) mg/dL Est GFR (CKD-EPI)AfAm >90 (>60 ml/min/1.73 sqM) Est GFR (CKD-EPI)NonAf 78 (>60 ml/min/1.73 sqM) Glucose 101 H (74-99) mg/dL Calcium 9.3 (8.4-10.2) mg/dL Urine Color Urine Appearance (Clear) Urine pH (5.0-8.0) Ur Specific Ada (1.001-1.035) Urine Protein (Negative) Urine Glucose (UA) (Negative) Urine Ketones (Negative) Urine Blood (Negative) Urine Nitrite (Negative) Urine Bilirubin (Negative) Urine Urobilinogen (<2.0) mg/dL Ur Leukocyte Esterase (Negative) Urine RBC (0-5) /hpf Ur Squamous Epith Cells (0-4) /hpf Urine Mucus (None) /hpf Stool Occult Blood (Negative) 06/25/21 06/25/21 Range/Units 18:21 18:24 WBC (3.8-10.6) k/uL RBC (3.80-5.40) m/uL Hgb (11.4-16.0) gm/dL Hct (34.0-46.0) % MCV (80.0-100.0) fL MCH (25.0-35.0) pg MCHC (31.0-37.0) g/dL RDW (11.5-15.5) % Plt Count (150-450) k/uL MPV Neutrophils % % Lymphocytes % % Monocytes % % Eosinophils % % Basophils % % Neutrophils # (1.3-7.7) k/uL Lymphocytes # (1.0-4.8) k/uL Monocytes # (0-1.0) k/uL Eosinophils # (0-0.7) k/uL Basophils # (0-0.2) k/uL Hypochromasia PT (9.0-12.0) sec INR (<1.2) Sodium (137-145) mmol/L Potassium (3.5-5.1) mmol/L Chloride (98-107) mmol/L Carbon Dioxide (22-30) mmol/L Anion Gap mmol/L BUN (7-17) mg/dL Creatinine (0.52-1.04) mg/dL Est GFR (CKD-EPI)AfAm (>60 ml/min/1.73 sqM) Est GFR (CKD-EPI)NonAf (>60 ml/min/1.73 sqM) Glucose (74-99) mg/dL Calcium (8.4-10.2) mg/dL Urine Color Light Yellow Urine Appearance Clear (Clear) Urine pH 5.5 (5.0-8.0) Ur Specific Ada 1.014 (1.001-1.035) Urine Protein Negative (Negative) Urine Glucose (UA) Negative (Negative) Urine Ketones Negative (Negative) Urine Blood Trace H (Negative) Urine Nitrite Negative (Negative) Urine Bilirubin Negative (Negative) Urine Urobilinogen <2.0 (<2.0) mg/dL Ur Leukocyte Esterase Negative (Negative) Urine RBC 2 (0-5) /hpf Ur Squamous Epith Cells <1 (0-4) /hpf Urine Mucus Rare H (None) /hpf Stool Occult Blood Positive H (Negative) Disposition Clinical Impression: Hematochezia Disposition: ADMITTED IP TO THIS [facility] Condition: Stable Is patient prescribed a controlled substance at d/c from ED?: No Decision to Admit Reason: Admit from EC Decision Date: 06/25/21 Decision Time: 21:07
[2021-06-25 18:26] LABS: Basophils % (A) 0 %; Eosinophils # (A) 0.1 k/uL (0-0.7); Eosinophils % (A) 2 %; HCT 45.5 % (34.0-46.0); HGB 13.4 gm/dL (11.4-16.0); Hypochromasia Marked; Lymphocytes % (A) 22 %; MCH 24.5 pg (25.0-35.0); MCHC 29.5 g/dL (31.0-37.0); MCV 83.1 fL (80.0-100.0); Mean Platelet Volume 7.3; Monocytes # (A) 0.3 k/uL (0-1.0); Monocytes % (A) 6 %; Neutrophils # (A) 3.2 k/uL (1.3-7.7); Neutrophils % (A) 68 %; Platelet Count 187 k/uL (150-450); RBC 5.48 m/uL (3.80-5.40); RDW 14.1 % (11.5-15.5); WBC 4.7 k/uL (3.8-10.6)
[2021-06-25 18:34] LABS: African American GFR (CKD) >90 (>60 ml/min/1.73 sqM); Anion Gap 6 mmol/L; Blood Urea Nitrogen 23 mg/dL (7-17); Calcium 9.3 mg/dL (8.4-10.2); Carbon Dioxide 27 mmol/L (22-30); Chloride 105 mmol/L (98-107); Glucose 101 mg/dL (74-99); Non-African American GFR(CKD) 78 (>60 ml/min/1.73 sqM); Sodium 138 mmol/L (137-145)
[2021-06-25 18:37] LABS: Appearance,Urine Clear (Clear); Bilirubin,Urine Negative (Negative); Blood,Urine Trace (Negative); Color,Urine Light Yellow; Glucose,Urine (UA) Negative (Negative); Ketones,Urine Negative (Negative); Leukocyte Esterase,Urine Negative (Negative); Mucus,Urine Rare /hpf; Nitrite,Urine Negative (Negative); PH, Urine 5.5 (5.0-8.0); Protein,Urine Negative (Negative); RBC,Urine 2 /hpf (0-5); Specific Gravity,Urine 1.014 (1.001-1.035); Squamous Epithelial Cell,Urine <1 /hpf (0-4); Urobilinogen,Urine <2.0 mg/dL (<2.0)
[2021-06-25 18:43] LABS: Potassium 4.9 mmol/L (3.5-5.1)
[2021-06-25 18:46] LABS: Prothrombin Time 10.6 sec (9.0-12.0)
--- NOTE | 2021-06-25 19:51 | CT ---
EXAMINATION TYPE: CT abdomen pelvis w con DATE OF EXAM: 06/25/2021 COMPARISON: None HISTORY: abdominal pain and rectal bleeding CT DLP: 1531.3 mGycm Automated exposure control for dose reduction was used. CONTRAST: Performed with IV Contrast, patient injected with 100 mL of Isovue 300. Images obtained from the diaphragm to the floor the pelvis with IV contrast. Lung bases show minimal subsegmental atelectasis. Heart is borderline enlarged. No pericardial effusi on. No pleural effusion. Liver spleen and stomach pancreas and gallbladder appear intact. The bile ducts are nondilated. There is no adrenal mass. Kidneys show normal size and contour. There is no hydronephrosis. Delayed i mages show normal renal excretion. There is no retroperitoneal adenopathy. There is 2 cm cortical cys t anterior right kidney. Ureters are not dilated. Bladder distends smoothly. There is no inguinal her nilton. No free fluid in the pelvis. The lumbar vertebrae have normal alignment. There is some scalloping of the posterior aspect of the l umbar vertebral bodies. The bony pelvis is intact. Hip joints are intact. There is no mesenteric edema. No ascites or free air. No evidence of a bowel obstruction. Appendix no t seen. No sign of thickened appendix. IMPRESSION: There is some enlargement of the spinal canal that could relate to presence of myelocele.. No acute abnormality within the abdomen pelvis. Appendix not seen. No evidence of colitis.
[2021-06-25] MEDS ORDERED: NALOXONE 0.4 MG/ML 1 ML VIAL IV PRN (21:08)
[2021-06-25] MEDS: SODIUM CHLORIDE 0.9% 1,000 ML IV SCH (21:50)
[2021-06-26] MEDS: cycloSPORINE 0.05% OPHTH 0.4 ML DROPERETTE BOTH EYES SCH ×2 (00:45→08:02)
--- NOTE | 2021-06-26 01:45 | P.HPIM ---
History of Present Illness H&P Date: 06/25/21 The patient is a 56-year-old female with a PMH of ?arrythmia on Eliquis, flecainide, and Toprol, chronic right knee osteoarthritis with daily NSAID use, who presents to the emergency room with complaints of bright red blood per rectum. Patient reports that her symptoms started yesterday when she noticed bright red blood in the toilet bowl as well as upon wiping. She reports that her stomach feels "warm"as though she just consumed spicy food. She denied any history of GI bleeding. Denies experiencing black tarry stools, nausea or vomiting. Reports having 3-4 total bowel movements at home with small amounts of blood. Reports that the last BM was earlier today at 1 PM. Denies any history of peptic ulcers. Denies experiencing fever, chills, cough, chest pain, shortness of breath. Patient denies being on blood thinners but is currently on Eliquis as per her home medication list. CT abdomen and pelvis revealed no acute abnormalities. Laboratory evaluation revealed a hemoglobin of 13.4 with stool occult blood positive. Review of systems: Pertinent positives and negatives as discussed in HPI, a complete review of systems was performed and all other systems are negative. Physical examination: General: non toxic, no distress, appears at stated age, obese Derm: no unusual rashes/lesions no unusual ecchymoses, warm, dry Head: atraumatic, normocephalic, symmetric Eyes: EOMI, no lid lag, anicteric sclera, pupils equal round reactive to light ENT: Nose and ears atraumatic, no thrush, no pharyngeal erythema Neck: No thyromegaly, no cervical lymphadenopathy, trachea midline, supple Mouth: no lip lesion, mucus membranes moist Cardiovascular: S1S2 reg, no murmur, positive posterior tibial pulse bilateral, no edema, capillary refill less than 2 seconds Lungs: CTA bilateral, no rhonchi, no rales , no accessory muscle use Abdominal: soft, nontender to palpation, no guarding, no appreciable organomegaly, normal bowel sounds Ext: no gross muscle atrophy, muscle strength 5 out of 5 in all 4 extremities grossly, no contractures, Neuro: CN II-XI grossly intact, light touch intact all 4 extremities, finger to nose within normal limits, Psych: Alert, oriented, appropriate affect Assessment/plan Hematochezia in setting of Eliquis and NSAID use -Hold anticoagulants at this time -Surgery consulted for possible colonoscopy/EGD -Protonix -IV fluids -Nothing by mouth Chronic conditions: Patient reported arrhythmia (unknown type) -Continue with home medications aside from Eliquis DVT prophylaxis -IPCDs The patient is admitted with an anticipated less than 2 midnight stay for evaluation of BRBPR CODE STATUS: Full Code Discussed with: Patient Anticipated discharge date: in am Anticipated discharge place: Home Past Medical History Past Medical History: GERD/Reflux, Osteoarthritis (OA) Additional Past Medical History / Comment(s): states abdominal pain, frequent constipation History of Any Multi-Drug Resistant Organisms: None Reported Past Surgical History: Appendectomy, Orthopedic Surgery Additional Past Surgical History / Comment(s): 07/31/15 Laparoscopic Anna Fundoplication. 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 Past Anesthesia/Blood Transfusion Reactions: No Reported Reaction Past Psychological History: No Psychological Hx Reported Smoking Status: Never smoker Past Alcohol Use History: None Reported Past Drug Use History: None Reported - Past Family History Mother Family Medical History: Hyperlipidemia Medications and Allergies Home Medications Medication Instructions Recorded Confirmed Type Multivitamin [Multivitamins Adult 1 tab PO DAILY 01/12/19 06/25/21 History Gummies] Vitamin C/Biotin [Hair, Skin and 1 tab PO DAILY 11/04/19 06/25/21 History Nails Chew] Apixaban [Eliquis] 5 mg PO BID 06/25/21 06/25/21 History Cyclobenzaprine [Flexeril] 10 mg PO BID PRN 06/25/21 06/25/21 History Flecainide Acetate 100 mg PO BID 06/25/21 06/25/21 History Inflavonoid Intensive Care 2 cap PO DAILY 06/25/21 06/25/21 History Meclizine [Antivert] 25 mg PO TID PRN 06/25/21 06/25/21 History Metoprolol Succinate (ER) [Toprol 50 mg PO DAILY 06/25/21 06/25/21 History Xl] Naproxen Sodium 220 mg PO BID PRN 06/25/21 06/25/21 History Pantoprazole Sodium [Protonix] 40 mg PO DAILY 06/25/21 06/25/21 History Vitamin B-12 1,000mcg Gummy 1 cap PO DAILY 06/25/21 06/25/21 History cycloSPORINE 0.05% OPHTH SOLN 1 applicator BOTH EYES BID 06/25/21 06/25/21 History [Restasis] Allergies Allergy/AdvReac Type Severity Reaction Status Date / Time No Known Allergies Allergy Verified 06/25/21 19:22 Physical Exam Vitals: Vital Signs Temp Pulse Pulse Resp BP BP Pulse Ox 06/25/21 22:46 57 L 18 158/97 100 06/25/21 22:24 60 18 147/86 100 06/25/21 19:46 75 18 112/65 97 06/25/21 13:42 98.6 F 78 18 121/79 99 Intake and Output 06/25/21 06/25/21 06/26/21 14:59 22:59 06:59 Other: Weight 99.79 kg 99.79 kg Results CBC & Chem 7: 06/25/21 18:13 06/25/21 18:13 Labs: Abnormal Lab Results - Last 24 Hours (Table) 06/25/21 06/25/21 06/25/21 Range/Units 18:13 18:13 18:21 RBC 5.48 H (3.80-5.40) m/uL MCH 24.5 L (25.0-35.0) pg MCHC 29.5 L (31.0-37.0) g/dL BUN 23 H (7-17) mg/dL Glucose 101 H (74-99) mg/dL Urine Blood (Negative) Urine Mucus (None) /hpf Stool Occult Blood Positive H (Negative) 06/25/21 Range/Units 18:24 RBC (3.80-5.40) m/uL MCH (25.0-35.0) pg MCHC (31.0-37.0) g/dL BUN (7-17) mg/dL Glucose (74-99) mg/dL Urine Blood Trace H (Negative) Urine Mucus Rare H (None) /hpf Stool Occult Blood (Negative) Thrombosis Risk Factor Assmnt - Choose All That Apply Any of the Below Risk Factors Present?: Yes Each Factor Represents 1 point: Age 41-60 years, Obesity (BMI >25) Other Risk Factors: No Thrombosis Risk Factor Assessment Total Risk Factor Score: 2 Thrombosis Risk Factor Assessment Level: Low Risk
[2021-06-26 06:41] LABS: Basophils % (A) 0 %; Eosinophils # (A) 0.1 k/uL (0-0.7); Eosinophils % (A) 1 %; HCT 43.9 % (34.0-46.0); HGB 12.6 gm/dL (11.4-16.0); Hypochromasia Marked; Lymphocytes # (A) 1.2 k/uL (1.0-4.8); Lymphocytes % (A) 29 %; MCH 23.8 pg (25.0-35.0); MCHC 28.6 g/dL (31.0-37.0); MCV 83.1 fL (80.0-100.0); Mean Platelet Volume 7.3; Monocytes # (A) 0.3 k/uL (0-1.0); Monocytes % (A) 8 %; Neutrophils # (A) 2.5 k/uL (1.3-7.7); Neutrophils % (A) 59 %; Platelet Count 168 k/uL (150-450); RBC 5.28 m/uL (3.80-5.40); RDW 13.8 % (11.5-15.5); WBC 4.2 k/uL (3.8-10.6)
[2021-06-26 06:48] LABS: African American GFR (CKD) >90 (>60 ml/min/1.73 sqM); Anion Gap 9 mmol/L; Blood Urea Nitrogen 17 mg/dL (7-17); Carbon Dioxide 25 mmol/L (22-30); Chloride 106 mmol/L (98-107); Glucose 103 mg/dL (74-99); Non-African American GFR(CKD) 78 (>60 ml/min/1.73 sqM); Potassium 4.3 mmol/L (3.5-5.1); Sodium 140 mmol/L (137-145)
[2021-06-26 07:32] VITALS: BP 135/76; PULSE 56; RESP 16; TEMP 97.6
[2021-06-26] MEDS ORDERED: PANTOPRAZOLE 40 MG/10 ML VIAL IVP SCH (09:00)
[2021-06-26] MEDS ORDERED: FLECAINIDE 50 MG TAB PO SCH (09:00)
[2021-06-26] MEDS ORDERED: METOPROLOL SUCCINATE (ER) 50 MG TAB.ER.24H PO SCH (09:00)
--- NOTE | 2021-06-26 11:44 | P.GSCN ---
History of Present Illness Consult date: 06/26/21 History of present illness: CHIEF COMPLAINT: Rectal bleeding HISTORY OF PRESENT ILLNESS: This is a 56-year-old female who presented to the hospital with complaints of blood per rectum when she wiped after a bowel movement. She reports that symptoms started 3 days ago. She reports that she would have a warm sensation in the lower abdomen and then she would have a bowel movement. She reports the stool is brown. However, when she wiped she noted blood on the tissue paper. She denies history of hemorrhoids. She does take Eliquis and NSAIDs on a daily basis. Patient's last time she had blood per rectum was yesterday. She reports that she had blood 3 times on Thursday and once on Thursday when again when she wiped. He will begin on admission was 13.5 today at 12.6. Stool for occult blood is positive. Computed tomography scan of the abdomen and pelvis was essentially unremarkable. She had a EGD and colonoscopy in [address] Jordan that had revealed evidence of diverticulosis, superficial gastric ulcers, gastritis and hiatal hernia. Patient denies any nausea or vomiting. She reports some mild epigastric abdominal discomfort. PAST MEDICAL HISTORY: See list. PAST SURGICAL HISTORY: See list. MEDICATIONS: See list. ALLERGIES: See list. SOCIAL HISTORY: No illicit drug use. REVIEW OF SYSTEMS: CONSTITUTIONAL: Denies fever or chills. HEENT: Denies blurred vision, vision changes, or eye pain. Denies hemoptysis ENDOCRINE: Denies heat or cold intolerance. CARDIOVASCULAR: Denies chest pain or pressure. RESPIRATORY: No shortness of breath. GASTROINTESTINAL: Please refer to HPI NEURO: Denies history of seizures. PSYCH: No depression or suicidal ideation HEMATOLOGIC: Denies bleeding disorders. LYMPHATIC: The patient denies any lumps and bumps around the neck. GENITOURINARY: Denies any blood in urine or increased urinary frequency. MUSCULOSKELETAL: Denies myalgias. Denies joint swelling. Denies decreased range of motion beyond patients baseline. SKIN: Denies pruitis. Denies rash. PHYSICAL EXAM: VITAL SIGNS: Reviewed GENERAL: Well-developed in no acute distress. HEENT: No sclera icterus. Extraocular movements grossly intact. Moist buccal mucosa. Head is atraumatic, normocephalic. Hears conversational speech. No nasal drainage. NECK: Supple without lymphadenopathy. CHEST: Non-labored respirations and equal bilateral excursions. CARDIOVASCULAR: Palpable 2+ radial pulses. ABDOMEN: Soft. Nondistended. Diffuse tenderness and tenderness in the epigastric area MUSCULOSKELETAL: No clubbing or cyanosis. NEUROLOGIC: No focal or lateralizing signs. Cranial nerves II through XII grossly intact. PSYCH: Appropriate affect. Alert and oriented to person, place and time. SKIN: Well perfused. Good skin turgor. LABORATORY DATA: WBC 4.2 hemoglobin 12.6 platelets 168 Sodium 140 potassium 4.3 creatinine 0.83 Stool for occult blood positive IMAGING: Computed tomography scan abdomen and pelvis there is some enlargement of the spinal canal likely related to presence of myelocele. No acute abnormality within the abdomen and pelvis. Appendix not seen. No evidence of colitis. ASSESSMENT: 1. Hematochezia. Bright red blood per rectum noted on tissue paper. Hemoglobin is stable. No further bleeding reported 2. Patient on anticoagulation 3. Daily NSAID use for her osteoarthritis 4. Prior history of EGD and colonoscopy in February 2019 revealing diverticulosis, superficial gastric ulcers, gastritis and hiatal hernia PLAN: -Recommend EGD and colonoscopy. This can be completed outpatient. -Continue to monitor for signs or symptoms of bleeding -Recommend to hold naproxen and Eliquis Thank you for this consultation Physician Topographical Surveyor note has been reviewed by physician. Signing provider agrees with the documented findings, assessment, and plan of care. As above. Recommend hold anticoagulant in presence of active GI bleed. Upper and lower endoscopy advised. Past Medical History Past Medical History: GERD/Reflux, Osteoarthritis (OA) Additional Past Medical History / Comment(s): states abdominal pain, frequent constipation History of Any Multi-Drug Resistant Organisms: None Reported Past Surgical History: Appendectomy, Orthopedic Surgery Additional Past Surgical History / Comment(s): 07/31/15 Laparoscopic Anna Fundoplication. 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 Past Anesthesia/Blood Transfusion Reactions: No Reported Reaction Past Psychological History: No Psychological Hx Reported Smoking Status: Never smoker Past Alcohol Use History: None Reported Past Drug Use History: None Reported - Past Family History Mother Family Medical History: Hyperlipidemia Medications and Allergies Home Medications Medication Instructions Recorded Confirmed Type Multivitamin [Multivitamins Adult 1 tab PO DAILY 01/12/19 06/25/21 History Gummies] Vitamin C/Biotin [Hair, Skin and 1 tab PO DAILY 11/04/19 06/25/21 History Nails Chew] Apixaban [Eliquis] 5 mg PO BID 06/25/21 06/25/21 History Cyclobenzaprine [Flexeril] 10 mg PO BID PRN 06/25/21 06/25/21 History Flecainide Acetate 100 mg PO BID 06/25/21 06/25/21 History Inflavonoid Intensive Care 2 cap PO DAILY 06/25/21 06/25/21 History Meclizine [Antivert] 25 mg PO TID PRN 06/25/21 06/25/21 History Metoprolol Succinate (ER) [Toprol 50 mg PO DAILY 06/25/21 06/25/21 History XL] Pantoprazole Sodium [Protonix] 40 mg PO DAILY 06/25/21 06/25/21 History Vitamin B-12 1,000mcg Gummy 1 cap PO DAILY 06/25/21 06/25/21 History cycloSPORINE 0.05% OPHTH SOLN 1 applicator BOTH EYES BID 06/25/21 06/25/21 History [Restasis] Allergies Allergy/AdvReac Type Severity Reaction Status Date / Time No Known Allergies Allergy Verified 06/25/21 19:22 Surgical - Exam Vital Signs Temp Pulse Resp BP Pulse Ox 98.6 F 78 18 121/79 99 06/25/21 13:42 06/25/21 13:42 06/25/21 13:42 06/25/21 13:42 06/25/21 13:42 Results - Labs 06/26/21 05:26 06/26/21 05:26 Abnormal Lab Results - Last 24 Hours (Table) 06/25/21 06/25/21 06/25/21 Range/Units 18:13 18:13 18:21 RBC 5.48 H (3.80-5.40) m/uL MCH 24.5 L (25.0-35.0) pg MCHC 29.5 L (31.0-37.0) g/dL BUN 23 H (7-17) mg/dL Glucose 101 H (74-99) mg/dL Urine Blood (Negative) Urine Mucus (None) /hpf Stool Occult Blood Positive H (Negative) 06/25/21 06/26/21 06/26/21 Range/Units 18:24 05:26 05:26 RBC (3.80-5.40) m/uL MCH 23.8 L (25.0-35.0) pg MCHC 28.6 L (31.0-37.0) g/dL BUN (7-17) mg/dL Glucose 103 H (74-99) mg/dL Urine Blood Trace H (Negative) Urine Mucus Rare H (None) /hpf Stool Occult Blood (Negative) Diabetes panel 06/25/21 06/26/21 Range/Units 18:13 05:26 Sodium 138 140 (137-145) mmol/L Potassium 4.9 4.3 (3.5-5.1) mmol/L Chloride 105 106 (98-107) mmol/L Carbon Dioxide 27 25 (22-30) mmol/L BUN 23 H 17 (7-17) mg/dL Creatinine 0.83 0.83 (0.52-1.04) mg/dL Glucose 101 H 103 H (74-99) mg/dL Calcium 9.3 9.0 (8.4-10.2) mg/dL Calcium panel 06/25/21 06/26/21 Range/Units 18:13 05:26 Calcium 9.3 9.0 (8.4-10.2) mg/dL Pituitary panel 06/25/21 06/26/21 Range/Units 18:13 05:26 Sodium 138 140 (137-145) mmol/L Potassium 4.9 4.3 (3.5-5.1) mmol/L Chloride 105 106 (98-107) mmol/L Carbon Dioxide 27 25 (22-30) mmol/L BUN 23 H 17 (7-17) mg/dL Creatinine 0.83 0.83 (0.52-1.04) mg/dL Glucose 101 H 103 H (74-99) mg/dL Calcium 9.3 9.0 (8.4-10.2) mg/dL Adrenal panel 06/25/21 06/26/21 Range/Units 18:13 05:26 Sodium 138 140 (137-145) mmol/L Potassium 4.9 4.3 (3.5-5.1) mmol/L Chloride 105 106 (98-107) mmol/L Carbon Dioxide 27 25 (22-30) mmol/L BUN 23 H 17 (7-17) mg/dL Creatinine 0.83 0.83 (0.52-1.04) mg/dL Glucose 101 H 103 H (74-99) mg/dL Calcium 9.3 9.0 (8.4-10.2) mg/dL
[2021-06-26] MEDS ORDERED: diphenhydrAMINE 50 MG/ML 1 ML VIAL IVP STA (12:02)
[2021-06-26] MEDS ORDERED: FAMOTIDINE 20 MG/2 ML VIAL IV STA (12:02)
[2021-06-26] MEDS ORDERED: DEXAMETHASONE SOD PHOSPHATE 10 MG/ML 1 ML VIAL IVP STA (12:02)
[2021-06-26] MEDS: SODIUM CHLORIDE 0.9% 1,000 ML IV SCH (12:15)
--- NOTE | 2021-06-26 12:56 | P.DS ---
Providers Date of admission: 06/25/21 21:08 Expected date of discharge: 06/26/21 Attending physician: Romy Gonzalez MD Consults: 06/26/21 09:16 Consult Physician Routine Consulting Provider: Gianna Weiner Consult Reason/Comments: Hematochezia Do you want consulting provider notified?: Already Contacted Primary care physician: Physician Nonstaff Hospital Course: Discharge Diagnosis: Hematochezia in setting of Eliquis and NSAID use, patient reports only having noted bright red blood upon wiping denies noting any blood in the toilet or in stools. Hemoglobin trended and stable. Patient medically stable and cleared by general surgery for outpatient follow-up for scheduled endoscopy and colonoscopy. Patient to hold Eliquis pending clearance by general surgery to resume and recommend resuming as soon as clearance is received. Chronic conditions: Patient reported arrhythmia (unknown type) may resume Eliquis once cleared by general surgery and to continue daily medication regimen with metoprolol and flecainide. Chronic osteoarthritis, instructed patient that she can no longer take NSAIDs with anticoagulants as this significantly increases her risks of bleeding. Patient verbalized understanding and recommended to use alternative pain medication regimen such as Tylenol. Hospital Course: The patient is a 56-year-old female with a PMH of a reported unknown arrythmia on Eliquis, flecainide, and Toprol, chronic right knee osteoarthritis with daily NSAID use, who presents to the emergency room with complaints of bright red blood per rectum. Patient reports that her symptoms started yesterday when she noticed bright red blood that dripped in the toilet bowl as well as upon wiping. She reported that her stomach felt "warm"as though she just consumed spicy food, but denied experiencing any abdominal pain, bloating, or discomfort. She denied any history of GI bleeding. Denied experiencing black tarry stools, nausea or vomiting or having any episodes of blood mixed in her stool . Reports having 3-4 total bowel movements at home with small amounts of bright red blood on tissue paper only upon wiping and not in stool. Denied any history of peptic ulcers or previously known hemorrhoids . She underwent a CT abdomen and pwhich was negative for acute intra-abdominal process. Laboratory evaluation revealed a hemoglobin of 13.4 with stool occult blood positive. . Patient was admitted under our services with consultation to general surgery. Repeat morning h emoglobin stable at 12.6 and remainder of labs unremarkable. Eliquis was held and General surgery evaluated. General surgery clearing patient for outpatient follow-up in their office with planned outpatient endoscopy and colonoscopy. During hospitalization patient ate red Jell-O and had ALLERGIC reaction with mild swelling requiring treatment with Benadryl, steroids, and Pepcid. Patient was evaluated and had mild swelling of left lower parotid region of her jaw and had no noted angioedema, rash, or difficulty swallowing. Patient was medicated resulting in significant improvement of swelling. Patient medically stable for discharge at this time, verbalized understanding of holding her anticoagulation until cleared by general surgery to resume and recommended to resume as soon as she receives clearance. Patient also verbalized that she is on understanding that she can no longer take naproxen or other NSAIDs such as ibuprofen for treatment of her osteoarthritis and lastly patient reports she is eager to get home and eat some food. Vital signs stable with blood pressure 135/76, heart rate 56, respiratory rate 16, and SpO2 98% on room air. Physical examination: General: non toxic, no distress, appears at stated age, obese Derm: no unusual rashes/lesions no unusual ecchymoses, warm, dry Head: atraumatic, normocephalic, symmetric Eyes: EOMI, no lid lag, anicteric sclera, pupils equal round reactive to light ENT: Nose and ears atraumatic, no thrush, no pharyngeal erythema Neck: No thyromegaly, no cervical lymphadenopathy, trachea midline, supple Mouth: no lip lesion, mucus membranes moist Cardiovascular: S1S2 reg, no murmur, positive posterior tibial pulse bilateral, no edema, capillary refill less than 2 seconds Lungs: CTA bilateral, no rhonchi, no rales , no accessory muscle use Abdominal: soft, nontender to palpation, no guarding, no appreciable organomegaly, normal bowel sounds Ext: no gross muscle atrophy, muscle strength 5 out of 5 in all 4 extremities grossly, no contractures, Neuro: CN II-XI grossly intact, light touch intact all 4 extremities, finger to nose within normal limits, Psych: Alert, oriented, appropriate affect A total of 38 minutes of time were spent preparing this complex discharge summary. Pt was discharged on 06/26/21 at 11:33 AM I reviewed the documentation as provided by the JACOB above, who is the original author of this note. I agree with the documented assessment and plan, with the following changes: none Patient Condition at Discharge: Stable Plan - Discharge Summary New Discharge Prescriptions: Continue Multivitamin [Multivitamins Adult Gummies] 1 tab PO DAILY Vitamin C/Biotin [Hair, Skin and Nails Chew] 1 tab PO DAILY cycloSPORINE 0.05% OPHTH SOLN [Restasis] 1 applicator BOTH EYES BID Meclizine [Antivert] 25 mg PO TID PRN PRN Reason: Vertigo Pantoprazole Sodium [Protonix] 40 mg PO DAILY Metoprolol Succinate (ER) [Toprol XL] 50 mg PO DAILY Flecainide Acetate 100 mg PO BID Cyclobenzaprine [Flexeril] 10 mg PO BID PRN PRN Reason: Muscle Spasm Vitamin B-12 1,000mcg Gummy 1 cap PO DAILY Inflavonoid Intensive Care 2 cap PO DAILY Discontinued Naproxen Sodium 220 mg PO BID PRN PRN Reason: Pain No Action Apixaban [Eliquis] 5 mg PO BID Discharge Medication List Multivitamin [Multivitamins Adult Gummies] 1 tab PO DAILY 01/12/19 [History] Vitamin C/Biotin [Hair, Skin and Nails Chew] 1 tab PO DAILY 11/04/19 [History] Apixaban [Eliquis] 5 mg PO BID 06/25/21 [History] Cyclobenzaprine [Flexeril] 10 mg PO BID PRN 06/25/21 [History] Flecainide Acetate 100 mg PO BID 06/25/21 [History] Inflavonoid Intensive Care 2 cap PO DAILY 06/25/21 [History] Meclizine [Antivert] 25 mg PO TID PRN 06/25/21 [History] Metoprolol Succinate (ER) [Toprol XL] 50 mg PO DAILY 06/25/21 [History] Pantoprazole Sodium [Protonix] 40 mg PO DAILY 06/25/21 [History] Vitamin B-12 1,000mcg Gummy 1 cap PO DAILY 06/25/21 [History] cycloSPORINE 0.05% OPHTH SOLN [Restasis] 1 applicator BOTH EYES BID 06/25/21 [History] Follow up Appointment(s)/Referral(s): Tani Meraz MD [STAFF PHYSICIAN] - 1 Week Gianna Weiner MD [STAFF PHYSICIAN] - 07/02/21 9:30 am Patient Instructions/Handouts: Rectal Bleeding (DC) Activity/Diet/Wound Care/Special Instructions: Activity: As tolerated. Take breaks as needed. Diet: Heart healthy and carb consistent diet. Avoid salts, or foods with hidden salts such as canned or boxed foods and frozen dinners. Extra salt makes your heart work harder and traps the fluid in your body for longer. Special Instructions: Take all of your medications as directed and remember to keep all of your doctor's appointments and follow-up as needed. Hold your anticoagulant, Eliquis until futher cleared by Dr. Weiner on your follow up appoinment and scope. It is important even once you resume your anticoagulant to avoid NSAIDs including ibuprofen and naproxen. Thank you for allowing us to participate in your care, it was truly a pleasure having you for our patient!!! Discharge Disposition: HOME SELF-CARE
== END 2021-06-26 13:22 | disposition home or self-care (01) ==
LOC: EC 13:32 → 6NMEDSUR 21:08
PROVIDERS: ADMIT Internal Medicine; ATTEND Internal Medicine
DX: K62.5 Hemorrhage of anus and rectum (principal); K21.9 Gastro-esophageal reflux disease without esophagitis; I49.9 Cardiac arrhythmia, unspecified; M17.11 Unilateral primary osteoarthritis, right knee; K57.90 Diverticulosis of intestine, part unspecified, without perforation or abscess without bleeding; K44.9 Diaphragmatic hernia without obstruction or gangrene; R22.0 Localized swelling, mass and lump, head; K59.00 Constipation, unspecified; E66.9 Obesity, unspecified; Z68.32 Body mass index [BMI] 32.0-32.9, adult; Z79.01 Long term (current) use of anticoagulants; Z79.1 Long term (current) use of non-steroidal anti-inflammatories (NSAID); Z79.899 Other long term (current) drug therapy; Z91.018 Allergy to other foods; Z90.49 Acquired absence of other specified parts of digestive tract; Z89.021 Acquired absence of right finger(s); Z98.890 Other specified postprocedural states; Z87.11 Personal history of peptic ulcer disease; Z87.19 Personal history of other diseases of the digestive system; Z83.49 Family history of other endocrine, nutritional and metabolic diseases
CPT/HCPCS: 96374; 96375; 99285; 36415; 80048 ×2; 85025 ×2; 85610; 82272; 81001; 74177; G0378 ×2; J1200; J1100; C9113; Q9967